=== PATIENT | male | born 1945 | race Caucasian/White ===

== ENCOUNTER 2022-07-04 10:29 | Inpatient (IN) | payer MEDICARE, OTHER ==
[~2022-07-04] VITALS: Ht 182.9 cm; Wt 98.2 kg
[~2022-07-04 10:29] MED LIST: ASPI-378 PO; CARV12.544 PO; CLOP75TA70 PO; HYDROIN8 EX; INSLANTI SC; LISI-716 PO; METF-372 PO; NITR0.4S29 SL; PANT1INJ3 PO; ROSU40TA PO
[2022-07-04] MEDS ORDERED: ASPirin 325 MG TAB PO ONE (11:45)
[2022-07-04] MEDS ORDERED: IPRATROPIUM BROM 0.5 MG/2.5ML INH SOL NEB ONE (11:45)
[2022-07-04] MEDS ORDERED: ALBUTEROL SULF 2.5 MG/0.5ML(0.5%) NEB SOLN NEB ONE (11:45)
[2022-07-04 12:14] LABS: Basophils # (auto) 0 10 ^3/uL (0-0.2); Basophils % (auto) 0.5 % (0.0-2.0); Eosinophils # (auto) 0 10 ^3/uL (0-0.8); Eosinophils % (auto) 0.3 % (0.0-7.0); Hematocrit 37.7 % (41.0-53.0); Hemoglobin 12.4 g/dL (13.5-17.5); Lymphocytes # (auto) 1.6 10 ^3/uL (0.4-5.4); Lymphocytes % (auto) 17.1 % (10.0-50.0); Mean Corpuscular Hgb Conc. 32.8 g/dL (32.0-36.0); Mean Corpuscular Volume 88.6 fL (80.0-100.0); Monocytes # (auto) 1.1 10 ^3/uL (0-1.3); Monocytes % (auto) 11.5 % (0.0-12.0); Neutrophils # (auto) 6.4 10 ^3/uL (1.6-8.6); Neutrophils % (auto) 70.6 % (37.0-80.0); Red Blood Cells 4.26 10^6/uL (4.5-5.90); Red Cell Distribution Width 16.3 % (11.8-14.3); White Blood Cell 9.1 10^3/uL (4.4-10.8)
[2022-07-04 12:29] LABS: Urine Blood 2+ /uL (Negative); Urine Specific Gravity 1.021 (1.001-1.035)
[2022-07-04 12:33] LABS: BUN/Creatinine Ratio 15.3; Calcium 8.7 mg/dL (8.5-10.1); Potassium 4.3 mmol/L (3.5-5.1)
[2022-07-04 12:34] LABS: Albumin 3.3 g/dL (3.4-5.0)
[2022-07-04 12:35] LABS: Bilirubin, Total 0.5 mg/dL (0.2-1.0); Total Protein 6.5 g/dL (6.4-8.2)
[2022-07-04 12:41] LABS: Urine WBC 7 /hpf (0 - 3)
[2022-07-04 12:42] LABS: Urine Bacteria NONE SEEN /hpf (None Seen); Urine Budding Yeast Rare /hpf (None Seen)
[2022-07-04] MEDS ORDERED: DEXTROSE (50%) 50ML SYRG IV PRN (14:15)
[2022-07-04] MEDS ORDERED: NITROGLYCERIN 0.4 MG SL TAB SL PRN (14:15)
[2022-07-04] MEDS ORDERED: MORPHINE SULFATE INJ 2 MG/ml SYRG IV PRN (14:15)
[2022-07-04] MEDS ORDERED: ALBUTEROL SULF 2.5 MG/0.5ML(0.5%) NEB SOLN NEB PRN (14:15)
[2022-07-04] MEDS ORDERED: SODIUM CHLORIDE 0.9% 1,000 ML IV ONE (14:30)
[2022-07-04] MEDS ORDERED: cefTRIAXone 1GM/50ML D5W 50 ML IV ONE (14:30)
[2022-07-04] MEDS ORDERED: METOPROLOL TARTRATE 25 MG TAB PO ONE (14:45)
[2022-07-04 14:57] VITALS: BP 111/72
[2022-07-04 15:22] LABS: Cholesterol 109 mg/dL (< 200)
[2022-07-04 15:23] LABS: % Iron Saturation 9.6 % (20-55)
[2022-07-04 15:25] LABS: HDL Cholesterol 49 mg/dL (40-59); LDL Cholesterol 51 mg/dL (< 100); Triglycerides 165 mg/dL (< 150)
[2022-07-04] MEDS: ACCU-CHEK COMFORT CURVE STRIP VI SCH ×2 (17:00→22:00)
[2022-07-04] MEDS: IPRATROPIUM BROM 0.5 MG/2.5ML INH SOL NEB SCH (18:00)
[2022-07-04] MEDS: ALBUTEROL SULF 2.5 MG/0.5ML(0.5%) NEB SOLN NEB SCH (18:00)
[2022-07-04] MEDS: InsuLIN REG 1unit/0.01ml Soln (100units/ml) SC SCH ×2 (18:44→22:00)
[2022-07-04] MEDS: SODIUM CHLORIDE 0.9% 1,000 ML IV SCH (19:42)
[2022-07-04] MEDS: CARVEDILOL 12.5 MG TAB PO SCH (19:46)
[2022-07-04] MEDS ORDERED: METOPROLOL TARTRATE 25 MG TAB PO SCH (22:00)
[2022-07-04] MEDS ORDERED: CARVEDILOL 12.5 MG TAB PO SCH (22:00)
[2022-07-04] MEDS: LISINOPRIL 10 MG TAB PO SCH (23:00)
[2022-07-04] MEDS: ASCORBIC ACID 500 MG TAB PO SCH (23:22)
[2022-07-04] MEDS: ENOXAPARIN SOD 100 MG/1 ML SYRINGE SC SCH (23:23)
[2022-07-05] MEDS ORDERED: IPRATROPIUM BROM 0.5 MG/2.5ML INH SOL ONE (00:40)
[2022-07-05] MEDS: METOPROLOL TARTRATE 1MG/1ML-5ML VIAL IV SCH ×3 (00:59→13:38)
[2022-07-05] MEDS: IPRATROPIUM BROM 0.5 MG/2.5ML INH SOL NEB SCH ×5 (01:00→23:36)
[2022-07-05] MEDS ORDERED: SODIUM CHLORIDE 0.9% 500 ML IV ONE (03:30)
[2022-07-05] MEDS ORDERED: ALBUTEROL MEDNEB 2.5 mg/3ml NEB ONE (05:48)
[2022-07-05] MEDS: CARVEDILOL 12.5 MG TAB PO SCH ×2 (07:34→20:15)
[2022-07-05] MEDS: ACCU-CHEK COMFORT CURVE STRIP VI SCH ×4 (07:38→23:09)
[2022-07-05] MEDS: InsuLIN REG 1unit/0.01ml Soln (100units/ml) SC SCH ×4 (07:43→22:00)
[2022-07-05 07:53] LABS: Basophils # (auto) 0 10 ^3/uL (0-0.2); Basophils % (auto) 0.5 % (0.0-2.0); Eosinophils # (auto) 0 10 ^3/uL (0-0.8); Eosinophils % (auto) 0.6 % (0.0-7.0); Hemoglobin 12.5 g/dL (13.5-17.5); Lymphocytes # (auto) 1.4 10 ^3/uL (0.4-5.4); Lymphocytes % (auto) 18.3 % (10.0-50.0); Mean Corpuscular Hemoglobin 28.9 pg (28.0-32.0); Mean Corpuscular Hgb Conc. 32.8 g/dL (32.0-36.0); Mean Corpuscular Volume 88.1 fL (80.0-100.0); Monocytes # (auto) 0.7 10 ^3/uL (0-1.3); Neutrophils # (auto) 5.4 10 ^3/uL (1.6-8.6); Neutrophils % (auto) 71.6 % (37.0-80.0); Red Blood Cells 4.31 10^6/uL (4.5-5.90); White Blood Cell 7.6 10^3/uL (4.4-10.8)
[2022-07-05 07:58] LABS: Albumin 3.1 g/dL (3.4-5.0); Calcium 8.4 mg/dL (8.5-10.1)
[2022-07-05 08:01] LABS: BUN/Creatinine Ratio 16.5; Bilirubin, Total 0.4 mg/dL (0.2-1.0); Phosphorus 4.4 mg/dL (2.5-4.90); Total Protein 6.9 g/dL (6.4-8.2); Uric Acid 7.4 mg/dL (3.5-7.2)
[2022-07-05] MEDS: ALBUTEROL SULF 2.5 MG/0.5ML(0.5%) NEB SOLN NEB SCH ×3 (08:29→12:30)
[2022-07-05] MEDS: SODIUM CHLORIDE 0.9% 1,000 ML IV SCH (09:00)
[2022-07-05] MEDS ORDERED: cefTRIAXone 1GM/50ML D5W 50 ML IV SCH (09:00)
[2022-07-05] MEDS ORDERED: ASPirin-EC 81 mg tab PO SCH (10:00)
[2022-07-05] MEDS ORDERED: LORazepam 2MG/ML-1ML VIAL IV PRN (10:00)
[2022-07-05] MEDS ORDERED: ENOXAPARIN SOD 40 MG/0.4 ML SYRINGE SC SCH (10:00)
[2022-07-05] MEDS: ASPirin 81 mg TAB PO SCH (11:11)
[2022-07-05] MEDS: ATORVASTATIN 20 MG TAB PO SCH (11:11)
[2022-07-05] MEDS: ASCORBIC ACID 500 MG TAB PO SCH ×2 (11:12→23:07)
[2022-07-05] MEDS: MULTIPLE VITAMIN TAB PO SCH (11:12)
[2022-07-05] MEDS: ENOXAPARIN SOD 100 MG/1 ML SYRINGE SC SCH ×2 (11:13→23:08)
[2022-07-05] MEDS: ZINC SULFATE 220mg CAP or TAB PO SCH (11:15)
[2022-07-05] MEDS: LISINOPRIL 10 MG TAB PO SCH (11:15)
[2022-07-05] MEDS ORDERED: AMIODARONE HCL 150 MG in D5W 5% 100 ML IV ONE (12:00)
[2022-07-05] MEDS ORDERED: METOPROLOL TARTRATE 1MG/1ML-5ML VIAL IV ONE (12:00)
[2022-07-05] MEDS ORDERED: DIGOXIN (250MCG/ML) 2 ML AMPULE IV ONE (12:00)
[2022-07-05] MEDS ORDERED: AMIODARONE 450mg/250ml AE 250 ML IV SCH (12:15)
[2022-07-05] MEDS ORDERED: SODIUM BICARBONATE 50ML VIAL 50 ML in SOD CHL 0.45% 1,000 ML IV SCH (14:45)
[2022-07-05] MEDS: TAMSULOSIN HYDROCHLORIDE 0.4 MG CAP PO SCH (18:25)
[2022-07-05 20:00] VITALS: BP 125/80
[2022-07-05] MEDS: AMIODARONE 450mg/250ml AE 250 ML IV SCH (20:45)
[2022-07-05 21:28] VITALS: BP 125/80
[2022-07-05 22:08] VITALS: BP 125/80
[2022-07-05] MEDS: SODIUM BICARBONATE 650 MG TAB PO SCH (23:06)
[2022-07-06] VITALS (7 sets, daily range): BP systolic 113–138; BP diastolic 64–89
[2022-07-06] MEDS: IPRATROPIUM BROM 0.5 MG/2.5ML INH SOL NEB SCH ×3 (06:00→11:11)
[2022-07-06] MEDS: InsuLIN REG 1unit/0.01ml Soln (100units/ml) SC SCH ×4 (06:01→21:21)
[2022-07-06] MEDS: ACCU-CHEK COMFORT CURVE STRIP VI SCH ×4 (06:07→21:49)
[2022-07-06] MEDS: CARVEDILOL 12.5 MG TAB PO SCH (06:31)
[2022-07-06] MEDS: PRIMIDONE 50 MG TAB PO SCH ×2 (06:32→21:49)
[2022-07-06] MEDS ORDERED: ADENOSINE 81 MG in GIVE UN-DILUTED 0 ML IV STA (07:35)
[2022-07-06] MEDS: ASPirin 81 mg TAB PO SCH (10:26)
[2022-07-06] MEDS: ENOXAPARIN SOD 100 MG/1 ML SYRINGE SC SCH (10:26)
[2022-07-06] MEDS: DIGOXIN 0.125 MG TAB PO SCH (10:26)
[2022-07-06] MEDS: AMIODARONE 450mg/250ml AE 250 ML IV SCH (10:26)
[2022-07-06] MEDS: ATORVASTATIN 20 MG TAB PO SCH (10:27)
[2022-07-06] MEDS: ZINC SULFATE 220mg CAP or TAB PO SCH (10:27)
[2022-07-06] MEDS: SODIUM BICARBONATE 650 MG TAB PO SCH ×2 (10:27→21:47)
[2022-07-06] MEDS: ASCORBIC ACID 500 MG TAB PO SCH ×2 (10:27→21:48)
[2022-07-06] MEDS: MULTIPLE VITAMIN TAB PO SCH (10:27)
[2022-07-06 11:42] LABS: Basophils # (auto) 0.1 10 ^3/uL (0-0.2); Basophils % (auto) 0.6 % (0.0-2.0); Eosinophils # (auto) 0.1 10 ^3/uL (0-0.8); Eosinophils % (auto) 0.9 % (0.0-7.0); Hematocrit 41.4 % (41.0-53.0); Hemoglobin 13.5 g/dL (13.5-17.5); Lymphocytes # (auto) 1.4 10 ^3/uL (0.4-5.4); Lymphocytes % (auto) 14.1 % (10.0-50.0); Mean Corpuscular Hemoglobin 29.3 pg (28.0-32.0); Mean Corpuscular Hgb Conc. 32.6 g/dL (32.0-36.0); Mean Corpuscular Volume 89.7 fL (80.0-100.0); Monocytes # (auto) 0.8 10 ^3/uL (0-1.3); Monocytes % (auto) 8.1 % (0.0-12.0); Neutrophils # (auto) 7.6 10 ^3/uL (1.6-8.6); Neutrophils % (auto) 76.3 % (37.0-80.0); Red Blood Cells 4.61 10^6/uL (4.5-5.90); Red Cell Distribution Width 16.4 % (11.8-14.3)
[2022-07-06 11:50] LABS: Albumin 2.9 g/dL (3.4-5.0); BUN/Creatinine Ratio 15.7; Calcium 8.5 mg/dL (8.5-10.1); Potassium 4.7 mmol/L (3.5-5.1)
[2022-07-06 11:53] LABS: Bilirubin, Total 0.4 mg/dL (0.2-1.0); Total Protein 6.5 g/dL (6.4-8.2)
[2022-07-06] MEDS ORDERED: AMIODARONE HCL 200 MG TAB PO ONE (15:15)
[2022-07-06] MEDS ORDERED: MAGNESIUM SULFATE 1GM/100ML 100 ML IV ONE (15:15)
[2022-07-06] MEDS: TAMSULOSIN HYDROCHLORIDE 0.4 MG CAP PO SCH (17:36)
[2022-07-06] MEDS: AMIODARONE HCL 200 MG TAB PO SCH (21:47)
[2022-07-07 05:00] VITALS: BP 129/75
[2022-07-07] MEDS: InsuLIN REG 1unit/0.01ml Soln (100units/ml) SC SCH ×4 (06:02→22:07)
[2022-07-07] MEDS: PRIMIDONE 50 MG TAB PO SCH (06:35)
[2022-07-07] MEDS: ACCU-CHEK COMFORT CURVE STRIP VI SCH ×4 (06:36→22:03)
[2022-07-07 07:05] LABS: Basophils # (auto) 0.1 10 ^3/uL (0-0.2); Basophils % (auto) 0.8 % (0.0-2.0); Eosinophils # (auto) 0.2 10 ^3/uL (0-0.8); Eosinophils % (auto) 2.7 % (0.0-7.0); Hematocrit 36.9 % (41.0-53.0); Hemoglobin 12.5 g/dL (13.5-17.5); Lymphocytes # (auto) 1.2 10 ^3/uL (0.4-5.4); Lymphocytes % (auto) 17.6 % (10.0-50.0); Mean Corpuscular Hemoglobin 29.4 pg (28.0-32.0); Mean Corpuscular Hgb Conc. 33.8 g/dL (32.0-36.0); Mean Corpuscular Volume 87.1 fL (80.0-100.0); Monocytes # (auto) 0.7 10 ^3/uL (0-1.3); Monocytes % (auto) 10.5 % (0.0-12.0); Neutrophils # (auto) 4.7 10 ^3/uL (1.6-8.6); Neutrophils % (auto) 68.4 % (37.0-80.0); Red Blood Cells 4.24 10^6/uL (4.5-5.90); Red Cell Distribution Width 16.1 % (11.8-14.3); White Blood Cell 6.9 10^3/uL (4.4-10.8)
[2022-07-07 07:44] LABS: BUN/Creatinine Ratio 14.1; Calcium 8.6 mg/dL (8.5-10.1); Potassium 3.9 mmol/L (3.5-5.1)
[2022-07-07 08:00] VITALS: BP 140/86
[2022-07-07 08:10] VITALS: BP 140/86
[2022-07-07] MEDS: ZINC SULFATE 220mg CAP or TAB PO SCH (09:37)
[2022-07-07] MEDS: ASPirin 81 mg TAB PO SCH (09:37)
[2022-07-07] MEDS: AMIODARONE HCL 200 MG TAB PO SCH ×2 (09:38→22:02)
[2022-07-07] MEDS: DIGOXIN 0.125 MG TAB PO SCH (09:38)
[2022-07-07] MEDS: METOPROLOL SUCCINATE XL 50 MG TAB PO SCH (09:39)
[2022-07-07] MEDS: MULTIPLE VITAMIN TAB PO SCH (09:39)
[2022-07-07] MEDS: ENOXAPARIN SOD 40 MG/0.4 ML SYRINGE SC SCH (09:40)
[2022-07-07] MEDS: ASCORBIC ACID 500 MG TAB PO SCH ×2 (09:40→22:02)
[2022-07-07] MEDS ORDERED: dilTIAZem 25 MG/5 ML VIAL IV ONE (10:00)
[2022-07-07] MEDS: ATORVASTATIN 20 MG TAB PO SCH (10:17)
[2022-07-07 12:05] VITALS: BP 98/68
[2022-07-07] MEDS ORDERED: MAGNESIUM OXIDE 400 MG TAB PO ONE (13:00)
[2022-07-07] MEDS ORDERED: POTASSIUM EFFERVESENT TAB 25 MEQ GT ONE (13:00)
[2022-07-07 16:10] VITALS: BP 100/69
[2022-07-07] MEDS: TAMSULOSIN HYDROCHLORIDE 0.4 MG CAP PO SCH (18:22)
[2022-07-07 22:37] VITALS: BP 114/74
[2022-07-08 05:04] VITALS: BP 126/83
[2022-07-08] MEDS: ACCU-CHEK COMFORT CURVE STRIP VI SCH ×4 (06:37→21:47)
[2022-07-08] MEDS: PRIMIDONE 50 MG TAB PO SCH (06:37)
[2022-07-08] MEDS: InsuLIN REG 1unit/0.01ml Soln (100units/ml) SC SCH ×4 (06:37→21:48)
[2022-07-08 06:46] LABS: Basophils # (auto) 0.1 10 ^3/uL (0-0.2); Basophils % (auto) 0.9 % (0.0-2.0); Eosinophils # (auto) 0.2 10 ^3/uL (0-0.8); Eosinophils % (auto) 3.6 % (0.0-7.0); Hemoglobin 11.8 g/dL (13.5-17.5); Lymphocytes # (auto) 1.5 10 ^3/uL (0.4-5.4); Lymphocytes % (auto) 22.3 % (10.0-50.0); Mean Corpuscular Hemoglobin 28.6 pg (28.0-32.0); Mean Corpuscular Hgb Conc. 32.7 g/dL (32.0-36.0); Mean Corpuscular Volume 87.5 fL (80.0-100.0); Monocytes # (auto) 0.6 10 ^3/uL (0-1.3); Monocytes % (auto) 9.5 % (0.0-12.0); Neutrophils # (auto) 4.2 10 ^3/uL (1.6-8.6); Neutrophils % (auto) 63.7 % (37.0-80.0); Red Blood Cells 4.12 10^6/uL (4.5-5.90); Red Cell Distribution Width 15.9 % (11.8-14.3); White Blood Cell 6.6 10^3/uL (4.4-10.8)
[2022-07-08 06:49] LABS: BUN/Creatinine Ratio 13.5; Calcium 8.2 mg/dL (8.5-10.1); Potassium 3.8 mmol/L (3.5-5.1)
[2022-07-08 08:30] VITALS: BP 126/83
[2022-07-08 09:00] VITALS: BP 131/90
[2022-07-08] MEDS: ZINC SULFATE 220mg CAP or TAB PO SCH (09:44)
[2022-07-08] MEDS: ASPirin 81 mg TAB PO SCH (09:44)
[2022-07-08] MEDS: DIGOXIN 0.125 MG TAB PO SCH (09:45)
[2022-07-08] MEDS: AMIODARONE HCL 200 MG TAB PO SCH ×2 (09:45→21:45)
[2022-07-08] MEDS: MULTIPLE VITAMIN TAB PO SCH (09:46)
[2022-07-08] MEDS: ATORVASTATIN 20 MG TAB PO SCH (09:46)
[2022-07-08] MEDS: ASCORBIC ACID 500 MG TAB PO SCH ×2 (09:47→21:42)
[2022-07-08] MEDS: METOPROLOL SUCCINATE XL 50 MG TAB PO SCH (09:47)
[2022-07-08] MEDS: ENOXAPARIN SOD 40 MG/0.4 ML SYRINGE SC SCH (09:48)
[2022-07-08 13:11] VITALS: BP 138/81
[2022-07-08] MEDS ORDERED: MAGNESIUM SULFATE 1GM/100ML 100 ML IV ONE (14:45)
[2022-07-08 16:57] VITALS: BP 119/76
[2022-07-08] MEDS: TAMSULOSIN HYDROCHLORIDE 0.4 MG CAP PO SCH (17:52)
[2022-07-08] MEDS: APIXABAN 2.5 MG TAB PO SCH (21:43)
[2022-07-08 21:47] VITALS: BP 105/64
[2022-07-08] MEDS ORDERED: ENOXAPARIN SOD 100 MG/1 ML SYRINGE SC SCH (22:00)
[2022-07-09] VITALS: BP 114/70
[2022-07-09 04:51] VITALS: BP 119/79
[2022-07-09 06:04] LABS: Basophils # (auto) 0 10 ^3/uL (0-0.2); Basophils % (auto) 0.7 % (0.0-2.0); Eosinophils # (auto) 0.3 10 ^3/uL (0-0.8); Eosinophils % (auto) 4.3 % (0.0-7.0); Hematocrit 35.3 % (41.0-53.0); Hemoglobin 11.5 g/dL (13.5-17.5); Lymphocytes # (auto) 1.4 10 ^3/uL (0.4-5.4); Lymphocytes % (auto) 18.9 % (10.0-50.0); Mean Corpuscular Hemoglobin 28.5 pg (28.0-32.0); Mean Corpuscular Hgb Conc. 32.7 g/dL (32.0-36.0); Mean Corpuscular Volume 87.3 fL (80.0-100.0); Monocytes # (auto) 0.7 10 ^3/uL (0-1.3); Monocytes % (auto) 9.6 % (0.0-12.0); Neutrophils # (auto) 4.8 10 ^3/uL (1.6-8.6); Neutrophils % (auto) 66.5 % (37.0-80.0); Red Blood Cells 4.04 10^6/uL (4.5-5.90); Red Cell Distribution Width 15.6 % (11.8-14.3); White Blood Cell 7.2 10^3/uL (4.4-10.8)
[2022-07-09] MEDS: InsuLIN REG 1unit/0.01ml Soln (100units/ml) SC SCH ×4 (06:15→21:22)
[2022-07-09] MEDS: ACCU-CHEK COMFORT CURVE STRIP VI SCH ×4 (06:15→21:22)
[2022-07-09] MEDS: PRIMIDONE 50 MG TAB PO SCH (06:20)
[2022-07-09 06:25] LABS: Calcium 8.4 mg/dL (8.5-10.1); Magnesium 1.8 mg/dL (1.6-2.6)
[2022-07-09 06:27] LABS: BUN/Creatinine Ratio 13.5
[2022-07-09] MEDS ORDERED: dilTIAZem 25 MG/5 ML VIAL IV ONE (07:15)
[2022-07-09 08:00] VITALS: BP 131/90
[2022-07-09 08:22] VITALS: BP 122/60
[2022-07-09] MEDS: AMIODARONE HCL 200 MG TAB PO SCH ×2 (08:56→21:22)
[2022-07-09] MEDS: ZINC SULFATE 220mg CAP or TAB PO SCH (08:56)
[2022-07-09] MEDS: MULTIPLE VITAMIN TAB PO SCH (08:58)
[2022-07-09] MEDS: ATORVASTATIN 20 MG TAB PO SCH (08:58)
[2022-07-09] MEDS: METOPROLOL SUCCINATE XL 50 MG TAB PO SCH (08:58)
[2022-07-09] MEDS: APIXABAN 2.5 MG TAB PO SCH ×2 (08:58→21:22)
[2022-07-09] MEDS: DIGOXIN 0.125 MG TAB PO SCH (08:58)
[2022-07-09] MEDS: ASCORBIC ACID 500 MG TAB PO SCH ×2 (08:59→21:22)
[2022-07-09] MEDS ORDERED: MAGNESIUM SULFATE 1GM/100ML 100 ML IV ONE (09:30)
[2022-07-09 12:55] VITALS: BP 132/88
[2022-07-09] MEDS ORDERED: fentaNYL CITRATE 100 MCG/2 ML VL IV ONE (16:30)
[2022-07-09] MEDS ORDERED: MIDAZOLAM HCL 2MG/2ML 2ml VIAL (1mg/ml) IV ONE (16:30)
[2022-07-09] MEDS ORDERED: LIDOCAINE VISCOUS 2% 15ML UD MT ONE (16:30)
[2022-07-09 16:33] VITALS: BP 126/73
[2022-07-09] MEDS ORDERED: fentaNYL CITRATE 100 MCG/2 ML VL ONE (16:34)
[2022-07-09] MEDS ORDERED: MIDAZOLAM HCL 2MG/2ML 2ml VIAL (1mg/ml) ONE (16:35)
[2022-07-09] MEDS ORDERED: LIDOCAINE VISCOUS 2% 15ML UD ONE (16:35)
[2022-07-09] MEDS: TAMSULOSIN HYDROCHLORIDE 0.4 MG CAP PO SCH (18:06)
[2022-07-10 05:00] VITALS: BP 122/64
[2022-07-10 05:29] LABS: Basophils # (auto) 0.1 10 ^3/uL (0-0.2); Basophils % (auto) 1.1 % (0.0-2.0); Eosinophils # (auto) 0.3 10 ^3/uL (0-0.8); Eosinophils % (auto) 3.6 % (0.0-7.0); Hematocrit 36.1 % (41.0-53.0); Lymphocytes # (auto) 1.5 10 ^3/uL (0.4-5.4); Lymphocytes % (auto) 19.6 % (10.0-50.0); Mean Corpuscular Hgb Conc. 33.4 g/dL (32.0-36.0); Monocytes # (auto) 0.7 10 ^3/uL (0-1.3); Monocytes % (auto) 8.9 % (0.0-12.0); Neutrophils % (auto) 66.8 % (37.0-80.0); Red Blood Cells 4.15 10^6/uL (4.5-5.90); Red Cell Distribution Width 15.6 % (11.8-14.3); White Blood Cell 7.4 10^3/uL (4.4-10.8)
[2022-07-10] MEDS: ACCU-CHEK COMFORT CURVE STRIP VI SCH ×4 (05:58→21:39)
[2022-07-10] MEDS: PRIMIDONE 50 MG TAB PO SCH (05:58)
[2022-07-10] MEDS: InsuLIN REG 1unit/0.01ml Soln (100units/ml) SC SCH ×4 (05:58→21:41)
[2022-07-10 05:59] LABS: BUN/Creatinine Ratio 12.5; Calcium 8.4 mg/dL (8.5-10.1); Potassium 4.1 mmol/L (3.5-5.1)
[2022-07-10 08:30] VITALS: BP 126/84
[2022-07-10] MEDS: MULTIPLE VITAMIN TAB PO SCH (10:00)
[2022-07-10] MEDS ORDERED: DIGO1TAB48 PO (11:06)
[2022-07-10] MEDS ORDERED: APIX2.5T PO (11:06)
[2022-07-10] MEDS ORDERED: TAM04C PO (11:06)
[2022-07-10] MEDS ORDERED: DILT120C12 PO (11:06)
[2022-07-10] MEDS: ZINC SULFATE 220mg CAP or TAB PO SCH (11:16)
[2022-07-10] MEDS: dilTIAZem 120MG ER CAP PO SCH (11:16)
[2022-07-10] MEDS: ATORVASTATIN 20 MG TAB PO SCH (11:16)
[2022-07-10] MEDS: ASCORBIC ACID 500 MG TAB PO SCH ×2 (11:17→21:42)
[2022-07-10] MEDS: AMIODARONE HCL 200 MG TAB PO SCH ×2 (11:17→21:43)
[2022-07-10] MEDS: DIGOXIN 0.125 MG TAB PO SCH (11:18)
[2022-07-10] MEDS: APIXABAN 2.5 MG TAB PO SCH (11:18)
[2022-07-10] MEDS ORDERED: TAMS0.4C36 PO (12:21)
[2022-07-10] MEDS ORDERED: DIGO0.12 PO (12:23)
[2022-07-10] MEDS ORDERED: DILT-29 PO (12:23)
[2022-07-10] MEDS ORDERED: APIX5TAB PO ×2 (12:23)
[2022-07-10 17:00] VITALS: BP 112/77
[2022-07-10] MEDS: TAMSULOSIN HYDROCHLORIDE 0.4 MG CAP PO SCH (18:38)
[2022-07-10 19:30] VITALS: BP 120/68
[2022-07-10] MEDS: APIXABAN 5 MG TAB PO SCH (21:41)
[2022-07-10 22:00] VITALS: BP 120/68
[2022-07-11 05:00] VITALS: BP 99/66
[2022-07-11 06:06] LABS: Basophils # (auto) 0 10 ^3/uL (0-0.2); Basophils % (auto) 0.6 % (0.0-2.0); Eosinophils # (auto) 0.3 10 ^3/uL (0-0.8); Eosinophils % (auto) 3.7 % (0.0-7.0); Hematocrit 38.4 % (41.0-53.0); Hemoglobin 12.1 g/dL (13.5-17.5); Lymphocytes # (auto) 1.6 10 ^3/uL (0.4-5.4); Lymphocytes % (auto) 21.3 % (10.0-50.0); Mean Corpuscular Hemoglobin 27.9 pg (28.0-32.0); Mean Corpuscular Hgb Conc. 31.6 g/dL (32.0-36.0); Mean Corpuscular Volume 88.4 fL (80.0-100.0); Monocytes # (auto) 0.7 10 ^3/uL (0-1.3); Monocytes % (auto) 9.1 % (0.0-12.0); Neutrophils # (auto) 4.8 10 ^3/uL (1.6-8.6); Neutrophils % (auto) 65.3 % (37.0-80.0); Nucleated Red Blood Cells % 0.1 %; Red Blood Cells 4.34 10^6/uL (4.5-5.90); Red Cell Distribution Width 16.3 % (11.8-14.3); White Blood Cell 7.4 10^3/uL (4.4-10.8)
[2022-07-11 06:31] LABS: Calcium 8.7 mg/dL (8.5-10.1); Potassium 4.6 mmol/L (3.5-5.1)
[2022-07-11] MEDS: ACCU-CHEK COMFORT CURVE STRIP VI SCH ×4 (06:33→22:07)
[2022-07-11 06:34] LABS: BUN/Creatinine Ratio 13.3
[2022-07-11] MEDS: PRIMIDONE 50 MG TAB PO SCH (06:34)
[2022-07-11] MEDS: InsuLIN REG 1unit/0.01ml Soln (100units/ml) SC SCH ×4 (06:38→22:09)
[2022-07-11 09:00] VITALS: BP 117/58
[2022-07-11] MEDS: AMIODARONE HCL 200 MG TAB PO SCH ×2 (10:15→22:06)
[2022-07-11] MEDS: APIXABAN 5 MG TAB PO SCH ×2 (10:15→22:06)
[2022-07-11] MEDS: ZINC SULFATE 220mg CAP or TAB PO SCH (10:15)
[2022-07-11] MEDS: DIGOXIN 0.125 MG TAB PO SCH (10:16)
[2022-07-11] MEDS: ATORVASTATIN 20 MG TAB PO SCH (10:16)
[2022-07-11] MEDS: MULTIPLE VITAMIN TAB PO SCH (10:17)
[2022-07-11] MEDS: ASCORBIC ACID 500 MG TAB PO SCH ×2 (10:17→22:06)
[2022-07-11] MEDS: dilTIAZem 120MG ER CAP PO SCH (10:20)
[2022-07-11 13:00] VITALS: BP 102/65
[2022-07-11] MEDS ORDERED: diphenhdrAMINE HCL 25 MG CAP PO PRN (16:15)
[2022-07-11 17:00] VITALS: BP 112/67
[2022-07-11] MEDS: TAMSULOSIN HYDROCHLORIDE 0.4 MG CAP PO SCH (18:30)
[2022-07-11 19:30] VITALS: BP 128/70
[2022-07-11 22:00] VITALS: BP 128/70
[2022-07-12 05:48] VITALS: BP 146/81
[2022-07-12] MEDS: PRIMIDONE 50 MG TAB PO SCH (06:42)
[2022-07-12] MEDS: ACCU-CHEK COMFORT CURVE STRIP VI SCH ×2 (06:42→12:20)
[2022-07-12] MEDS: InsuLIN REG 1unit/0.01ml Soln (100units/ml) SC SCH ×2 (06:43→12:24)
[2022-07-12 08:00] VITALS: BP 127/81
[2022-07-12 08:42] VITALS: BP 127/81
[2022-07-12] MEDS: AMIODARONE HCL 200 MG TAB PO SCH (10:07)
[2022-07-12] MEDS: ATORVASTATIN 20 MG TAB PO SCH (10:07)
[2022-07-12] MEDS: ZINC SULFATE 220mg CAP or TAB PO SCH (10:08)
[2022-07-12] MEDS: DIGOXIN 0.125 MG TAB PO SCH (10:08)
[2022-07-12] MEDS: dilTIAZem 120MG ER CAP PO SCH (10:09)
[2022-07-12] MEDS: ASCORBIC ACID 500 MG TAB PO SCH (10:09)
[2022-07-12] MEDS: APIXABAN 5 MG TAB PO SCH (10:09)
[2022-07-12] MEDS: MULTIPLE VITAMIN TAB PO SCH (10:09)
[2022-07-12 12:13] VITALS: BP 122/76
== END 2022-07-12 13:06 | disposition home or self-care (01) | DRG 280 ==
LOC: EDBD 10:29 → ER 10:29 → TELE 14:14 → TELE-WESTW 07-05 21:25
PROVIDERS: ADMIT Nurse Practitioner Family; ATTEND Student in an Organized Health Care Education/Training Program
PROC: B24BZZ4 Ultrasonography of Heart with Aorta, Transesophageal (ICD-10-PCS; principal; 2022-07-09)
DX: I48.91 Unspecified atrial fibrillation (principal); I21.A1 Myocardial infarction type 2; N17.0 Acute kidney failure with tubular necrosis; E87.20 Acidosis, unspecified; I13.0 Hypertensive heart and chronic kidney disease with heart failure and stage 1 through stage 4 chronic kidney disease, or unspecified chronic kidney disease; E78.5 Hyperlipidemia, unspecified; D63.1 Anemia in chronic kidney disease; E11.22 Type 2 diabetes mellitus with diabetic chronic kidney disease; E11.42 Type 2 diabetes mellitus with diabetic polyneuropathy; E66.9 Obesity, unspecified; G25.0 Essential tremor; H91.90 Unspecified hearing loss, unspecified ear; I25.10 Atherosclerotic heart disease of native coronary artery without angina pectoris; I50.9 Heart failure, unspecified; I95.9 Hypotension, unspecified; Z68.30 Body mass index [BMI] 30.0-30.9, adult; K40.90 Unilateral inguinal hernia, without obstruction or gangrene, not specified as recurrent; N20.0 Calculus of kidney; I51.3 Intracardiac thrombosis, not elsewhere classified; N39.490 Overflow incontinence; I48.92 Unspecified atrial flutter; F17.200 Nicotine dependence, unspecified, uncomplicated; R55 Syncope and collapse; E11.40 Type 2 diabetes mellitus with diabetic neuropathy, unspecified; N18.2 Chronic kidney disease, stage 2 (mild); N30.91 Cystitis, unspecified with hematuria; N40.1 Benign prostatic hyperplasia with lower urinary tract symptoms; R33.8 Other retention of urine; Z79.01 Long term (current) use of anticoagulants; Z79.02 Long term (current) use of antithrombotics/antiplatelets; Z79.4 Long term (current) use of insulin; Z79.82 Long term (current) use of aspirin; Z79.899 Other long term (current) drug therapy; Z82.49 Family history of ischemic heart disease and other diseases of the circulatory system; Z83.3 Family history of diabetes mellitus; Z95.1 Presence of aortocoronary bypass graft; I25.2 Old myocardial infarction; Z88.8 Allergy status to other drugs, medicaments and biological substances
CPT/HCPCS: 36415; 70551; 71045; 74176; 76775; 78452; 80048; 80053; 80061; 80162; 81001; 82306; 82962; 83036; 83540; 83550; 83735; 83880; 83935; 83970; 84100; 84154; 84443; 84484; 84550; 85025; 85379; 87086; 87426; 93005; 93017; 93306; 93312; 94640; 95819; 96361; 96365; 99152; G0378; J0153; J0696; J1815; J2250; J7060

== ENCOUNTER 2023-12-06 06:39 | Inpatient (IN) | payer OTHER ==
[~2023-12-06] VITALS: Ht 170.2 cm; Wt 86.7 kg
[~2023-12-06 06:39] MED LIST changes: +APIX2.5T PO; +APIX5TAB PO; -ASPI-378 PO; -CARV12.544 PO; -CLOP75TA70 PO; +DIGO0.12 PO; +DIGO1TAB48 PO; +DILT-29 PO; +DILT120C12 PO; -LISI-716 PO; -NITR0.4S29 SL; -ROSU40TA PO; +ROSU40TA81 PO; +TAMS-35 PO; +TAMS0.4C36 PO
[2023-12-06] MEDS: SODIUM CHLORIDE 0.9% 500 ML IVB ONE (07:00)
[2023-12-06 07:13] LABS: Basophils # (auto) 0 10 ^3/uL (0-0.2); Basophils % (auto) 0.4 % (0.0-2.0); Eosinophils # (auto) 0.1 10 ^3/uL (0-0.8); Eosinophils % (auto) 1.1 % (0.0-7.0); Hematocrit 27.9 % (41.0-53.0); Lymphocytes # (auto) 0.5 10 ^3/uL (0.4-5.4); Lymphocytes % (auto) 4.5 % (10.0-50.0); Mean Corpuscular Volume 87.5 fL (80.0-100.0); Monocytes # (auto) 0.5 10 ^3/uL (0-1.3); Monocytes % (auto) 4.6 % (0.0-12.0); Neutrophils # (auto) 10.4 10 ^3/uL (1.6-8.6); Neutrophils % (auto) 89.4 % (37.0-80.0); Red Blood Cells 3.19 10^6/uL (4.5-5.90); Red Cell Distribution Width 16.6 % (11.8-14.3); White Blood Cell 11.6 10^3/uL (4.4-10.8)
[2023-12-06] MEDS: DIGOXIN (250MCG/ML) 2 ML AMPULE IV ONE (07:39)
[2023-12-06] MEDS: LABETALOL HCL 5 MG/ML 4ML SYRINGE IV ONE (07:45)
[2023-12-06 08:15] VITALS: PULSE 106; RESP 14; O2SAT 100
[2023-12-06 09:25] LABS: Alanine Aminotransferase 29 U/L (7-40); Alkaline Phosphatase 112 U/L (46-116); Anion Gap 9 (5-15); Aspartate Aminotransferase 18 U/L (13-40); BUN/Creatinine Ratio 7.2 (10.0-20.0); Blood Urea Nitrogen 9 mg/dL (9-23); Carbon Dioxide 24 mmol/L (20-30); Chloride 100 mmol/L (98-107); Magnesium 1.4 mg/dL (1.6-2.6); Potassium 3.7 mmol/L (3.5-5.1); Sodium 133 mmol/L (136-145)
[2023-12-06 09:26] LABS: Albumin 3.9 g/dL (3.2-4.8); Bilirubin, Total 0.2 mg/dL (0.2-1.0); Phosphorus 2.5 mg/dL (2.4-5.1); Total Protein 6.9 g/dL (5.7-8.2)
[2023-12-06 09:28] LABS: INR 1.11 (0.9-1.15); Prothrombin Time 11.7 sec (9.3-11.8)
[2023-12-06 09:29] LABS: Glucose 457 mg/dL (74-106)
[2023-12-06] MEDS: PANTOPRAZOLE 40 MG/10 ML VIAL INJ IV ONE (09:46)
[2023-12-06] MEDS: DIGOXIN 0.125 MG TAB PO SCH (10:00)
[2023-12-06] MEDS: Rosuvastatin Calcium (Crestor) 40MG TABLET PO SCH (10:00)
[2023-12-06] MEDS: dilTIAZem 120MG ER CAP PO SCH (10:00)
[2023-12-06] MEDS: APIXABAN 5 MG TAB PO SCH (10:31)
[2023-12-06] MEDS: InsuLIN REG 1unit/0.01ml Soln (100units/ml) IV ONE (10:32)
[2023-12-06] MEDS ORDERED: DEXTROSE (50%) 50ML SYRG IV PRN (11:30)
[2023-12-06] MEDS: ACCU-CHEK COMFORT CURVE STRIP VI SCH (12:00)
[2023-12-06] MEDS: InsuLIN REG 1unit/0.01ml Soln (100units/ml) SC SCH ×2 (12:00→23:54)
[2023-12-06] MEDS: MORPHINE SULFATE INJ 2 MG/ml SYRG IV PRN (16:29)
[2023-12-06 16:48] LABS: Urine Bacteria FEW /hpf (None Seen); Urine Blood 1+ /uL (Negative); Urine Budding Yeast LOADED /hpf (None Seen); Urine Clarity Turbid (Clear); Urine Color Yellow (Yellow); Urine Protein, UAD 1+ (Negative); Urine Specific Gravity 1.016 (1.001-1.035); Urine Urobilinogen Normal (Negative); Urine WBC 358 /hpf (0 - 3); Urine WBC Clumps PRESENT /hpf (None Seen); Urine pH 5.5 (5.0-9.0)
[2023-12-06 17:02] LABS: Amphetamine Screen, Urine Neg (NEGATIVE); Barbiturate Scree,Urine Pos (NEGATIVE); Benzodiazephine Screen, Urine Neg (NEGATIVE); Cannabinoid Screen, Urine Neg (NEGATIVE); Cocaine Screen, Urine Neg (NEGATIVE); Opiate Scree,Urine Neg (NEGATIVE); Phencyclidine Screen, Urine Neg (NEGATIVE)
[2023-12-06 19:30] VITALS: PULSE 112; RESP 22; O2SAT 98
[2023-12-06] MEDS: ONDANSETRON HCL 4 MG/2 ML VIAL IV PRN (19:45)
[2023-12-06] MEDS: SODIUM CHLORIDE 0.9% 500 ML IV ONE (21:45)
[2023-12-06 23:30] VITALS: BP 102/58; PULSE 88; RESP 16; TEMP 98.2; O2SAT 100
[2023-12-06 23:45] VITALS: BP 102/58; PULSE 88; RESP 16; TEMP 98.2; O2SAT 100
[2023-12-06] MEDS: TAMSULOSIN HYDROCHLORIDE 0.4 MG CAP PO SCH (23:49)
[2023-12-07] VITALS (8 sets, daily range): BP systolic 91–157; BP diastolic 46–70; PULSE 68–113; RESP 14–18; TEMP 97.7–98.4; O2SAT 97–100
[2023-12-07] MEDS ORDERED: cloNIDine HCL 0.1 MG TAB PO PRN (02:00)
[2023-12-07] MEDS: TEMAZEPAM 15 MG CAP PO ONE (02:35)
[2023-12-07] MEDS: HYDROcodone-ACET 5/325MG TAB PO PRN (06:19)
[2023-12-07 06:29] LABS: Basophils # (auto) 0.1 10 ^3/uL (0-0.2); Basophils % (auto) 0.5 % (0.0-2.0); Eosinophils # (auto) 0.1 10 ^3/uL (0-0.8); Hematocrit 24.6 % (41.0-53.0); Hemoglobin 8.1 g/dL (13.5-17.5); Lymphocytes # (auto) 0.4 10 ^3/uL (0.4-5.4); Mean Corpuscular Hemoglobin 28.8 pg (28.0-32.0); Mean Corpuscular Hgb Conc. 32.8 g/dL (32.0-36.0); Mean Corpuscular Volume 87.9 fL (80.0-100.0); Monocytes # (auto) 0.6 10 ^3/uL (0-1.3); Monocytes % (auto) 4.8 % (0.0-12.0); Neutrophils # (auto) 10.9 10 ^3/uL (1.6-8.6); Neutrophils % (auto) 90.7 % (37.0-80.0); Red Cell Distribution Width 16.1 % (11.8-14.3)
[2023-12-07 06:47] LABS: Alanine Aminotransferase 27 U/L (7-40); Albumin 3.8 g/dL (3.2-4.8); Alkaline Phosphatase 107 U/L (46-116); Anion Gap 9 (5-15); Aspartate Aminotransferase 22 U/L (13-40); BUN/Creatinine Ratio 8.8 (10.0-20.0); Bilirubin, Total 0.2 mg/dL (0.2-1.0); Blood Urea Nitrogen 10 mg/dL (9-23); Calcium 8.7 mg/dL (8.5-10.1); Carbon Dioxide 24 mmol/L (20-30); Chloride 103 mmol/L (98-107); Potassium 3.3 mmol/L (3.5-5.1); Sodium 136 mmol/L (136-145); Total Protein 6.5 g/dL (5.7-8.2)
[2023-12-07 06:50] LABS: Glucose 264 mg/dL (74-106)
[2023-12-07] MEDS: DIGOXIN 0.125 MG TAB PO SCH (10:22)
[2023-12-07] MEDS: PANTOPRAZOLE 40 MG/10 ML VIAL INJ IV SCH (10:24)
[2023-12-07] MEDS: POTASSIUM CHL 20 Meq TABLET PO ONE (11:48)
[2023-12-07] MEDS: SODIUM CHLORIDE 0.9% 1,000 ML IV SCH (11:49)
[2023-12-07] MEDS: ACETAMINOPHEN 325 MG TAB PO PRN (20:11)
[2023-12-07] MEDS: ROSUVASTATIN CALCIUM 20 MG PO SCH (21:50)
[2023-12-08] VITALS (7 sets, daily range): BP systolic 91–145; BP diastolic 61–80; PULSE 68–101; RESP 16–20; TEMP 97.6–98.6; O2SAT 20–100
[2023-12-08 07:14] LABS: Basophils # (auto) 0 10 ^3/uL (0-0.2); Basophils % (auto) 0.4 % (0.0-2.0); Eosinophils # (auto) 0.2 10 ^3/uL (0-0.8); Hemoglobin 8.2 g/dL (13.5-17.5); Lymphocytes # (auto) 0.4 10 ^3/uL (0.4-5.4)
[2023-12-08 07:17] LABS: Eosinophils % (auto) 2.2 % (0.0-7.0); Hematocrit 24.7 % (41.0-53.0); Lymphocytes % (auto) 4.9 % (10.0-50.0); Mean Corpuscular Hemoglobin 29.1 pg (28.0-32.0); Monocytes # (auto) 0.6 10 ^3/uL (0-1.3); Monocytes % (auto) 7.3 % (0.0-12.0); Neutrophils # (auto) 7.2 10 ^3/uL (1.6-8.6); Neutrophils % (auto) 85.2 % (37.0-80.0); Red Blood Cells 2.81 10^6/uL (4.5-5.90); Red Cell Distribution Width 16.3 % (11.8-14.3); White Blood Cell 8.4 10^3/uL (4.4-10.8)
[2023-12-08 07:25] LABS: Alanine Aminotransferase 34 U/L (7-40); Albumin 3.6 g/dL (3.2-4.8); Alkaline Phosphatase 104 U/L (46-116); Anion Gap 8 (5-15); Aspartate Aminotransferase 31 U/L (13-40); BUN/Creatinine Ratio 9.6 (10.0-20.0); Blood Urea Nitrogen 8 mg/dL (9-23); Calcium 8.4 mg/dL (8.7-10.4); Carbon Dioxide 26 mmol/L (20-30); Chloride 105 mmol/L (98-107); Glucose 223 mg/dL (74-106); Magnesium 1.4 mg/dL (1.6-2.6); Potassium 3.4 mmol/L (3.5-5.1); Sodium 139 mmol/L (136-145)
[2023-12-08 07:26] LABS: Bilirubin, Total 0.2 mg/dL (0.2-1.0); Total Protein 6.7 g/dL (5.7-8.2)
[2023-12-08] MEDS: DOCUSATE SOD 100 MG CAP PO PRN (09:16)
[2023-12-08] MEDS: HYDROcodone-ACET 5/325MG TAB PO PRN (09:17)
[2023-12-08] MEDS: POTASSIUM CHL 20 Meq TABLET PO ONE (14:18)
[2023-12-08] MEDS: MAGNESIUM OXIDE 400 MG TAB PO ONE (14:18)
[2023-12-08] MEDS: AMIODARONE HCL 200 MG TAB PO ONE (14:21)
[2023-12-08] MEDS: MAGNESIUM OXIDE 400 MG TAB PO SCH (21:23)
[2023-12-08] MEDS: AMIODARONE HCL 200 MG TAB PO SCH (21:23)
[2023-12-09] VITALS (8 sets, daily range): BP systolic 113–151; BP diastolic 67–86; PULSE 78–100; RESP 16–20; TEMP 97.3–98.1; O2SAT 97–100
[2023-12-09 06:50] LABS: Chloride 107 mmol/L (98-107); Potassium 3.9 mmol/L (3.5-5.1); Sodium 141 mmol/L (136-145)
[2023-12-09 06:51] LABS: Anion Gap 6 (5-15); Calcium 8.7 mg/dL (8.5-10.1); Carbon Dioxide 28 mmol/L (20-30)
[2023-12-09 06:56] LABS: BUN/Creatinine Ratio 6.5 (10.0-20.0); Blood Urea Nitrogen 6 mg/dL (9-23); Glucose 169 mg/dL (74-106)
[2023-12-09 07:14] LABS: Magnesium 1.4 mg/dL (1.6-2.6)
[2023-12-09] MEDS: MAGNESIUM SULFATE 1GM/100ML 100 ML IV SCH (11:24)
[2023-12-10] VITALS (7 sets, daily range): BP systolic 94–135; BP diastolic 61–75; PULSE 70–152; RESP 16–20; TEMP 97.5–98.1; O2SAT 97–98
[2023-12-10 06:40] LABS: Basophils # (auto) 0 10 ^3/uL (0-0.2); Eosinophils # (auto) 0.2 10 ^3/uL (0-0.8); Lymphocytes # (auto) 0.4 10 ^3/uL (0.4-5.4); Monocytes # (auto) 0.5 10 ^3/uL (0-1.3); Neutrophils # (auto) 5.4 10 ^3/uL (1.6-8.6); Nucleated Red Blood Cells % 0.1 %; Red Blood Cells 2.75 10^6/uL (4.5-5.90); White Blood Cell 6.6 10^3/uL (4.4-10.8)
[2023-12-10 06:42] LABS: Basophils % (auto) 0.5 % (0.0-2.0); Eosinophils % (auto) 3.3 % (0.0-7.0); Hematocrit 24.1 % (41.0-53.0); Hemoglobin 7.9 g/dL (13.5-17.5); Mean Corpuscular Hemoglobin 28.9 pg (28.0-32.0); Mean Corpuscular Hgb Conc. 32.9 g/dL (32.0-36.0); Mean Corpuscular Volume 87.9 fL (80.0-100.0); Monocytes % (auto) 7.7 % (0.0-12.0); Neutrophils % (auto) 82.5 % (37.0-80.0); Red Cell Distribution Width 16.8 % (11.8-14.3)
[2023-12-10 06:57] LABS: Alanine Aminotransferase 34 U/L (7-40); Alkaline Phosphatase 108 U/L (46-116); Anion Gap 5 (5-15); BUN/Creatinine Ratio 6.6 (10.0-20.0); Blood Urea Nitrogen 6 mg/dL (9-23); Calcium 8.7 mg/dL (8.5-10.1); Carbon Dioxide 29 mmol/L (20-30); Chloride 107 mmol/L (98-107); Glucose 171 mg/dL (74-106); Magnesium 1.8 mg/dL (1.6-2.6); Potassium 3.6 mmol/L (3.5-5.1); Sodium 141 mmol/L (136-145)
[2023-12-10 06:58] LABS: Albumin 3.7 g/dL (3.2-4.8); Bilirubin, Total < 0.2 mg/dL (0.2-1.0); Total Protein 6.5 g/dL (5.7-8.2)
[2023-12-10 07:39] LABS: Aspartate Aminotransferase 23 U/L (13-40)
[2023-12-10] MEDS ORDERED: AMIO200T33 PO (10:33)
== END 2023-12-10 14:00 | disposition home or self-care (01) | DRG 308 ==
LOC: EDBD 06:39 → ER 06:39 → OVERFLOW 10:33 → TELE-CENTR 23:06
PROVIDERS: ADMIT Nurse Practitioner Family; ATTEND Internal Medicine Geriatric Medicine
DX: I48.20 Chronic atrial fibrillation, unspecified (principal); I50.23 Acute on chronic systolic (congestive) heart failure; N17.9 Acute kidney failure, unspecified; I11.0 Hypertensive heart disease with heart failure; E78.5 Hyperlipidemia, unspecified; D64.9 Anemia, unspecified; D72.829 Elevated white blood cell count, unspecified; G90.8 Other disorders of autonomic nervous system; E78.2 Mixed hyperlipidemia; E86.0 Dehydration; E87.6 Hypokalemia; I25.10 Atherosclerotic heart disease of native coronary artery without angina pectoris; Z79.01 Long term (current) use of anticoagulants; Z79.899 Other long term (current) drug therapy; Z85.46 Personal history of malignant neoplasm of prostate; Z95.1 Presence of aortocoronary bypass graft; Z88.8 Allergy status to other drugs, medicaments and biological substances; I25.2 Old myocardial infarction
CPT/HCPCS: 36415; 70450; 71045; 78582; 80048; 80053; 80162; 80307; 81001; 82962; 83036; 83735; 84100; 84443; 84484; 85025; 85379; 85610; 93005; 93306; 96361; 96374; 96375; 97163; 99291; C9113; G0378; J1815; J2405

== ENCOUNTER 2024-11-28 07:12 | Inpatient (IN) | payer OTHER, MEDICARE ==
[~2024-11-28] VITALS: Ht 167.6 cm; Wt 90.0 kg
[~2024-11-28 07:12] MED LIST changes: +AMIO200T33 PO; -APIX2.5T PO; -DIGO1TAB48 PO; -DILT-29 PO; -DILT120C12 PO; -HYDROIN8 EX; -INSLANTI SC; -METF-372 PO; -PANT1INJ3 PO; -TAMS-35 PO; -TAMS0.4C36 PO; +TAMS0.4C39 PO
--- NOTE | 2024-11-28 08:12 | ED.PDOC ---
SOB-HPI HPI Comments 79 year old male JOSH presents to the ED with chief complaint of SOB. Patient reports that he has been experiencing some SOB with associated leg swelling since this morning along with a problem happening to his Baker Catheter. Patient relays that he felt a pop in it and soon after started to experience abdominal pain with associated scrotal pain and nausea. Patient was noted to have a BG of 405 upon arrival in the ED. Patient denies any chest pain, dizziness, dysuria, vomiting, diarrhea, or cough. Chief Complaint: Shortness of Breath Time Seen by MD: 08:08 Primary Care Provider: DR MORENO Rizvi Reviewed notes: Nurses Notes, Peoplesoft Consultant Notes, Medications, Allergies Information Source: Patient, Emergency Med Personnel Mode of Arrival: EMS Severity: Moderate Timing: Hours Duration: Since onset Context: At Rest PE Risk Factors: None History of: None Prehospital treatment: Oxygen Modifying Factors: Nothing Past Medical History PAST MEDICAL HISTORY: AFIB, CHF, DM, High Lipids, HTN, [place] Surgical History: CABG Family History Family History: Unobtainable Social History Smoker: Chew Alcohol: Denies ETOH Use Drugs: Denies Drug Use Lives In: Home Constitutional: denies: chills, diaphoresis, fatigue, fever, malaise, sweats, weakness, others EENTM: denies: blurred vision, double vision, ear bleeding, ear discharge, ear drainage, ear pain, ear ringing, eye pain, eye redness, hearing loss, mouth pain, mouth swelling, nasal discharge, nose bleeding, nose congestion, nose pain, photophobia, tearing, throat pain, throat swelling, voice changes, others Respiratory: reports: shortness of breath; denies: cough, hemoptysis, orthopnea, SOB at rest, SOB with excertion, stridor, wheezing, others Cardiovascular: reports: edema; denies: chest pain, dizzy spells, diaphoresis, Dyspnea on exertion, irregular heart beat, left arm pain, lightheadedness, palpitations, PND, syncope, others Gastrointestinal: reports: abdominal pain, nausea; denies: abdomen distended, blood streaked bowels, constipated, diarrhea, dysphagia, difficulty swallowing, hematemesis, melena, poor appetite, poor fluid intake, rectal bleeding, rectal pain, vomiting, others Genitourinary: reports: testicle pain; denies: burning, dysuria, flank pain, frequency, hematuria, incontinence, penile discharge, penile sore, pain, testicle swelling, urgency, others Neurological: denies: dizziness, fainting, headache, left sided numbness, left sided weakness, numbness, paresthesia, pre-existing deficit, right sided numbness, right sided weakness, seizure, speech problems, tingling, tremors, weakness, others Musculoskeletal: denies: back pain, gout, joint pain, joint swelling, muscle pain, muscle stiffness, neck pain, others Integumetry: denies: bruises, change in color, change in hair/nails, dryness, laceration, lesions, lumps, rash, wounds, others Allergic/Immunocompromised: denies: Difficulty Healing, Frequent Infections, Hives, Itching, others Hematologic/Lymphatic: denies: anemia, blood clots, easy bleeding, easy bruising, swollen glands, others Endocrine: denies: excessive hunger, excessive sweating, excessive thirst, excessive urination, flushing, intolerance to cold, intolerance to heat, unexplained weight gain, unexplained weight loss, others Psychiatric: denies: anxiety, bipolar disorder, depression, hopeless, panic disorder, schizophrenia, sleepless, suicidal, others All Other Systems: Reviewed and Negative Physical Exam General Appearance: No Apparent Distress, Normal HEENT: Normal ENT Inspection, Pharynx Normal, TMs Normal Neck: Full Range of Motion, Non-Tender, Normal, Normal Inspection Respiratory: Chest Non-Tender, Lungs Clear, No Accessory Muscle Use, No Respi ratory Distress, Normal Breath Sounds, Other (Tachypneic) Cardiovascular: No Edema, No JVD, No Murmur, No Gallop, Normal Peripheral Pulses, Tachycardia Breast Exam: Deferred Gastrointestinal: No Organomegaly, Non Tender, No Pulsatile Mass, Normal Bowel Sounds, Soft Genitalia: Deferred Pelvic: Deferred Rectal: Deferred Extremities: No calf tenderness, Normal capillary refill, Normal inspection, Normal range of motion, Non-tender, No pedal edema Musculoskeletal : Apperance: Normal Neurologic: Alert, cigarette machine filler II-XII nml as Tested, No Motor Deficits, Normal Affect, Normal Mood, No Sensory Deficits Cerebellar Function: Normal Reflexes: Normal Skin: Dry, Pallor, Warm Lymphatic: No Adenopathy Was a procedure done? Was a procedure done?: No Differential Dx Differential Diagnosis: Asthma, CHF, Pneumonia, Sinusitis, URI X-Ray, Labs, Meds, VS Vital Signs Date Time Temp Pulse Resp B/P (MAP) Pulse Ox O2 Delivery O2 Flow Rate FiO2 11/28/24 10:38 98.0 109 34 144/65 (91) 98 98.0 11/28/24 08:38 95 Room Air* 0 21 11/28/24 08:38 107 35 183/89 (120) 97 11/28/24 08:04 103 11/28/24 07:20 102 11/28/24 07:19 98.9 98 24 146/100 (115) 99 98.9 11/28/24 07:19 98 24 99 Nasal Cannula 2.0 Lab Test 11/28/24 10:00 11/28/24 09:20 11/28/24 09:07 11/28/24 08:07 Range/Units Lactic Acid Level 3.5 *H 5.4 *H 0.4-2.0 mmol/L Troponin I High Sensitivity 33 32 </=54 ng/L Urine Color Colorless Yellow Urine Clarity Turbid H Clear Urine pH 5.0 5.0-9.0 Urine Specific [place] 1.011 1.001-1.035 Urine Protein 1+ H Negative Urine Ketones Negative Negative Urine Blood 3+ H Negative /uL Urine Nitrite Negative Negative Urine Bilirubin Negative Negative Urine Urobilinogen Normal Negative mg/dL Urine Leukocyte Esterase 3+ Negative /uL Urine RBC 243 0 - 3 /hpf Urine Microscopic WBC 127 H 0-3 /HPF Urine Squamous Epithelial Cells None seen <5 /hpf Urine Bacteria Few H None Seen /hpf Urine Glucose 4+ H Normal mg/dL White Blood Count 20.7 H 4.4-10.8 10^3/uL Red Blood Count 3.68 L 4.5-5.90 10^6/uL Hemoglobin 10.1 L 13.5-17.5 g/dL Hematocrit 30.9 L 41.0-53.0 % Mean Corpuscular Volume 83.8 80.0-100.0 fL Mean Corpuscular Hemoglobin 27.5 L 28.0-32.0 pg Mean Corpuscular Hemoglobin Concent 32.8 32.0-36.0 g/dL Red Cell Distribution Width 17.3 H 11.8-14.3 % Platelet Count 270 140-450 10^3/uL Mean Platelet Volume 6.7 L 6.9-10.8 fL Neutrophils (%) (Auto) 94.4 H 37.0-80.0 % Lymphocytes (%) (Auto) 1.1 L 10.0-50.0 % Monocytes (%) (Auto) 4.2 0.0-12.0 % Eosinophils (%) (Auto) 0.0 0.0-7.0 % Basophils (%) (Auto) 0.3 0.0-2.0 % Neutrophils # (Auto) 19.6 H 1.6-8.6 10 ^3/uL Lymphocytes # (Auto) 0.2 L 0.4-5.4 10 ^3/uL Monocytes # (Auto) 0.9 0-1.3 10 ^3/uL Eosinophils # (Auto) 0 0-0.8 10 ^3/uL Basophils # (Auto) 0.1 0-0.2 10 ^3/uL Nucleated Red Blood Cells 0.0 % Sodium Level 129 L 136-145 mmol/L Potassium Level 4.0 3.5-5.1 mmol/L Chloride Level 93 L 98-107 mmol/L Carbon Dioxide Level 19 L 20-31 mmol/L Anion Gap 17 H 5-15 Blood Urea Nitrogen 16 9-23 mg/dL Creatinine 1.83 H 0.700-1.30 mg/dL Glomerular Filtration Rate Calc 37 >90 mL/min BUN/Creatinine Ratio 8.7 L 10.0-20.0 Serum Glucose 452 *H 74-106 mg/dL Calcium Level 10.4 8.7-10.4 mg/dL B-Type Natriuretic Peptide 256.09 0-100 pg/mL Test 11/28/24 07:47 11/28/24 07:46 Range/Units POC Glucose 405 *H 408 *H 70-106 mg/dl Current Medications Medications (Trade) Dose Ordered Sig/Mustapha Route Start Time Stop Time Status Last Admin Sodium Chloride 3,000 ml @ 1,000 mls/hr Q3H ONCE IV 11/28/24 09:00 11/28/24 11:59 11/28/24 09:17 Cefepime HCl 50 ml @ 50 mls/hr ONCE ONCE IV 11/28/24 09:00 11/28/24 09:59 DC 11/28/24 09:18 Vancomycin HCl 200 ml @ 200 mls/hr ONCE ONCE IV 11/28/24 09:00 11/28/24 09:59 DC 11/28/24 09:42 Time of 1ST Reevaluation: 09:08 Reevaluation 1ST: Unchanged Patient Education/Counseling: Diagnosis, Treatment Family Education/Counseling: No Family Present Additional Information The following tests were ordered, and results were reviewed by me: Chest XR, EKG, Troponin, Blood Culture, Lactic, UA, CBC, BMP, BNP Additional Information was gathered from interviewing the following independent historians: None I reviewed and agreed with the following test results read by other providers: Chest XR I discussed treatment and results with medical personnel and: patient Comprehensive systems review obtained and negative except for what is stated in the HPI. Departure 1 Departure Time of Disposition: 10:49 (Patient with concern for sepsis. Patient empirically covered with antibiotics fluids and we will admit patient for further workup) Impression: Primary Impression: Sepsis Qualified Codes: A41.9 - Sepsis, unspecified organism; R65.21 - Severe sepsis with septic shock; J96.01 - Acute respiratory failure with hypoxia Additional Impressions: Shortness of breath Complicated UTI (urinary tract infection) Disposition: ADMITTED INPATIENT Admit to: Tele Condition: Guarded Critical Care Note Critical Care Time?: No Critical care comment: Sepsis Authorized and Performed by: Cain Rg MD Total critical care time: Approximately 39 minutes Due to a high probability of clinically significant, life threatening deterioration, the patient required my highest level of preparedness to intervene emergently and I personally spent this critical care time directly and personally managing the patient. This critical care time included obtaining a history; examining the patient; pulse oximetry; ordering and review of studies; arranging urgent treatment with development of a management plan; evaluation of patient's response to treatment; frequent reassessment; and, discussions with other providers. This critical care time was performed to assess and manage the high probability of imminent, life-threatening deterioration that could result in multi-organ failure. It was exclusive of separately billable procedures and treating other patients and teaching time. Please see my other sections and the rest of the note for further information on patient assessment and treatment. Stability Stability form required: No Heart Score Heart Score: Heart Score Response (Comments) Value History N/A 0 EKG N/A 0 Age N/A 0 Risk Factors N/A 0 Troponin N/A 0 Total 0 I personally scribed for CAIN RG MD ([email or web address]) on 11/28/24 at 08:12. Electronically submitted by Herberth Fortune ([email or web address]). CAIN RG MD November 28, 2024 08:12
[2024-11-28 08:22] LABS: Basophils # (auto) 0.1 10 ^3/uL (0-0.2); Basophils % (auto) 0.3 % (0.0-2.0); Eosinophils # (auto) 0 10 ^3/uL (0-0.8); Hematocrit 30.9 % (41.0-53.0); Hemoglobin 10.1 g/dL (13.5-17.5); Lymphocytes # (auto) 0.2 10 ^3/uL (0.4-5.4); Lymphocytes % (auto) 1.1 % (10.0-50.0); Mean Corpuscular Hemoglobin 27.5 pg (28.0-32.0); Mean Corpuscular Hgb Conc. 32.8 g/dL (32.0-36.0); Mean Corpuscular Volume 83.8 fL (80.0-100.0); Monocytes # (auto) 0.9 10 ^3/uL (0-1.3); Monocytes % (auto) 4.2 % (0.0-12.0); Neutrophils # (auto) 19.6 10 ^3/uL (1.6-8.6); Neutrophils % (auto) 94.4 % (37.0-80.0); Platelet Count (auto) 270 10^3/uL (140-450); Red Blood Cells 3.68 10^6/uL (4.5-5.90); Red Cell Distribution Width 17.3 % (11.8-14.3); White Blood Cell 20.7 10^3/uL (4.4-10.8)
--- NOTE | 2024-11-28 08:33 | DVH ---
CHEST RADIOGRAPH Indication: sob Technique: Single frontal view of the chest was obtained COMPARISON: XY CHEST PORTABLE on DOS: 12/06/23, CHEST PORTABLE on DOS: 07/04/22, CXRP on DOS: 07/04/22 FINDINGS: Lines and Tubes: Median sternotomy Lungs: Clear Pleura: No effusion. No pneumothorax. Cardiomediastinal contours: Unremarkable Bones: Unremarkable IMPRESSION: No acute disease.
[2024-11-28 08:35] LABS: Anion Gap 17 (5-15)
[2024-11-28 08:38] VITALS: O2SAT 95
[2024-11-28 08:40] LABS: BUN/Creatinine Ratio 8.7 (10.0-20.0); Blood Urea Nitrogen 16 mg/dL (9-23)
[2024-11-28 08:44] LABS: Calcium 10.4 mg/dL (8.7-10.4); Carbon Dioxide 19 mmol/L (20-31); Chloride 93 mmol/L (98-107); Sodium 129 mmol/L (136-145)
[2024-11-28 08:46] LABS: Glucose 452 mg/dL (74-106); Lactic Acid w/Reflex 5.4 mmol/L (0.4-2.0)
[2024-11-28] MEDS: SODIUM CHLORIDE 0.9% 3,000 ML IV ONE (09:17)
[2024-11-28] MEDS: CEFEPIME 2GM/50ML NS 50 ML IV ONE (09:18)
[2024-11-28 09:25] LABS: Urine Bacteria FEW /hpf (None Seen); Urine Blood 3+ /uL (Negative); Urine Clarity Turbid (Clear); Urine Color Colorless (Yellow); Urine Protein, UAD 1+ (Negative); Urine Specific Gravity 1.011 (1.001-1.035); Urine Squamous Epithelial Cell None Seen /hpf (<5); Urine Urobilinogen Normal (Negative); Urine WBC 127 /HPF (0-3)
[2024-11-28] MEDS: VANCOMYCIN 1GM/200ML PM 200 ML IV ONE (09:42)
[2024-11-28] MEDS ORDERED: ACETAMINOPHEN 325 MG TAB PO PRN (12:15)
[2024-11-28] MEDS ORDERED: MORPHINE SULFATE INJ 2 MG/ml SYRG IV PRN (12:15)
[2024-11-28] MEDS ORDERED: DOCUSATE SOD 100 MG CAP PO PRN (12:15)
[2024-11-28] MEDS ORDERED: ONDANSETRON HCL 4 MG/2 ML VIAL IV PRN (12:15)
[2024-11-28] MEDS ORDERED: DEXTROSE (50%) 50ML SYRG IV PRN (12:15)
[2024-11-28] MEDS ORDERED: VANCOMYCIN PER PHARMACY 0 MG IV SCH (12:30)
--- NOTE | 2024-11-28 12:41 | DVHHP2 ---
History of Present Illness Reason for Visit: Bdominal pain History of Present Illness Victoriano Kendrick is a 79-year-old male with past medical history of prostate cancer, atrial fibrillation, CHF, hypertension, hyperlipidemia, diabetes, and Mi, who came in due to penial pain. Patient states he had just gotten out of the shower, was putting on his underwear when he felt a pull and then a pop with his Baker catheter. He states he then had a burning in his penis and there was no urine draining from the catheter, so he came to the hospital. The ER changed out the catheter and drained 700ml yellow urine. The ER nurses states he did have about 50 ml of hematuria at first, but it cleared up to yellow quickly. Patient states he has chronic shortness of breath and bilateral lower extremity edema. He states some days are better than others. Also that he tried to get home oxygen, but he did not qualify. Cardiovascular: AFIB, CHF, HTN, ND, hyperipidemia Endocrine: Diabetes Past Surgical History: CABG (2006) Smoke: No ALCOHOL: none Drugs: None Lives: with Family Domestic Violence: Neg Review of Systems Constitutional: No: Fever, Chills, Sweats, Weakness, Malaise, Other Eyes: No: Pain, Vision change, Conjunctivae inflammation, Eyelid inflammation, Other, Redness ENT: No: Ear pain, Ear discharge, Nose pain, Nose discharge, Nose congestion, Mouth pain, Mouth swelling, Throat pain, Throat swelling, Other Respiratory: No: Cough, Dry, Shortness of breath, SOB with excertion, Wheezing, Hemoptysis, Pleuritic Pain, Sputum, Wheezing, Other Cardiovascular: No: Chest Pain, Palpitations, Orthopnea, Paroxysmal Noc. Dyspnea, Edema, Lt Headedness, Other Gastrointestinal: No: Nausea, Vomiting, Abdominal Pain, Diarrhea, Constipation, Melena, Hematochezia, Other Genitourinary: No Dysuria, No Frequency, No Incontinence, No Hematuria; Retention, Other (penial pain) Musculoskeletal: No: other, neck pain, shoulder pain, arm pain, back pain, hand pain, leg pain, foot pain Skin: No: Rash, Lesions, Jaundice, Bruising, Other Neurological: No: Weakness, Numbness, Incoordination, Change in speech, Confusion, Seizures, Other Allergies: Coded Allergies: Atorvastatin (Unverified Allergy, Unknown, 03/11/15) Clindamycin (Verified Allergy, Unknown, 07/05/22) Niacin (Unverified Allergy, Unknown, 03/11/15) Medications Current Medications Medications Dose Ordered Sig/Mustapha Route Start Time Stop Time Status Last Admin Dose Admin Acetaminophen/ Hydrocodone Bitart 1 tab Q4HP PRN PO 11/28/24 12:15 UNV Ondansetron HCl 4 mg Q4HP PRN IV 11/28/24 12:15 UNV Docusate Sodium 100 mg BIDPRN PRN PO 11/28/24 12:15 UNV Enoxaparin Sodium 40 mg DAILY SC 11/29/24 10:00 UNV Acetaminophen 650 mg Q6HP PRN PO 11/28/24 12:15 UNV Morphine Sulfate 2 mg Q4HPRN PRN IV 11/28/24 12:15 UNV Nitroglycerin 0.4 mg Q5MINP PRN SL 11/28/24 12:15 UNV Morphine Sulfate 2 mg Q30M PRN IV 11/28/24 12:15 UNV Diagnostic Test (Pha) 1 strip ACHS 11/28/24 17:00 UNV Insulin Human Regular HS SC 11/28/24 22:00 UNV Insulin Human Regular AC SC 11/28/24 17:00 UNV Dextrose 50 ml UD PRN IV 11/28/24 12:15 UNV Amiodarone HCl 200 mg DAILY PO 11/29/24 10:00 UNV Apixaban 5 mg BID PO 11/28/24 22:00 UNV Tamsulosin HCl 0.4 mg HS PO 11/28/24 22:00 UNV Patient Own Medication 1 tab DAILY PO 11/29/24 10:00 UNV Exam Vital Signs Vital Signs Date Time Temp Pulse Resp B/P (MAP) Pulse Ox O2 Delivery O2 Flow Rate FiO2 11/28/24 10:38 98.0 109 34 144/65 (91) 98 98.0 11/28/24 08:38 Room Air* 0 21 General Appearance: Alert, Oriented X3, Cooperative, moderate distress HEENT: Atraumatic, PERRLA, Other (Mucous Mem dry) Respiratory: Clear to auscultation, Normal air movement Cardiovascular: Other (atrail fibrillation) Abdominal: Normal bowel sounds, Soft, No tenderness Extremities: No clubbing, No cyanosis, Other (bilateral lower extremity edema) Skin: No rashes, No breakdown, No significant lesion Neuro: Normal speech, Other (weakness) Psych/Mental Status: Mental status NL, Mood NL Labs/Xrays Labs Test 11/28/24 10:53 11/28/24 10:00 11/28/24 09:07 11/28/24 08:07 Range/Units Troponin I High Sensitivity 42 </=54 ng/L Lactic Acid Level 3.5 *H 0.4-2.0 mmol/L Urine Color Colorless Yellow Urine Clarity Turbid H Clear Urine pH 5.0 5.0-9.0 Urine Specific [place] 1.011 1.001-1.035 Urine Protein 1+ H Negative Urine Ketones Negative Negative Urine Blood 3+ H Negative /uL Urine Nitrite Negative Negative Urine Bilirubin Negative Negative Urine Urobilinogen Normal Negative mg/dL Urine Leukocyte Esterase 3+ Negative /uL Urine RBC 243 0 - 3 /hpf Urine Microscopic WBC 127 H 0-3 /HPF Urine Squamous Epithelial Cells None seen <5 /hpf Urine Bacteria Few H None Seen /hpf Urine Glucose 4+ H Normal mg/dL White Blood Count 20.7 H 4.4-10.8 10^3/uL Red Blood Count 3.68 L 4.5-5.90 10^6/uL Hemoglobin 10.1 L 13.5-17.5 g/dL Hematocrit 30.9 L 41.0-53.0 % Mean Corpuscular Volume 83.8 80.0-100.0 fL Mean Corpuscular Hemoglobin 27.5 L 28.0-32.0 pg Mean Corpuscular Hemoglobin Concent 32.8 32.0-36.0 g/dL Red Cell Distribution Width 17.3 H 11.8-14.3 % Platelet Count 270 140-450 10^3/uL Mean Platelet Volume 6.7 L 6.9-10.8 fL Neutrophils (%) (Auto) 94.4 H 37.0-80.0 % Lymphocytes (%) (Auto) 1.1 L 10.0-50.0 % Monocytes (%) (Auto) 4.2 0.0-12.0 % Eosinophils (%) (Auto) 0.0 0.0-7.0 % Basophils (%) (Auto) 0.3 0.0-2.0 % Neutrophils # (Auto) 19.6 H 1.6-8.6 10 ^3/uL Lymphocytes # (Auto) 0.2 L 0.4-5.4 10 ^3/uL Monocytes # (Auto) 0.9 0-1.3 10 ^3/uL Eosinophils # (Auto) 0 0-0.8 10 ^3/uL Basophils # (Auto) 0.1 0-0.2 10 ^3/uL Nucleated Red Blood Cells 0.0 % Sodium Level 129 L 136-145 mmol/L Potassium Level 4.0 3.5-5.1 mmol/L Chloride Level 93 L 98-107 mmol/L Carbon Dioxide Level 19 L 20-31 mmol/L Anion Gap 17 H 5-15 Blood Urea Nitrogen 16 9-23 mg/dL Creatinine 1.83 H 0.700-1.30 mg/dL Glomerular Filtration Rate Calc 37 >90 mL/min BUN/Creatinine Ratio 8.7 L 10.0-20.0 Serum Glucose 452 *H 74-106 mg/dL Calcium Level 10.4 8.7-10.4 mg/dL B-Type Natriuretic Peptide 256.09 0-100 pg/mL Test 11/28/24 07:47 Range/Units POC Glucose 405 *H 70-106 mg/dl CHEST RADIOGRAPH FINDINGS: Lines and Tubes: Median sternotomy Lungs: Clear Pleura: No effusion. No pneumothorax. Cardiomediastinal contours: Unremarkable Bones: Unremarkable IMPRESSION: No acute disease. Assessment/Plan Assessment/Plan Assessment: Sepsis, Complicated UTI (urinary tract infection), Lactic Acidosis, Leukocytosis, Hyperglycemia, Acute kidney injury, Atrial fibrillation, Diabetes, CHF, Plan: Admit to Tele, IV hydration, IV antibiotics, Accu checks Q AC&HS with sliding scale, Blood cultures, Urine cultures, COVID swab, Influenza A&B swab, Asked to bring in list of home medications so they can be reconciled, Plan discussed with: Patient My Orders Orders - MARIE POLLACK Procedure Category Date Status Time Urine Bacterial AJ 11/28/24 In Process Culture 11:01 Admit ADMIT 11/28/24 Transmitted 12:13 Code Status CODE 11/28/24 Transmitted 12:13 2 Gm Sodium Diet DIET 11/28/24 Transmitted Lunch Hydrocodone-Acet PHA 11/28/24 Logged 5/325mg Tab ([place] 12:15 Ondansetron Hcl PHA 11/28/24 Logged (Zofran) 12:15 Docusate Sodium PHA 11/28/24 Logged Capsule (Colace 12:15 Enoxaparin Sodium PHA 11/29/24 Logged (Lovenox) 10:00 Complete Blood Count LAB 11/29/24 Verified 04:00 Comprehensive LAB 11/29/24 Verified Metabolic Panel 04:00 Echo 2d Mode Cardiac US 11/28/24 Logged DOP 12:13 Condition: Critical ABDIAS 11/28/24 In Process 12:13 Acetaminophen Tablet PHA 11/28/24 Logged (Tylenol Tablet) 12:15 Morphine Sulfate PHA 11/28/24 Logged Injection 12:15 Nitroglycerin PHA 11/28/24 Logged Sublingual (Ntrostat 12:15 Morphine Sulfate PHA 11/28/24 Logged Injection 12:15 Stat Ekg For Chest [facility] 11/28/24 In Process Pain 12:13 Notify Of Changes [facility] 11/28/24 In Process From Base 12:13 Radiation Control Worker For [facility] 11/28/24 In Process 24 Hours 12:13 Emergency Dysrhythmia [facility] 11/28/24 In Process Protocol 12:13 Rhythm Strips Once [facility] 11/28/24 In Process Every Shift 12:13 Oxygen By Nasal RT 11/28/24 Transmitted Cannula 12:13 Glucose Blood PHA 11/28/24 Logged (Accu-Chek Comfort 17:00 Insulin R (Human) PHA 11/28/24 Logged (Insulin R) 22:00 Insulin R (Human) PHA 11/28/24 Logged (Insulin R) 17:00 Dextrose 50% Syringe PHA 11/28/24 Logged 12:15 Insulin R (Human) PHA 11/28/24 Logged (Insulin R) 12:15 Amiodarone Tablet PHA 11/29/24 Logged (Cordarone Tablet) 10:00 Apixaban (Eliquis) PHA 11/28/24 Logged 22:00 Tamsulosin PHA 11/28/24 Logged Hydrochloride (Flomax) 22:00 (Nf) Rosuvastatin PHA 11/29/24 Logged Calcium (Crestor) 10:00 Date of Service: November 28, 2024 Billing Provider: MARIE POLLACK Common Visit Codes: [id number] INP/OBS CARE (HIGH) MARIE POLLACK November 28, 2024 12:41
[2024-11-28] MEDS: InsuLIN REG 1unit/0.01ml Soln (100units/ml) IV ONE (12:53)
[2024-11-28] MEDS: LACTATED RINGER'S 1,000 ML IV ONE (15:36)
[2024-11-28 15:38] LABS: COVID19 ANTIGEN SOFIA FIA NEGATIVE (NEGATIVE); Rapid Influenza A Negative (Negative); Rapid Influenza B Negative (Negative)
[2024-11-28 17:05] LABS: Lactic Acid w/Reflex 2.4 mmol/L (0.4-2.0)
[2024-11-28] MEDS: ACCU-CHEK COMFORT CURVE STRIP VI SCH (17:09)
[2024-11-28] MEDS: InsuLIN REG 1unit/0.01ml Soln (100units/ml) SC SCH ×2 (17:13→22:23)
[2024-11-28 17:57] VITALS: PULSE 80; RESP 18; O2SAT 97
--- NOTE | 2024-11-28 19:02 | ECG ---
[facility] Test Date: 2024-11-28 Test Time: 07:18:29 Pat Name: YESENIA BARRAZA Department: ED Room: 0261 Gender: M Flour Mixer: ANDREA : 1945 Requested By: CAIN RUSSELL Order Number: [id number] Reading MD: Ryan Keating Measurements Intervals [place] Rate: 102 P: 0 ME: 0 QRS: -81 QRSD: 151 T: 54 QT: 398 QTc: 519 Interpretive Statements Atrial flutter RBBB and LAFB Electronically Signed On 11-29-2024 21:13:03 PDT by Ryan Keating Please click the below link to view image of tracing.
[2024-11-28 20:00] VITALS: PULSE 99; RESP 18; O2SAT 97
--- NOTE | 2024-11-28 21:57 | DVHSR ---
APPROVED REPORT EXAM: LIMITED Two-dimensional and M-mode echocardiogram with Doppler and color Doppler. Blood Pressure: 144/65 mmHg INDICATION Sepsis Atrial Flutter LV Function Surgery/Intervention CABG: RISK FACTORS Height: 5' 6", Weight: 180 DIMENSIONS LVDd5.1 (3.8-5.7cm)LA (2D)4.9 (1.9-4.0cm)Aortic Root3.5 (2.0-3.7cm) LVDs4.1 (2.5-4.0cm)LA (MM) (1.9-4.0cm)Aortic Cusp Exc1.6 (1.5-2.0cm) EF (%) 40.0 (55-70%)Rt. Atrium5.5 (1.9-4.0cm)Asc. Aorta cm IVSd0.6 (0.7-1.1cm)RV (D) (1.8-2.4cm) PWd1.0 (0.7-1.1cm) Mitral Valve MitralMitral Stenosis E wave1.10m/sMV Mean GR.mmHg A wave0.60m/sMV Peak GR.mmHg E/A ratio1.82D MVAcm2 Aortic Valve Aortic ValveAortic Stenosis V11.00m/[place] Mean GR.6mmHg V21.50m/[place] Peak GR.9mmHg LVOT Diameter2.3 (1.8-2.4cm)Doppler AVA2.77cm2 Tricuspid Valve TR Velocity3.00m/s [id number] Other Information Quality : Technically LimitedRhythm : Technically limited study due to CABG. Conclusion Normal LV size and systolic function. LVEF estimated at 55-60%. Septal bounce seen. Grade 2 diastolic dysfunction. Dilated RV with impaired systolic function. Moderate biatrial enlargement. Mild MAC. Trace MR. Trace TR. RVSP estimated 37 mmHg + CVP. No pericardial effusion.
[2024-11-28] MEDS: CEFEPIME 2GM/50ML NS 50 ML IV SCH (22:09)
[2024-11-28] MEDS: APIXABAN 5 MG TAB PO SCH (22:10)
[2024-11-28] MEDS: TAMSULOSIN HYDROCHLORIDE 0.4 MG CAP PO SCH (22:10)
[2024-11-29] VITALS (43 sets, daily range): BP systolic 80–129; BP diastolic 52–75; PULSE 79–125; RESP 16–30; TEMP 99.4–99.7; O2SAT 86–100
[2024-11-29 06:17] LABS: Basophils # (auto) 0 10 ^3/uL (0-0.2); Eosinophils # (auto) 0.1 10 ^3/uL (0-0.8); Eosinophils % (auto) 0.5 % (0.0-7.0); Hemoglobin 8.2 g/dL (13.5-17.5)
[2024-11-29 06:21] LABS: Basophils % (auto) 0.2 % (0.0-2.0); Hematocrit 25.1 % (41.0-53.0); Lymphocytes # (auto) 0.4 10 ^3/uL (0.4-5.4); Lymphocytes % (auto) 2.3 % (10.0-50.0); Mean Corpuscular Hemoglobin 27.3 pg (28.0-32.0); Mean Corpuscular Hgb Conc. 32.6 g/dL (32.0-36.0); Mean Corpuscular Volume 83.7 fL (80.0-100.0); Monocytes # (auto) 0.9 10 ^3/uL (0-1.3); Monocytes % (auto) 5.3 % (0.0-12.0); Neutrophils # (auto) 14.6 10 ^3/uL (1.6-8.6); Neutrophils % (auto) 91.7 % (37.0-80.0); Platelet Count (auto) 177 10^3/uL (140-450); Red Cell Distribution Width 17.6 % (11.8-14.3)
[2024-11-29 06:34] LABS: Albumin 3.5 g/dL (3.2-4.8); Alkaline Phosphatase 72 U/L (46-116); Anion Gap 11 (5-15); BUN/Creatinine Ratio 13.1 (10.0-20.0); Bilirubin, Total 0.3 mg/dL (0.2-1.0); Blood Urea Nitrogen 22 mg/dL (9-23); Calcium 9.6 mg/dL (8.7-10.4); Carbon Dioxide 21 mmol/L (20-31); Chloride 103 mmol/L (98-107); Potassium 4.2 mmol/L (3.5-5.1); Total Protein 6.2 g/dL (5.7-8.2)
[2024-11-29 06:38] LABS: Glucose 223 mg/dL (74-106); Sodium 135 mmol/L (136-145)
[2024-11-29 06:39] LABS: Alanine Aminotransferase < 9 U/L (7-40); Aspartate Aminotransferase 10 U/L (13-40)
[2024-11-29] MEDS ORDERED: PNEUMOCOCCAL VACC POLYS 25 MCG/0.5 ML VIAL IM ONE (10:00)
[2024-11-29] MEDS ORDERED: ENOXAPARIN SOD 40 MG/0.4 ML SYRINGE SC SCH (10:00)
[2024-11-29] MEDS: Rosuvastatin Calcium (Crestor) 40 MG TABLET PO SCH (10:00)
[2024-11-29] MEDS: AMIODARONE HCL 200 MG TAB PO SCH (10:02)
[2024-11-29] MEDS ORDERED: VANCOMYCIN 1GM/200ML PM 200 ML IV ONE ×2 (10:15→14:00)
[2024-11-29] MEDS: HYDROcodone-ACET 5/325MG TAB PO PRN (10:39)
--- NOTE | 2024-11-29 11:53 | DVHPN2 ---
Subjective Patient reports having generalized weakness, fevers, shortness of breath. Reviewed: Care Plan, H&P, Labs, Medications Changes from previous H/P or p: No Changes General: Per HPI Eyes: No Pain, No Vision change, No Conjunctivae inflammation, No Eyelid inflammation, No Other, No Redness ENT: No Ear pain, No Ear discharge, No Nose pain, No Nose discharge, No Nose congestion, No Mouth pain, No Mouth swelling, No Throat pain, No Throat swelling, No Other Cardiovascular: No Chest Pain, No Palpitations, No Orthopnea, No Paroxysmal Noc. Dyspnea, No Edema, No Lt Headedness, No Other Respiratory: No Cough, No Dry, No Shortness of breath, No SOB with excertion, No Wheezing, No Hemoptysis, No Pleuritic Pain, No Sputum, No Other Gastrointestinal: No Nausea, No Vomiting, No Abdominal Pain, No Diarrhea, No Constipation, No Melena, No Hematochezia, No Other Genitourinary: No Dysuria, No Frequency, No Incontinence, No Hematuria; R etention, Other (penial pain) Musculoskeletal: No other, No neck pain, No shoulder pain, No arm pain, No back pain, No hand pain, No leg pain, No foot pain Skin: No Rash, No Lesions, No Jaundice, No Bruising, No Other Objective Vitals Vital Signs Date Time Temp Pulse Resp B/P (MAP) Pulse Ox O2 Delivery O2 Flow Rate FiO2 11/29/24 09:00 99.5 79 16 102/66 (78) 97 99.5 11/28/24 20:00 Room Air* 0 21 Intake/Output Intake and Output 11/29/24 07:00 Intake Total 3490 ml Output Total 1500 ml Balance 1990 ml Intake Oral 240 ml IV Total 3250 ml Output Urine Total 1500 ml General Appearance: Alert, Oriented X3, Cooperative HEENT: Atraumatic, PERRLA Lungs: Clear to auscultation, Normal air movement Cardiovascular: Normal S1, Normal S2 Musculoskeletal: Normal sensory function, Normal motor function Skin: Dry, Intact Psych/Mental Status: Mental status NL, Mood NL Medications Current Medications Medications Dose Ordered Sig/Mustapha Route Start Time Stop Time Status Last Admin Dose Admin Acetaminophen/ Hydrocodone Bitart 1 tab Q4HP PRN PO 11/28/24 12:15 11/29/24 10:39 1 TAB Ondansetron HCl 4 mg Q4HP PRN IV 11/28/24 12:15 Docusate Sodium 100 mg BIDPRN PRN PO 11/28/24 12:15 Acetaminophen 650 mg Q6HP PRN PO 11/28/24 12:15 Morphine Sulfate 2 mg Q4HPRN PRN IV 11/28/24 12:15 Nitroglycerin 0.4 mg Q5MINP PRN SL 11/28/24 12:15 Morphine Sulfate 2 mg Q30M PRN IV 11/28/24 12:15 Diagnostic Test (Pha) 1 strip ACHS 11/28/24 17:00 11/29/24 11:34 1 STRIP Insulin Human Regular HS SC 11/28/24 22:00 11/28/24 22:23 4 UNITS Insulin Human Regular AC SC 11/28/24 17:00 11/28/24 22:14 6 UNITS Dextrose 50 ml UD PRN IV 11/28/24 12:15 Amiodarone HCl 200 mg DAILY PO 11/29/24 10:00 11/29/24 10:02 200 MG Apixaban 5 mg BID PO 11/28/24 22:00 11/29/24 10:02 5 MG Tamsulosin HCl 0.4 mg HS PO 11/28/24 22:00 11/28/24 22:10 0.4 MG Patient Own Medication 1 tab DAILY PO 11/29/24 10:00 Vancomycin HCl 0 ml @ 0 mls/hr UD IV 11/28/24 12:30 Cefepime HCl 50 ml @ 12.5 mls/hr Q12HR IV 11/28/24 22:00 11/29/24 10:03 12.5 MLS/HR Laboratory Results Laboratory Tests 11/29/24 05:49 Chemistry Test 11/29/24 05:49 Albumin 3.5 g/dL (3.2-4.8) Calcium Level 9.6 mg/dL (8.7-10.4) Total Protein 6.2 g/dL (5.7-8.2) LFT Test 11/29/24 05:49 Alanine Aminotransferase (ALT) < 9 U/L (7-40) Alkaline Phosphatase 72 U/L (46-116) Aspartate Amino Transferase (AST) 10 U/L (13-40) L Total Bilirubin 0.3 mg/dL (0.2-1.0) Urinalysis Test 11/28/24 09:07 Urine Color Colorless (Yellow) Urine Clarity Turbid (Clear) H Urine pH 5.0 (5.0-9.0) Urine Specific [place] 1.011 (1.001-1.035) Urine Protein 1+ (Negative) H Urine Ketones Negative (Negative) Urine Blood 3+ /uL (Negative) H Urine Nitrite Negative (Negative) Urine Bilirubin Negative (Negative) Urine Urobilinogen Normal mg/dL (Negative) Urine Leukocyte Esterase 3+ /uL (Negative) Urine RBC 243 /hpf (0 - 3) Urine Microscopic WBC 127 /HPF (0-3) H Urine Squamous Epithelial Cells None seen /hpf (<5) Urine Bacteria Few /hpf (None Seen) H Urine Glucose 4+ mg/dL (Normal) H Microbiology Microbiology Date/Time Source Procedure Growth Status 11/28/24 09:07 Urine - Catheterized Urine Culture - Preliminary Resulted 11/28/24 08:07 Blood Blood Culture - Preliminary Resulted Labs and/or images reviewed: Labs reviewed by me, Image(s) reviewed by me Assessment/Plan Assessment/Plan Impression: -sepsis secondary to complicated cystitis -complicated cystitis -history of prostate cancer -acute hypoxic respiratory failure -obesity -atrial fibrillation with rapid ventricular rate -primary hypertension -questionable RV failure, probably secondary to previous CA -hematuria, anemia, pernicious drop in hematocrit -CKD stage IIIB Plan: -CT scan of chest, abdomen, pelvis without contrast -check PSA -stop vancomycin, continue cefepime -blood and urine cultures -start IV hydration -continue rate control with amiodarone -continue anticoagulation with Eliquis. Continue to monitor H&H for worsening anemia -repeat labs in a.m. Total time spent with patient discussing and formulating plan of care: 35 minutes. This medical document was created using an electronic medical record system with [employer] dictation system. Although this document has been carefully reviewed, there may still be some phonetic and typographical errors. These areas are purely typographical due to imperfections of the software programs, and do not reflect any compromise in the patient's medical care. Plan discussed with: Patient, Other (RN) My Orders Orders - JESSICA HINES [employer]ACH[employer] Procedure Category Date Status Time Chest Without Contrast CT 11/29/24 Verified 11:31 Ct Ab Pel Wo Con-No CT 11/29/24 Verified Oral Or Iv 11:31 Psa Total+% Free LAB 11/30/24 Verified 04:00 Vitamin D 25-Hydroxy LAB 11/30/24 Verified D2 + D3 06:00 Vitamin B12 LAB 11/30/24 Verified 06:00 Basic Metabolic Panel LAB 11/30/24 Verified 04:00 Complete Blood Count LAB 11/30/24 Verified 04:00 NS PHA 11/29/24 Verified 11:45 Date of Service: November 29, 2024 Billing Provider: JESSICA HINES NP Common Visit Codes: [id number] INP/OBS CARE(HIGH) JESSICA HINES NP November 29, 2024 11:53
[2024-11-29] MEDS: dilTIAZem 25 MG/5 ML VIAL IV ONE (12:50)
[2024-11-29] MEDS: METOPROLOL TARTRATE 1MG/1ML-5ML VIAL IV ONE (12:54)
[2024-11-29] MEDS ORDERED: AMIODARONE BOLUS KIT 100 ML IV ONE (13:00)
[2024-11-29] MEDS: PHENYLEPHRINE IV 250 ML IV ONE (13:06)
[2024-11-29] MEDS: AMIODARONE BOLUS KIT 100 ML IV ONE ×2 (13:06→13:13)
[2024-11-29] MEDS ORDERED: AMIODARONE 360mg/200mL PREMIX 200 ML IV ONE (13:15)
[2024-11-29] MEDS: AMIODARONE 360mg/200mL PREMIX 200 ML IV ONE ×2 (13:18→13:43)
--- NOTE | 2024-11-29 13:37 | RESUS ---
CODE ASSIST ASSESSSMENT Initial Information Code Assist Date: November 29, 2024 Code Assist Time: 12:39 Location of Arrest: [facility] Room # 251b Provider Name WAX MOLDER Damian Santiago Time Notified: 12:39 Crash Cart Opened and Supplies: No Situation Staff concerned/worried, speci: HR >130, RR >28 Situation comment: Patient noted to have rhthym change on tele monitor displaying HR 145-150. EKG confirmed AFib RVR. Patient is awake and answering questions appropriately. Patient reports increased SOB and initial dizziness that has now subsided. Assessment Temperature (Fahrenheit): 98.9 Blood Pressure Systolic: 103 Blood Pressure Diastolic: 65 Respiratory Rate: 28 O2 Sat by Pulse Oximetry: 98 Bedside Blood Glucose: 241 Recommendations/Interventions Procedures: Accu check, CMP, CBC, EKG, Cardiac Monitoring, O2 Mask/NC Outcome Outcome: Transfer to ICU Follow up Report Follow up Report Verbal Orders received for ICU upgrade Start IV amio per protocol with bolus Start IV Phenylepherine per protocol Team Members Team Members WILBUR Haro RN Manager Jess Castellano RN Reanna Padilla November 29, 2024 13:37
[2024-11-29] MEDS: PHENYLEPHRINE IV 250 ML IV SCH (13:41)
[2024-11-29] MEDS: SODIUM CHLORIDE 0.9% 500 ML IV ONE (13:43)
--- NOTE | 2024-11-29 15:18 | DVH ---
Indication: Complicated cystitis, hematuria, prostate ca Technique: CT axial images of the chest, abdomen and pelvis are obtained without contrast. Coronal an d sagittal reformats were obtained. Radiation Dose Information: CTDI volume is 15.41 mGy. Dose-length product is 1048.54 mGy*cm Comparison: None FINDINGS: There is limited interpretation of the chest, abdomen and pelvis without administration of intravenou s contrast. Trachea patent. No pneumothorax. Bilateral atelectasis and scarring. Developing lower lobe airspace consolidation, cbgh-hymgfgr-xrab-right. Tiny bilateral pleural effusions, vmux-qoaihdi-gpwk-right. Heart normal in size. Aortic atherosclerotic disease. No supraclavicular or axillary lymphadenopathy. The adrenal glands, spleen and pancreas are unremarkable in shape. Liver unremarkable in shape. No CT evidence for cholelithiasis. The kidneys demonstrate no hydronephrosis. Nonobstructing left renal calculus measuring 3 mm. Moderate size hiatal hernia. Stomach partially distended. Small bowel loops are moderately distende d. Moderate volume stool in the colon. Normal appendix. Abdominal aortic atherosclerotic disease. Bladder wall thickening with surrounding stranding. Bladde r decompressed by Baker catheter. There is air in the anterior and superior aspect of the bladder wal l. Mild presacral edema. Bilateral fat containing inguinal hernias, syjlr-pombfgo-zsyh-left. Soft tissue edema and anasarca. Vgqm-jx-oovjlusa bilateral sacroiliac degenerative joint disease. There is no aggressive osseous proc ess. Moderate thoracolumbar degenerative disc disease. 4 mm retrolisthesis of L2 upon L3. Moderate jonh mbar facet hypertrophic changes. Old posterior right rib fractures.m Periumbilical hernia containing fat measuring 2.2 x 2.4 small meters. Small amount of fluid within t he hernia sac. IMPRESSION: 1. Bladder wall thickening with surrounding stranding. There is also air within the anterior and sup erior aspect of the bladder wall. These findings are concerning for cystitis/emphysematous cystitis. Recommend urology consultation for further management. 2. Bilateral lower lobe developing airspace consolidation and tiny bilateral pleural effusions. 3. Nonobstructing left renal calculus. 4. Atherosclerotic disease. 5. Other findings as described.
[2024-11-29] MEDS ORDERED: AMIODARONE 360mg/200mL PREMIX 200 ML IV SCH (19:15)
[2024-11-29] MEDS: AMIODARONE 360mg/200mL PREMIX 200 ML IV SCH (19:30)
[2024-11-29] MEDS: SODIUM CHLORIDE 0.9% 1,000 ML IV ONE (19:54)
[2024-11-30] VITALS (96 sets, daily range): BP systolic 81–115; BP diastolic 37–81; PULSE 90–118; RESP 12–34; TEMP 97.8–98.8; O2SAT 82–100
[2024-11-30 05:02] LABS: Basophils # (auto) 0.1 10 ^3/uL (0-0.2); Basophils % (auto) 0.6 % (0.0-2.0); Eosinophils # (auto) 0.2 10 ^3/uL (0-0.8); Hemoglobin 7.4 g/dL (13.5-17.5); Lymphocytes # (auto) 0.4 10 ^3/uL (0.4-5.4); Monocytes # (auto) 0.6 10 ^3/uL (0-1.3)
[2024-11-30 05:10] LABS: Eosinophils % (auto) 2.2 % (0.0-7.0); Hematocrit 22.3 % (41.0-53.0); Mean Corpuscular Hemoglobin 27.8 pg (28.0-32.0); Mean Corpuscular Hgb Conc. 33.2 g/dL (32.0-36.0); Mean Corpuscular Volume 83.8 fL (80.0-100.0); Monocytes % (auto) 5.6 % (0.0-12.0); Neutrophils # (auto) 8.8 10 ^3/uL (1.6-8.6); Neutrophils % (auto) 87.6 % (37.0-80.0); Platelet Count (auto) 173 10^3/uL (140-450); Red Blood Cells 2.66 10^6/uL (4.5-5.90); Red Cell Distribution Width 17.8 % (11.8-14.3)
[2024-11-30 05:15] LABS: Chloride 104 mmol/L (98-107)
[2024-11-30 05:16] LABS: Anion Gap 10 (5-15)
[2024-11-30 05:21] LABS: Blood Urea Nitrogen 22 mg/dL (9-23)
[2024-11-30 05:51] LABS: Calcium 8.3 mg/dL (8.7-10.4); Carbon Dioxide 20 mmol/L (20-31); Glucose 215 mg/dL (74-106); Sodium 134 mmol/L (136-145)
--- NOTE | 2024-11-30 07:41 | CODING ---
Date of Service: November 29, 2024 Billing Provider: JESSICA HINES NP Common Visit Codes: [id number] CARE 30-74 MIN JESSICA HINES NP November 30, 2024 07:41
--- NOTE | 2024-11-30 07:48 | DVHPN2 ---
Subjective Patient states that he feels better than yesterday. Reviewed: Care Plan, H&P, Labs, Medications Changes from previous H/P or p: No Changes General: Per HPI Eyes: No Pain, No Vision change, No Conjunctivae inflammation, No Eyelid inflammation, No Other, No Redness ENT: No Ear pain, No Ear discharge, No Nose pain, No Nose discharge, No Nose congestion, No Mouth pain, No Mouth swelling, No Throat pain, No Throat swelling, No Other Cardiovascular: No Chest Pain, No Palpitations, No Orthopnea, No Paroxysmal Noc. Dyspnea, No Edema, No Lt Headedness, No Other Respiratory: No Cough, No Dry, No Shortness of breath, No SOB with excertion, No Wheezing, No Hemoptysis, No Pleuritic Pain, No Sputum, No Other Gastrointestinal: No Nausea, No Vomiting, No Abdominal Pain, No Diarrhea, No Constipation, No Melena, No Hematochezia, No Other Genitourinary: No Dysuria, No Frequency, No Incontinence, No Hematuria; R etention, Other (penial pain) Musculoskeletal: No other, No neck pain, No shoulder pain, No arm pain, No back pain, No hand pain, No leg pain, No foot pain Skin: No Rash, No Lesions, No Jaundice, No Bruising, No Other Objective Vitals Vital Signs Date Time Temp Pulse Resp B/P (MAP) Pulse Ox O2 Delivery O2 Flow Rate FiO2 11/30/24 07:39 111 11/30/24 07:39 20 100 Nasal Cannula* 3 32 11/30/24 07:15 98/54 (69) 11/30/24 04:00 98.8 98.8 Intake/Output Intake and Output 11/30/24 07:00 Intake Total 2181.99 ml Output Total 1500 ml Balance 681.99 ml Intake Oral 300 ml IV Total 1881.99 ml Output Urine Total 1500 ml General Appearance: Alert, Oriented X3, Cooperative HEENT: Atraumatic, PERRLA Lungs: Clear to auscultation, Normal air movement Cardiovascular: Normal S1, Normal S2 Musculoskeletal: Normal sensory function, Normal motor function Skin: Dry, Intact Psych/Mental Status: Mental status NL, Mood NL Medications Current Medications Medications Dose Ordered Sig/Mustapha Route Start Time Stop Time Status Last Admin Dose Admin Acetaminophen/ Hydrocodone Bitart 1 tab Q4HP PRN PO 11/28/24 12:15 11/29/24 10:39 1 TAB Ondansetron HCl 4 mg Q4HP PRN IV 11/28/24 12:15 Docusate Sodium 100 mg BIDPRN PRN PO 11/28/24 12:15 Acetaminophen 650 mg Q6HP PRN PO 11/28/24 12:15 Morphine Sulfate 2 mg Q4HPRN PRN IV 11/28/24 12:15 Nitroglycerin 0.4 mg Q5MINP PRN SL 11/28/24 12:15 Morphine Sulfate 2 mg Q30M PRN IV 11/28/24 12:15 Diagnostic Test (Pha) 1 strip ACHS 11/28/24 17:00 11/30/24 06:38 1 STRIP Insulin Human Regular HS SC 11/28/24 22:00 11/29/24 22:00 3 UNITS Insulin Human Regular AC SC 11/28/24 17:00 11/30/24 06:39 2 UNITS Dextrose 50 ml UD PRN IV 11/28/24 12:15 Amiodarone HCl 200 mg DAILY PO 11/29/24 10:00 11/29/24 10:02 200 MG Apixaban 5 mg BID PO 11/28/24 22:00 11/29/24 21:59 5 MG Tamsulosin HCl 0.4 mg HS PO 11/28/24 22:00 11/29/24 21:59 0.4 MG Patient Own Medication 1 tab DAILY PO 11/29/24 10:00 Cefepime HCl 50 ml @ 12.5 mls/hr Q12HR IV 11/28/24 22:00 11/29/24 21:59 12.5 MLS/HR Phenylephrine HCl 250 ml @ 30 mls/hr Q8H20M IV 11/29/24 13:15 11/29/24 19:00 48.75 MLS/HR Laboratory Results Laboratory Tests 11/30/24 04:44 Chemistry Test 11/30/24 04:44 Calcium Level 8.3 mg/dL (8.7-10.4) L Urinalysis Test 11/28/24 09:07 Urine Color Colorless (Yellow) Urine Clarity Turbid (Clear) H Urine pH 5.0 (5.0-9.0) Urine Specific [place] 1.011 (1.001-1.035) Urine Protein 1+ (Negative) H Urine Ketones Negative (Negative) Urine Blood 3+ /uL (Negative) H Urine Nitrite Negative (Negative) Urine Bilirubin Negative (Negative) Urine Urobilinogen Normal mg/dL (Negative) Urine Leukocyte Esterase 3+ /uL (Negative) Urine RBC 243 /hpf (0 - 3) Urine Microscopic WBC 127 /HPF (0-3) H Urine Squamous Epithelial Cells None seen /hpf (<5) Urine Bacteria Few /hpf (None Seen) H Urine Glucose 4+ mg/dL (Normal) H Microbiology Microbiology Date/Time Source Procedure Growth Status 11/28/24 09:07 Urine - Catheterized Urine Culture - Preliminary Resulted 11/28/24 08:07 Blood Blood Culture - Preliminary Resulted Labs and/or images reviewed: Labs reviewed by me, Image(s) reviewed by me Assessment/Plan Assessment/Plan Impression: -sepsis secondary to complicated cystitis -complicated cystitis -history of prostate cancer -acute hypoxic respiratory failure -obesity -atrial fibrillation with rapid ventricular rate -primary hypertension -questionable RV failure, probably secondary to previous SC -hematuria, anemia, pernicious drop in hematocrit -CKD stage IIIB Plan: -events: Patient in ICU now. Off vasopressor therapy. Continues to be in AFib with RVR, improved rate. Clinically states he feels better. White blood cell count now normal. Renal function improving. CT of chest, abdomen, pelvis reviewed. -PSA pending -continue amiodarone drip per protocol. Stop after full 24 hour infusion -PT consultation -stop vancomycin, continue cefepime -blood and urine cultures -start IV hydration -continue rate control with amiodarone -continue anticoagulation with Eliquis. Continue to monitor H&H for worsening anemia -repeat labs in a.m. Total time spent with patient discussing and formulating plan of care: 35 minutes. This medical document was created using an electronic medical record system with [employer] dictation system. Although this document has been carefully reviewed, there may still be some phonetic and typographical errors. These areas are purely typographical due to imperfections of the software programs, and do not reflect any compromise in the patient's medical care. Plan discussed with: Patient, Other (RN) My Orders Orders - JESSICA HINES NP Procedure Category Date Status Time Psa Total+% Free LAB 11/30/24 In Process 04:00 Vitamin D 25-Hydroxy LAB 11/30/24 In Process D2 + D3 06:00 Chst Ab Pel Wo Con-No CT 11/29/24 Resulted Iv/Oral 11:31 Electrocardigram EKG 11/29/24 Logged 12:48 Transfer Orders XFER 11/29/24 Transmitted 13:05 Phenylephrine Iv PHA 11/29/24 In Process (Phenylephrine/Ns) 13:15 Amiodarone PHA 11/29/24 In Process 360mg/200ml Premix 19:30 * Wound Consult CONS 11/29/24 Transmitted Levalbuterol Hcl PHA 11/30/24 Transmitted (Xopenex Medneb) 12:00 Ipratropium Medneb PHA 11/30/24 Transmitted (Atrovent Medneb) 12:00 Basic Metabolic Panel LAB 12/01/24 Verified 04:00 Complete Blood Count LAB 12/01/24 Verified 04:00 Date of Service: November 30, 2024 Billing Provider: JESSICA HINES NP Common Visit Codes: [id number] DISCH DAY >30min JESSICA HINES NP November 30, 2024 07:48
[2024-11-30] MEDS: SODIUM CHLORIDE 0.9% 1,000 ML IV SCH (08:00)
--- NOTE | 2024-11-30 08:00 | ECG ---
[facility] Test Date: 2024-11-29 Test Time: 12:49:15 Pat Name: YESENIA BARRAZA Department: Respiratoy Room: 0261D Gender: M [employer]: CJ : 1945 Requested By: JESSICA HINES Order Number: [id number] Reading MD: Ryan Keating Measurements Intervals [place] Rate: 152 P: 0 IN: 0 QRS: 256 QRSD: 146 T: 63 QT: 328 QTc: 522 Interpretive Statements Extreme tachycardia with wide complex, no further rhythm analysis attempted Electronically Signed On 12-05-2024 11:56:12 PDT by Ryan Keating Please click the below link to view image of tracing.
[2024-11-30] MEDS: LEVALBUTEROL HCL 1.25 MG/3 ML NEB NEB SCH (11:13)
[2024-11-30] MEDS: IPRATROPIUM BROM 0.5 MG/2.5ML INH SOL NEB SCH (11:13)
--- NOTE | 2024-11-30 13:45 | MEDREC ---
[facility] Intervention Section I [facility] Intervention: Deescalate AB based on CS (The Final Blood and Urine culture showed Citrobacter koseri which is susceptible to Ceftriaxone. Please consider de-escalating Cefepime to Ceftriaxone 2 grams daily for bacteremia) TASHI SMIMONS November 30, 2024 13:45
[2024-12-01] VITALS (109 sets, daily range): BP systolic 89–146; BP diastolic 49–107; PULSE 80–141; RESP 14–35; TEMP 97.9–99.5; O2SAT 86–100
[2024-12-01 05:26] LABS: Basophils # (auto) 0 10 ^3/uL (0-0.2); Lymphocytes # (auto) 0.4 10 ^3/uL (0.4-5.4); Monocytes # (auto) 0.5 10 ^3/uL (0-1.3); Neutrophils % (auto) 82.8 % (37.0-80.0)
[2024-12-01 05:28] LABS: Basophils % (auto) 0.5 % (0.0-2.0); Eosinophils # (auto) 0.3 10 ^3/uL (0-0.8); Eosinophils % (auto) 3.6 % (0.0-7.0); Hematocrit 21.1 % (41.0-53.0); Lymphocytes % (auto) 5.7 % (10.0-50.0); Mean Corpuscular Hemoglobin 27.7 pg (28.0-32.0); Mean Corpuscular Hgb Conc. 33.1 g/dL (32.0-36.0); Mean Corpuscular Volume 83.7 fL (80.0-100.0); Monocytes % (auto) 7.4 % (0.0-12.0); Neutrophils # (auto) 5.7 10 ^3/uL (1.6-8.6); Nucleated Red Blood Cells % 0.1 %; Platelet Count (auto) 166 10^3/uL (140-450); Red Blood Cells 2.52 10^6/uL (4.5-5.90); Red Cell Distribution Width 18.1 % (11.8-14.3); White Blood Cell 6.9 10^3/uL (4.4-10.8)
[2024-12-01 05:40] LABS: Potassium 4.3 mmol/L (3.5-5.1); Sodium 137 mmol/L (136-145)
[2024-12-01 05:41] LABS: Anion Gap 10 (5-15); Carbon Dioxide 20 mmol/L (20-31)
[2024-12-01 05:45] LABS: Calcium 7.9 mg/dL (8.7-10.4); Chloride 107 mmol/L (98-107)
[2024-12-01 05:47] LABS: BUN/Creatinine Ratio 14.2 (10.0-20.0); Blood Urea Nitrogen 20 mg/dL (9-23)
[2024-12-01 05:50] LABS: Glucose 169 mg/dL (74-106)
[2024-12-01 11:07] LABS: PSA Free <0.02 ng/mL; Prostate Specific Antigen 0.2 ng/mL (0.0-4.0)
[2024-12-01 11:43] LABS: % Iron Saturation 7.7 % (20-55)
--- NOTE | 2024-12-01 14:29 | DVHPN2 ---
Subjective rate controlled. no BM. HB trend down, pt reported dark stool and was supposed to get colonoscopy. FOBT, iron pannel, transfuse PRBC, PT. patient can be downgraded to tele. switch amio drip to oral Reviewed: Care Plan, H&P, Labs, Medications Changes from previous H/P or p: No Changes General: Per HPI Eyes: No Pain, No Vision change, No Conjunctivae inflammation, No Eyelid inflammation, No Other, No Redness ENT: No Ear pain, No Ear discharge, No Nose pain, No Nose discharge, No Nose congestion, No Mouth pain, No Mouth swelling, No Throat pain, No Throat swelling, No Other Cardiovascular: No Chest Pain, No Palpitations, No Orthopnea, No Paroxysmal Noc. Dyspnea, No Edema, No Lt Headedness, No Other Respiratory: No Cough, No Dry, No Shortness of breath, No SOB with excertion, No Wheezing, No Hemoptysis, No Pleuritic Pain, No Sputum, No Other Gastrointestinal: No Nausea, No Vomiting, No Abdominal Pain, No Diarrhea, No Constipation, No Melena, No Hematochezia, No Other Genitourinary: No Dysuria, No Frequency, No Incontinence, No Hematuria; R etention, Other (penial pain) Musculoskeletal: No other, No neck pain, No shoulder pain, No arm pain, No back pain, No hand pain, No leg pain, No foot pain Skin: No Rash, No Lesions, No Jaundice, No Bruising, No Other Objective Vitals Vital Signs Date Time Temp Pulse Resp B/P (MAP) Pulse Ox O2 Delivery O2 Flow Rate FiO2 12/01/24 14:02 80 18 100 12/01/24 13:59 Nasal Cannula* 2 28 12/01/24 13:45 103/63 (76) 12/01/24 13:25 98.1 98.1 Intake/Output Intake and Output 12/01/24 07:00 Intake Total 3567.34 ml Output Total 1650 ml Balance 1917.34 ml Intake Oral 1080 ml IV Total 2487.34 ml Output Urine Total 1650 ml General Appearance: Alert, Oriented X3, Cooperative HEENT: Atraumatic, PERRLA Lungs: Clear to auscultation, Normal air movement Cardiovascular: Normal S1, Normal S2 Musculoskeletal: Normal sensory function, Normal motor function Skin: Dry, Intact Psych/Mental Status: Mental status NL, Mood NL Medications Current Medications Medications Dose Ordered Sig/Mustapha Route Start Time Stop Time Status Last Admin Dose Admin Acetaminophen/ Hydrocodone Bitart 1 tab Q4HP PRN PO 11/28/24 12:15 11/29/24 10:39 1 TAB Ondansetron HCl 4 mg Q4HP PRN IV 11/28/24 12:15 Docusate Sodium 100 mg BIDPRN PRN PO 11/28/24 12:15 Acetaminophen 650 mg Q6HP PRN PO 11/28/24 12:15 Morphine Sulfate 2 mg Q4HPRN PRN IV 11/28/24 12:15 Nitroglycerin 0.4 mg Q5MINP PRN SL 11/28/24 12:15 Morphine Sulfate 2 mg Q30M PRN IV 11/28/24 12:15 Diagnostic Test (Pha) 1 strip ACHS 11/28/24 17:00 12/01/24 11:10 1 STRIP Insulin Human Regular HS SC 11/28/24 22:00 11/30/24 21:55 6 UNITS Insulin Human Regular AC SC 11/28/24 17:00 12/01/24 11:15 3 UNITS Dextrose 50 ml UD PRN IV 11/28/24 12:15 Amiodarone HCl 200 mg DAILY PO 11/29/24 10:00 12/01/24 08:14 200 MG Apixaban 5 mg BID PO 11/28/24 22:00 12/01/24 08:14 5 MG Tamsulosin HCl 0.4 mg HS PO 11/28/24 22:00 11/30/24 21:55 0.4 MG Patient Own Medication 1 tab DAILY PO 11/29/24 10:00 Cefepime HCl 50 ml @ 12.5 mls/hr Q12HR IV 11/28/24 22:00 12/01/24 08:14 12.5 MLS/HR Phenylephrine HCl 250 ml @ 30 mls/hr Q8H20M IV 11/29/24 13:15 11/29/24 19:00 48.75 MLS/HR Levalbuterol HCl 0.625 mg Q6HR NEB 11/30/24 12:00 12/01/24 12:58 0.625 MG Ipratropium Ages [place] 0.5 mg Q6HR NEB 11/30/24 12:00 12/01/24 12:58 0.5 MG Laboratory Results Laboratory Tests 12/01/24 05:08 Chemistry Test 12/01/24 05:08 Calcium Level 7.9 mg/dL (8.7-10.4) L Urinalysis Test 11/28/24 09:07 Urine Color Colorless (Yellow) Urine Clarity Turbid (Clear) H Urine pH 5.0 (5.0-9.0) Urine Specific [place] 1.011 (1.001-1.035) Urine Protein 1+ (Negative) H Urine Ketones Negative (Negative) Urine Blood 3+ /uL (Negative) H Urine Nitrite Negative (Negative) Urine Bilirubin Negative (Negative) Urine Urobilinogen Normal mg/dL (Negative) Urine Leukocyte Esterase 3+ /uL (Negative) Urine RBC 243 /hpf (0 - 3) Urine Microscopic WBC 127 /HPF (0-3) H Urine Squamous Epithelial Cells None seen /hpf (<5) Urine Bacteria Few /hpf (None Seen) H Urine Glucose 4+ mg/dL (Normal) H Microbiology Microbiology Date/Time Source Procedure Growth Status 11/28/24 09:07 Urine - Catheterized Urine Culture - Final Citrobacter koseri Complete 11/28/24 08:07 Blood Blood Culture - Final Citrobacter koseri Complete Assessment/Plan Assessment/Plan Impression: -sepsis secondary to complicated cystitis -complicated cystitis -history of prostate cancer -acute hypoxic respiratory failure -obesity -atrial fibrillation with rapid ventricular rate -primary hypertension -questionable RV failure, probably secondary to previous CA -hematuria, anemia, pernicious drop in hematocrit -CKD stage IIIB Plan: -events: Off vasopressor therapy. Continues to be in AFib with RVR, improved rate. Clinically states he feels better. White blood cell count now normal. Renal function improving. CT of chest, abdomen, pelvis reviewed. -PSA pending -continue amiodarone drip per protocol. Stop after full 24 hour infusion -PT consultation -stop vancomycin, continue cefepime -blood and urine cultures -start IV hydration -continue rate control with amiodarone -continue anticoagulation with Eliquis. Continue to monitor H&H for worsening anemia FOBT, currently ok with eliquis, if fobt positive will dc until colonoscopy dc amio switch to PO amio -repeat labs in a.m. Total time spent with patient discussing and formulating plan of care: 35 minutes. Plan discussed with: Patient Date of Service: December 01, 2024 Billing Provider: ALIYAH VAZQUEZ MD Common Visit Codes: [id number] CARE 30-74 MIN ALIYAH VAZQUEZ MD December 01, 2024 14:29
[2024-12-01 18:15] LABS: Hematocrit 25.2 % (41.0-53.0); Hemoglobin 8.3 g/dL (13.5-17.5)
[2024-12-01] MEDS: MORPHINE SULFATE INJ 2 MG/ml SYRG IV PRN (20:45)
[2024-12-01] MEDS: NITROGLYCERIN 0.4 MG SL TAB SL PRN (20:47)
[2024-12-01] MEDS: AMIODARONE 360mg/200mL PREMIX 200 ML IV SCH (21:43)
[2024-12-01 22:08] LABS: Eosinophils # (auto) 0.2 10 ^3/uL (0-0.8); Lymphocytes # (auto) 0.4 10 ^3/uL (0.4-5.4); Neutrophils # (auto) 6.6 10 ^3/uL (1.6-8.6); Nucleated Red Blood Cells % 0.1 %
[2024-12-01 22:09] LABS: Basophils # (auto) 0 10 ^3/uL (0-0.2); Basophils % (auto) 0.4 % (0.0-2.0); Eosinophils % (auto) 2.9 % (0.0-7.0); Hematocrit 24.7 % (41.0-53.0); Hemoglobin 8.4 g/dL (13.5-17.5); Lymphocytes % (auto) 5.5 % (10.0-50.0); Mean Corpuscular Hemoglobin 28.1 pg (28.0-32.0); Mean Corpuscular Hgb Conc. 33.8 g/dL (32.0-36.0); Mean Corpuscular Volume 83.2 fL (80.0-100.0); Monocytes # (auto) 0.6 10 ^3/uL (0-1.3); Neutrophils % (auto) 83.2 % (37.0-80.0); Platelet Count (auto) 198 10^3/uL (140-450); Red Blood Cells 2.97 10^6/uL (4.5-5.90); White Blood Cell 7.9 10^3/uL (4.4-10.8)
[2024-12-01 22:13] LABS: Potassium 4.3 mmol/L (3.5-5.1); Sodium 137 mmol/L (136-145)
[2024-12-01 22:14] LABS: Anion Gap 9 (5-15)
[2024-12-01 22:15] LABS: Calcium 8.9 mg/dL (8.7-10.4)
[2024-12-01 22:19] LABS: BUN/Creatinine Ratio 13.2 (10.0-20.0); Blood Urea Nitrogen 20 mg/dL (9-23)
[2024-12-01 22:29] LABS: Carbon Dioxide 20 mmol/L (20-31); Chloride 108 mmol/L (98-107); Glucose 218 mg/dL (74-106)
--- NOTE | 2024-12-01 22:54 | DVHPN2 ---
Progress Note - Dictate Date Seen: December 01, 2024 Medical Necessity Reason Pt with a Central, PICC or Fol: Yes The following are medically ne: Curry Catheter Reason for curry catheter: Strict I&O Subjective History of Present Illness: A 79-year-old man with past medical history of prostate cancer, atrial fibrillation, CHF, hypertension, hyperlipidemia, diabetes, and ND who presented to ED on 11/28/24 due to penile pain. Patient had just gotten out of the shower, was putting on his underwear when he felt a pull and then a pop with his Curry catheter. He then had a burning pain in his penis and there was no urine draining from the catheter, thus presented to ED. ER changed out the catheter and drained 700 ml yellow urine. He did have about 50 ml of hematuria at first which cleared up quickly. Pt also reported chronic shortness of breath and bilateral lower extremity edema. He reports he tried to get home oxygen but did not qualify. Patient was admitted for further care, and pulmonary consultation is requested for evaluation and management of acute hypoxic respiratory failure. He is currently on 2 LPM [place] supplemental oxygen Review of Systems: 14-point review of systems negative unless otherwise noted above. Past Medical History: Prostate cancer, atrial fibrillation, CHF, hypertension, hyperlipidemia, diabetes, and ND Past Surgical History: CABG (2006) Medications: Reviewed. Allergies: No known drug allergies. Family History: No family history of premature CAD. No family history of lung disorders. Social History: Nonsmoker. No alcohol or illicit drug use. vital signs Vital Sign Date Time Temp Pulse Resp B/P (MAP) Pulse Ox O2 Delivery O2 Flow Rate FiO2 12/01/24 22:28 138 17 135/88 12/01/24 22:00 99 12/01/24 20:00 98.4 98.4 12/01/24 18:34 Nasal Cannula* 2 28 Total Intake and Output 11/30/24 11/30/24 12/01/24 15:00 23:00 07:00 Intake Total 1250.78 ml 1346.78 ml 969.78 ml Output Total 650 ml 1000 ml Balance 1250.78 ml 696.78 ml -30.22 ml medications Current Medications Medications Dose Ordered Sig/Mustapha Route Start Time Stop Time Status Last Admin Dose Admin Acetaminophen/ Hydrocodone Bitart 1 tab Q4HP PRN PO 11/28/24 12:15 11/29/24 10:39 1 TAB Ondansetron HCl 4 mg Q4HP PRN IV 11/28/24 12:15 Docusate Sodium 100 mg BIDPRN PRN PO 11/28/24 12:15 Acetaminophen 650 mg Q6HP PRN PO 11/28/24 12:15 Morphine Sulfate 2 mg Q4HPRN PRN IV 11/28/24 12:15 Nitroglycerin 0.4 mg Q5MINP PRN SL 11/28/24 12:15 12/01/24 20:47 0.4 MG Morphine Sulfate 2 mg Q30M PRN IV 11/28/24 12:15 12/01/24 21:58 2 MG Diagnostic Test (Pha) 1 strip ACHS 11/28/24 17:00 12/01/24 21:46 1 STRIP Insulin Human Regular HS SC 11/28/24 22:00 12/01/24 21:47 4 UNITS Insulin Human Regular AC SC 11/28/24 17:00 12/01/24 17:09 3 UNITS Dextrose 50 ml UD PRN IV 11/28/24 12:15 Apixaban 5 mg BID PO 11/28/24 22:00 12/01/24 21:45 5 MG Tamsulosin HCl 0.4 mg HS PO 11/28/24 22:00 12/01/24 21:45 0.4 MG Patient Own Medication 1 tab DAILY PO 11/29/24 10:00 Cefepime HCl 50 ml @ 12.5 mls/hr Q12HR IV 11/28/24 22:00 12/01/24 21:45 12.5 MLS/HR Phenylephrine HCl 250 ml @ 30 mls/hr Q8H20M IV 11/29/24 13:15 11/29/24 19:00 48.75 MLS/HR Levalbuterol HCl 0.625 mg Q6HR NEB 11/30/24 12:00 12/01/24 18:34 0.625 MG Ipratropium [place] 0.5 mg Q6HR NEB 11/30/24 12:00 12/01/24 18:34 0.5 MG objective Gen.: Patient lying in bed in no apparent distress. On supplemental oxygen. Head: Normocephalic, atraumatic. Eyes: EOMI/PERRLA. Ears: Normal hearing. Normal anatomy. Neck/trachea: Trachea midline, supple. Nose: Normal external anatomy. Mouth: Moist mucous membranes. Chest: Decreased air entry bilaterally. No wheezing or rhonchi. Cardiovascular: Positive S1, positive S2. Regular rate and rhythm. Abdomen: Positive bowel sounds in all 4 quadrants. Soft, non-tender, non- distended. : Deferred. Rectal: Deferred. Skin: Warm, dry. Intact. Extremities: 2+ radial pulses bilaterally. No lower extremity edema. Neuro: Awake, alert, oriented x3. No gross motor or sensory deficits. Cranial nerves II through XII intact. Gait not assessed. laboratory and microbiology Laboratory Tests 12/01/24 21:57 Test 12/01/24 21:57 Range/Units Serum Glucose 218 H 74-106 mg/dL Assessment/Plan Impression: Acute hypoxic respiratory failure Dependence on supplemental oxygen Sepsis 2/2 cystitis Atrial fibrillation with rapid ventricular response Congestive heart failure, diastolic Obesity Anemia Plan: Supplemental oxygen 2 LPM [place] Titrate to keep O2 sats above 92%. Taper O2 as tolerated. Continue bronchodilators. Continue antibiotics Amiodarone PO Cardiology recs appreciated s/p 1 unit PRBC transfusion Monitor hemoglobin Eliquis BID Accu-Cheks, ISS. Monitor renal function. Monitor electrolytes. Supplement as necessary. Monitor ins and outs. DVT prophylaxis - Eliquis. Prognosis: Poor given patient's multiple co-morbidities. Rest of plan per hospitalist and other consultants. Thank you for allowing me to participate in this patient's care. Further recommendations will depend on the patient's clinical course. Please do not hesitate to contact me if you have any questions or concerns. This medical document was created using an electronic medical record system with [email or web address] dictation system. Although these documentations are being carefully reviewed, there may still be some phonetic and typographical changes. The errors are purely typographical, due to imperfection on the software program, and do not reflect any compromise in the patient's medical care. Plan discussed with: Patient, Other (DAYA Brown) LOKESH HERMAN MD December 01, 2024 22:54
[2024-12-02] VITALS (101 sets, daily range): BP systolic 89–138; BP diastolic 42–83; PULSE 80–120; RESP 16–35; TEMP 97.6–99.3; O2SAT 93–100
[2024-12-02] MEDS ORDERED: AMIODARONE 360mg/200mL PREMIX 200 ML IV SCH (03:15)
--- NOTE | 2024-12-02 17:48 | DVHPN2 ---
Subjective back to rvr overnight, wide qtc. dc amio drip, restart oral amio. can use diltiazem if RVR (last time bp was adequate). uptitrate rate control Reviewed: Care Plan, H&P, Labs, Medications Changes from previous H/P or p: No Changes General: Per HPI Eyes: No Pain, No Vision change, No Conjunctivae inflammation, No Eyelid inflammation, No Other, No Redness ENT: No Ear pain, No Ear discharge, No Nose pain, No Nose discharge, No Nose congestion, No Mouth pain, No Mouth swelling, No Throat pain, No Throat swelling, No Other Cardiovascular: No Chest Pain, No Palpitations, No Orthopnea, No Paroxysmal Noc. Dyspnea, No Edema, No Lt Headedness, No Other Respiratory: No Cough, No Dry, No Shortness of breath, No SOB with excertion, No Wheezing, No Hemoptysis, No Pleuritic Pain, No Sputum, No Other Gastrointestinal: No Nausea, No Vomiting, No Abdominal Pain, No Diarrhea, No Constipation, No Melena, No Hematochezia, No Other Genitourinary: No Dysuria, No Frequency, No Incontinence, No Hematuria; R etention, Other (penial pain) Musculoskeletal: No other, No neck pain, No shoulder pain, No arm pain, No back pain, No hand pain, No leg pain, No foot pain Skin: No Rash, No Lesions, No Jaundice, No Bruising, No Other Objective Vitals Vital Signs Date Time Temp Pulse Resp B/P (MAP) Pulse Ox O2 Delivery O2 Flow Rate FiO2 12/02/24 17:41 85 12/02/24 17:41 21 97 Nasal Cannula* 2 28 12/02/24 17:30 108/63 (78) 12/02/24 16:45 99.3 99.3 Intake/Output Intake and Output 12/02/24 07:00 Intake Total 1224.08 ml Output Total 2300 ml Balance -1075.92 ml Intake Oral 620 ml IV Total 304.08 ml Blood Product 300 ml Output Urine Total 2300 ml General Appearance: Alert, Oriented X3, Cooperative HEENT: Atraumatic, PERRLA Lungs: Clear to auscultation, Normal air movement Cardiovascular: Normal S1, Normal S2 Musculoskeletal: Normal sensory function, Normal motor function Skin: Dry, Intact Psych/Mental Status: Mental status NL, Mood NL Medications Current Medications Medications Dose Ordered Sig/Mustapha Route Start Time Stop Time Status Last Admin Dose Admin Acetaminophen/ Hydrocodone Bitart 1 tab Q4HP PRN PO 11/28/24 12:15 11/29/24 10:39 1 TAB Ondansetron HCl 4 mg Q4HP PRN IV 11/28/24 12:15 Docusate Sodium 100 mg BIDPRN PRN PO 11/28/24 12:15 Acetaminophen 650 mg Q6HP PRN PO 11/28/24 12:15 Morphine Sulfate 2 mg Q4HPRN PRN IV 11/28/24 12:15 Nitroglycerin 0.4 mg Q5MINP PRN SL 11/28/24 12:15 12/01/24 20:47 0.4 MG Morphine Sulfate 2 mg Q30M PRN IV 11/28/24 12:15 12/01/24 21:58 2 MG Diagnostic Test (Pha) 1 strip ACHS 11/28/24 17:00 12/02/24 16:42 1 STRIP Insulin Human Regular HS SC 11/28/24 22:00 12/01/24 21:47 4 UNITS Insulin Human Regular AC SC 11/28/24 17:00 12/02/24 16:42 2 UNITS Dextrose 50 ml UD PRN IV 11/28/24 12:15 Apixaban 5 mg BID PO 11/28/24 22:00 12/02/24 08:36 5 MG Tamsulosin HCl 0.4 mg HS PO 11/28/24 22:00 12/01/24 21:45 0.4 MG Patient Own Medication 1 tab DAILY PO 11/29/24 10:00 Cefepime HCl 50 ml @ 12.5 mls/hr Q12HR IV 11/28/24 22:00 12/02/24 07:34 12.5 MLS/HR Phenylephrine HCl 250 ml @ 30 mls/hr Q8H20M IV 11/29/24 13:15 11/29/24 19:00 48.75 MLS/HR Levalbuterol HCl 0.625 mg Q6HR NEB 11/30/24 12:00 12/02/24 13:39 0.625 MG Ipratropium [place] 0.5 mg Q6HR NEB 11/30/24 12:00 12/02/24 13:39 0.5 MG Amiodarone HCl 200 mg Q12HR PO 12/02/24 22:00 Laboratory Results Laboratory Tests 12/01/24 21:57 Chemistry Test 12/01/24 21:57 Calcium Level 8.9 mg/dL (8.7-10.4) Urinalysis Test 11/28/24 09:07 Urine Color Colorless (Yellow) Urine Clarity Turbid (Clear) H Urine pH 5.0 (5.0-9.0) Urine Specific [place] 1.011 (1.001-1.035) Urine Protein 1+ (Negative) H Urine Ketones Negative (Negative) Urine Blood 3+ /uL (Negative) H Urine Nitrite Negative (Negative) Urine Bilirubin Negative (Negative) Urine Urobilinogen Normal mg/dL (Negative) Urine Leukocyte Esterase 3+ /uL (Negative) Urine RBC 243 /hpf (0 - 3) Urine Microscopic WBC 127 /HPF (0-3) H Urine Squamous Epithelial Cells None seen /hpf (<5) Urine Bacteria Few /hpf (None Seen) H Urine Glucose 4+ mg/dL (Normal) H Microbiology Microbiology Date/Time Source Procedure Growth Status 11/28/24 09:07 Urine - Catheterized Urine Culture - Final Citrobacter koseri Complete 11/28/24 08:07 Blood Blood Culture - Final Citrobacter koseri Complete Assessment/Plan Assessment/Plan Impression: -sepsis secondary to complicated cystitis -complicated cystitis -history of prostate cancer -acute hypoxic respiratory failure -obesity -atrial fibrillation with rapid ventricular rate -primary hypertension -questionable RV failure, probably secondary to previous [place] -hematuria, anemia, pernicious drop in hematocrit -CKD stage IIIB Plan: -events: Off vasopressor therapy. Continues to be in AFib with RVR, improved rate. Clinically states he feels better. White blood cell count now normal. Renal function improving. CT of chest, abdomen, pelvis reviewed. -PSA pending -continue amiodarone drip per protocol. Stop after full 24 hour infusion -PT consultation -stop vancomycin, continue cefepime -blood and urine cultures -continue rate control with amiodarone -continue anticoagulation with Eliquis. Continue to monitor H&H for worsening anemia FOBT, currently ok with eliquis, if fobt positive will dc until colonoscopy dc amio switch to PO amio PRN diltiazem titrate rate control -repeat labs in a.m. c/w pt, extremely deconditioned Total time spent with patient discussing and formulating plan of care: 35 minutes. Plan discussed with: Patient My Orders Orders - ALIYAH VAZQUEZ MD Procedure Category Date Status Time Amiodarone Tablet PHA 12/02/24 In Process (Cordarone Tablet) 22:00 Date of Service: December 02, 2024 Billing Provider: ALIYAH VAZQUEZ MD Common Visit Codes: [id number] CARE 30-74 MIN ALIYAH VAZQUEZ MD December 02, 2024 17:48
[2024-12-02] MEDS: AMIODARONE HCL 200 MG TAB PO SCH (21:57)
--- NOTE | 2024-12-02 23:03 | DVHPN2 ---
Progress Note - Dictate Date Seen: December 02, 2024 Medical Necessity Reason Pt with a Central, PICC or Fol: Yes The following are medically ne: Curry Catheter Reason for curry catheter: Strict I&O Subjective Patient seen and examined at bedside. Remains on supplemental oxygen Overnight events reviewed. History of Present Illness: A 79-year-old man with past medical history of prostate cancer, atrial fibrillation, CHF, hypertension, hyperlipidemia, diabetes, and PR who presented to ED on 11/28/24 due to penile pain. Patient had just gotten out of the shower, was putting on his underwear when he felt a pull and then a pop with his Curry catheter. He then had a burning pain in his penis and there was no urine draining from the catheter, thus presented to ED. ER changed out the catheter and drained 700 ml yellow urine. He did have about 50 ml of hematuria at first which cleared up quickly. Pt also reported chronic shortness of breath and bilateral lower extremity edema. He reports he tried to get home oxygen but did not qualify. Patient was admitted for further care, and pulmonary consultation is requested for evaluation and management of acute hypoxic respiratory failure. Review of Systems: 14-point review of systems negative unless otherwise noted above. Past Medical History: Prostate cancer, atrial fibrillation, CHF, hypertension, hyperlipidemia, diabetes, and PR Past Surgical History: CABG (2006) Medications: Reviewed. Allergies: No known drug allergies. Family History: No family history of premature CAD. No family history of lung disorders. Social History: Nonsmoker. No alcohol or illicit drug use. vital signs Vital Sign Date Time Temp Pulse Resp B/P (MAP) Pulse Ox O2 Delivery O2 Flow Rate FiO2 12/02/24 23:00 87 25 124/66 (85) 98 12/02/24 22:00 Nasal Cannula* 2 28 12/02/24 20:00 99.2 99.2 Total Intake and Output 12/01/24 12/01/24 12/02/24 15:00 23:00 07:00 Intake Total 104.14 ml 816.66 ml 303.28 ml Output Total 1000 ml 1300 ml Balance 104.14 ml -183.34 ml -996.72 ml medications Current Medications Medications Dose Ordered Sig/Mustapha Route Start Time Stop Time Status Last Admin Dose Admin Acetaminophen/ Hydrocodone Bitart 1 tab Q4HP PRN PO 11/28/24 12:15 11/29/24 10:39 1 TAB Ondansetron HCl 4 mg Q4HP PRN IV 11/28/24 12:15 Acetaminophen 650 mg Q6HP PRN PO 11/28/24 12:15 Morphine Sulfate 2 mg Q4HPRN PRN IV 11/28/24 12:15 Nitroglycerin 0.4 mg Q5MINP PRN SL 11/28/24 12:15 12/01/24 20:47 0.4 MG Diagnostic Test (Pha) 1 strip ACHS 11/28/24 17:00 12/02/24 21:57 1 STRIP Insulin Human Regular HS SC 11/28/24 22:00 12/02/24 22:04 2 UNITS Insulin Human Regular AC SC 11/28/24 17:00 12/02/24 16:42 2 UNITS Dextrose 50 ml UD PRN IV 11/28/24 12:15 Apixaban 5 mg BID PO 11/28/24 22:00 12/02/24 21:57 5 MG Tamsulosin HCl 0.4 mg HS PO 11/28/24 22:00 12/02/24 21:56 0.4 MG Patient Own Medication 1 tab DAILY PO 11/29/24 10:00 Cefepime HCl 50 ml @ 12.5 mls/hr Q12HR IV 11/28/24 22:00 12/02/24 21:57 12.5 MLS/HR Levalbuterol HCl 0.625 mg Q6HR NEB 11/30/24 12:00 12/02/24 18:07 0.625 MG Ipratropium [place] 0.5 mg Q6HR NEB 11/30/24 12:00 12/02/24 18:07 0.5 MG Amiodarone HCl 200 mg Q12HR PO 12/02/24 22:00 12/02/24 21:57 200 MG objective Gen.: Patient lying in bed in no apparent distress. On supplemental oxygen. Head: Normocephalic, atraumatic. Eyes: EOMI/PERRLA. Ears: Normal hearing. Normal anatomy. Neck/trachea: Trachea midline, supple. Nose: Normal external anatomy. Mouth: Moist mucous membranes. Chest: Decreased air entry bilaterally. No wheezing or rhonchi. Cardiovascular: Positive S1, positive S2. Regular rate and rhythm. Abdomen: Positive bowel sounds in all 4 quadrants. Soft, non-tender, non- distended. : Deferred. Rectal: Deferred. Skin: Warm, dry. Intact. Extremities: 2+ radial pulses bilaterally. No lower extremity edema. Neuro: Awake, alert, oriented x3. No gross motor or sensory deficits. Cranial nerves II through XII intact. Gait not assessed. laboratory and microbiology Laboratory Tests 12/01/24 21:57 Test 12/01/24 21:57 Range/Units Serum Glucose 218 H 74-106 mg/dL Assessment/Plan Impression: Acute hypoxic respiratory failure Dependence on supplemental oxygen Sepsis 2/2 cystitis Atrial fibrillation with rapid ventricular response Congestive heart failure, diastolic Obesity Anemia Events: Remains on supplemental oxygen, 2 LPM [place] Taper O2 as tolerated Amio drip for AFib with RVR -transitioned to amiodarone PO Eliquis BID Continue antibiotics Lovenox for DVT prophylaxis Labs and imaging reviewed. Rest of plan as noted below. Plan: Supplemental oxygen Titrate to keep O2 sats above 92%. Continue bronchodilators. Continue antibiotics Amiodarone PO Cardiology recs appreciated Monitor hemoglobin Eliquis BID Accu-Cheks, ISS. Monitor renal function. Monitor electrolytes. Supplement as necessary. Monitor ins and outs. DVT prophylaxis Prognosis: Poor given patient's multiple co-morbidities. Rest of plan per hospitalist and other consultants. Thank you for allowing me to participate in this patient's care. Further recommendations will depend on the patient's clinical course. Please do not hesitate to contact me if you have any questions or concerns. This medical document was created using an electronic medical record system with [employer] dictation system. Although these documentations are being carefully reviewed, there may still be some phonetic and typographical changes. The errors are purely typographical, due to imperfection on the software program, and do not reflect any compromise in the patient's medical care. Plan discussed with: Patient, Other (DAYA Brown) LOKESH HERMAN MD December 02, 2024 23:03
[2024-12-03] VITALS (89 sets, daily range): BP systolic 88–135; BP diastolic 44–76; PULSE 77–97; RESP 12–31; TEMP 98–100.1; O2SAT 95–100
[2024-12-03 05:50] LABS: Basophils # (auto) 0 10 ^3/uL (0-0.2); Eosinophils # (auto) 0.2 10 ^3/uL (0-0.8); Hemoglobin 8.4 g/dL (13.5-17.5); Lymphocytes # (auto) 0.3 10 ^3/uL (0.4-5.4); Monocytes # (auto) 0.7 10 ^3/uL (0-1.3); Nucleated Red Blood Cells % 0.2 %; Red Cell Distribution Width 17.5 % (11.8-14.3); White Blood Cell 5.7 10^3/uL (4.4-10.8)
[2024-12-03 05:56] LABS: Basophils % (auto) 0.6 % (0.0-2.0); Hematocrit 25.6 % (41.0-53.0); Lymphocytes % (auto) 5.4 % (10.0-50.0); Mean Corpuscular Hemoglobin 27.5 pg (28.0-32.0); Mean Corpuscular Hgb Conc. 32.7 g/dL (32.0-36.0); Mean Corpuscular Volume 84.1 fL (80.0-100.0); Monocytes % (auto) 12.7 % (0.0-12.0); Neutrophils # (auto) 4.5 10 ^3/uL (1.6-8.6); Neutrophils % (auto) 78.3 % (37.0-80.0); Platelet Count (auto) 213 10^3/uL (140-450); Red Blood Cells 3.05 10^6/uL (4.5-5.90)
[2024-12-03 05:59] LABS: Chloride 107 mmol/L (98-107); Potassium 4.1 mmol/L (3.5-5.1)
[2024-12-03 06:00] LABS: Anion Gap 10 (5-15); Calcium 9.1 mg/dL (8.7-10.4)
[2024-12-03 06:05] LABS: BUN/Creatinine Ratio 9.4 (10.0-20.0); Blood Urea Nitrogen 14 mg/dL (9-23); Carbon Dioxide 19 mmol/L (20-31); Glucose 142 mg/dL (74-106); Sodium 136 mmol/L (136-145)
[2024-12-03 06:07] LABS: Magnesium 1.4 mg/dL (1.6-2.6)
[2024-12-03 06:25] LABS: Phosphorus 3.3 mg/dL (2.4-5.1)
[2024-12-03] MEDS: guaiFENesin-DM 100/10mg/5ml SYR PO PRN (09:27)
[2024-12-03] MEDS: MAGNESIUM OXIDE 400 MG TAB PO SCH (09:27)
[2024-12-03] MEDS: ISOSORBIDE MONONITRATE ER 60 MG TAB PO SCH (09:28)
[2024-12-03] MEDS: dilTIAZem 120MG ER CAP PO SCH (09:28)
--- NOTE | 2024-12-03 09:42 | DVHPN2 ---
Subjective Patient states that he feels better than yesterday. Reviewed: Care Plan, H&P, Labs, Medications Changes from previous H/P or p: No Changes General: Per HPI Eyes: No Pain, No Vision change, No Conjunctivae inflammation, No Eyelid inflammation, No Other, No Redness ENT: No Ear pain, No Ear discharge, No Nose pain, No Nose discharge, No Nose congestion, No Mouth pain, No Mouth swelling, No Throat pain, No Throat swelling, No Other Cardiovascular: No Chest Pain, No Palpitations, No Orthopnea, No Paroxysmal Noc. Dyspnea, No Edema, No Lt Headedness, No Other Respiratory: No Cough, No Dry, No Shortness of breath, No SOB with excertion, No Wheezing, No Hemoptysis, No Pleuritic Pain, No Sputum, No Other Gastrointestinal: No Nausea, No Vomiting, No Abdominal Pain, No Diarrhea, No Constipation, No Melena, No Hematochezia, No Other Genitourinary: No Dysuria, No Frequency, No Incontinence, No Hematuria; R etention, Other (penial pain) Musculoskeletal: No other, No neck pain, No shoulder pain, No arm pain, No back pain, No hand pain, No leg pain, No foot pain Skin: No Rash, No Lesions, No Jaundice, No Bruising, No Other Objective Vitals Vital Signs Date Time Temp Pulse Resp B/P (MAP) Pulse Ox O2 Delivery O2 Flow Rate FiO2 12/03/24 09:28 112/64 12/03/24 09:28 84 12/03/24 08:02 22 98 2.0 28 12/03/24 08:00 99.2 99.2 12/03/24 08:00 Nasal Cannula* Intake/Output Intake and Output 12/03/24 07:00 Intake Total 1068.28 ml Output Total 2575 ml Balance -1506.72 ml Intake Oral 860 ml IV Total 208.28 ml Output Urine Total 2575 ml General Appearance: Alert, Oriented X3, Cooperative HEENT: Atraumatic, PERRLA Lungs: Clear to auscultation, Normal air movement Cardiovascular: Normal S1, Normal S2 Musculoskeletal: Normal sensory function, Normal motor function Skin: Dry, Intact Psych/Mental Status: Mental status NL, Mood NL Medications Current Medications Medications Dose Ordered Sig/[place]ha Route Start Time Stop Time Status Last Admin Dose Admin Acetaminophen/ Hydrocodone Bitart 1 tab Q4HP PRN PO 11/28/24 12:15 11/29/24 10:39 1 TAB Ondansetron HCl 4 mg Q4HP PRN IV 11/28/24 12:15 Acetaminophen 650 mg Q6HP PRN PO 11/28/24 12:15 Morphine Sulfate 2 mg Q4HPRN PRN IV 11/28/24 12:15 Nitroglycerin 0.4 mg Q5MINP PRN SL 11/28/24 12:15 12/01/24 20:47 0.4 MG Diagnostic Test (Pha) 1 strip ACHS 11/28/24 17:00 12/03/24 06:06 1 STRIP Insulin Human Regular HS SC 11/28/24 22:00 12/02/24 22:04 2 UNITS Insulin Human Regular AC SC 11/28/24 17:00 12/03/24 06:11 2 UNITS Dextrose 50 ml UD PRN IV 11/28/24 12:15 Apixaban 5 mg BID PO 11/28/24 22:00 12/03/24 08:30 5 MG Tamsulosin HCl 0.4 mg HS PO 11/28/24 22:00 12/02/24 21:56 0.4 MG Patient Own Medication 1 tab DAILY PO 11/29/24 10:00 Cefepime HCl 50 ml @ 12.5 mls/hr Q12HR IV 11/28/24 22:00 12/03/24 08:30 12.5 MLS/HR Levalbuterol HCl 0.625 mg Q6HR NEB 11/30/24 12:00 12/03/24 05:37 0.625 MG Ipratropium [place] 0.5 mg Q6HR NEB 11/30/24 12:00 12/03/24 05:37 0.5 MG Amiodarone HCl 200 mg Q12HR PO 12/02/24 22:00 12/03/24 08:30 200 MG Diltiazem HCl 120 mg DAILY PO 12/03/24 10:00 12/03/24 09:28 120 MG Magnesium Oxide 800 mg DAILY PO 12/03/24 10:00 12/03/24 09:27 800 MG Guaifenesin/ Dextromethorphan 10 ml Q4HP PRN PO 12/03/24 09:15 12/03/24 09:27 10 ML Isosorbide Mononitrate 30 mg DAILY PO 12/03/24 10:00 12/03/24 09:28 30 MG Laboratory Results Laboratory Tests 12/03/24 05:25 Chemistry Test 12/03/24 05:25 Calcium Level 9.1 mg/dL (8.7-10.4) Magnesium Level 1.4 mg/dL (1.6-2.6) L Phosphorus Level 3.3 mg/dL (2.4-5.1) Urinalysis Test 11/28/24 09:07 Urine Color Colorless (Yellow) Urine Clarity Turbid (Clear) H Urine pH 5.0 (5.0-9.0) Urine Specific [place] 1.011 (1.001-1.035) Urine Protein 1+ (Negative) H Urine Ketones Negative (Negative) Urine Blood 3+ /uL (Negative) H Urine Nitrite Negative (Negative) Urine Bilirubin Negative (Negative) Urine Urobilinogen Normal mg/dL (Negative) Urine Leukocyte Esterase 3+ /uL (Negative) Urine RBC 243 /hpf (0 - 3) Urine Microscopic WBC 127 /HPF (0-3) H Urine Squamous Epithelial Cells None seen /hpf (<5) Urine Bacteria Few /hpf (None Seen) H Urine Glucose 4+ mg/dL (Normal) H Microbiology Microbiology Date/Time Source Procedure Growth Status 11/28/24 09:07 Urine - Catheterized Urine Culture - Final Citrobacter koseri Complete 11/28/24 08:07 Blood Blood Culture - Final Citrobacter koseri Complete Labs and/or images reviewed: Labs reviewed by me, Image(s) reviewed by me Assessment/Plan Assessment/Plan Impression: -sepsis secondary to complicated cystitis -complicated cystitis -history of prostate cancer -acute hypoxic respiratory failure -obesity -atrial fibrillation with rapid ventricular rate -primary hypertension -questionable RV failure, probably secondary to previous [place] -hematuria, anemia, pernicious drop in hematocrit -CKD stage IIIB -acute coronary syndrome Plan: -events: AFib now controlled. Patient reporting chest pressure. Also reports has a significant history of CABG, post CABG stents, with recurrent occlusions as well as collateral circulation development. -cardiology consultation -start low-dose Imdur -magnesium replacement -add Cardizem extended release for rate control -PT consultation -continue cefepime -blood and urine cultures -start IV hydration -continue rate control with amiodarone -continue anticoagulation with Eliquis. Continue to monitor H&H for worsening anemia -repeat labs in a.m. Total time spent with patient discussing and formulating plan of care: 35 minutes. This medical document was created using an electronic medical record system with [employer] dictation system. Although this document has been carefully reviewed, there may still be some phonetic and typographical errors. These areas are purely typographical due to imperfections of the software programs, and do not reflect any compromise in the patient's medical care. Plan discussed with: Patient, Other (RN) My Orders Orders - JESSICA HINES NP Procedure Category Date Status Time Diltiazem Er Capsule PHA 12/03/24 In Process (Cardizem Er Capsul 10:00 Magnesium Oxide PHA 12/03/24 In Process Tablet (Mag-Ox Tablet) 10:00 Guaifenesin-Dextromet PHA 12/03/24 In Process Liquid (Robitussin 09:15 Isosorbide PHA 12/03/24 In Process Mononitrate Tablet 10:00 Chest Xray 1 View XY 12/03/24 Verified 09:32 * Cardiology Consult CONS 12/03/24 Verified 09:32 Date of Service: December 03, 2024 Billing Provider: JESSICA HINES NP Common Visit Codes: [id number] INP/OBS CARE(HIGH) JESSICA HINES NP December 03, 2024 09:42
--- NOTE | 2024-12-03 12:24 | DVH ---
CHEST RADIOGRAPH Indication: pna Technique: Single frontal view of the chest was obtained Comparison: XY CHEST PORTABLE on DOS: 11/28/24, XY CHEST PORTABLE on DOS: 12/06/23, CHEST PORTABLE on DO S: 07/04/22, CXRP on DOS: 07/04/22 FINDINGS: Lines and Tubes: None Lungs: No focal consolidation. Pleura: No effusion. No pneumothorax. Cardiomediastinal contours: Unremarkable Bones: Median sternotomy. IMPRESSION: No acute cardiopulmonary disease.
--- NOTE | 2024-12-03 13:24 | DVHINCON2 ---
VASYL WORTHINGTON [facility] 12/03/24 1324: Date Seen: December 03, 2024 Referring Physician WILBUR Santiago Reason for Consultation CAD with history of CABG, coronary stents, current ACS History of Present Illness This is a 79-year-old man who presented to the emergency room via EMS with a chief complaint of shortness of breath. The patient initially presented with complaints of shortness of breath associated with bilateral lower extremity edema. 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 he also developed complaints of chest pain described as substernal, tightness like, radiating to his left upper extremity, and intermittent in nature. Has been medicated with NTG SL and morphine IV with mild relief of symptoms. Reports undergoing a recent cardiac catheterization and coronary angiogram at [facility] on 06/08/2024. Reports that at that time he was told his grafts and drug eluding stents were closing with no intervention needed as he had some collateral flow. 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 Significant medical history includes severe coronary artery disease status post five-vessel CABG (2006) status post multiple PTCAs including 6 BASIA, paroxysmal atrial fibrillation on Eliquis/amiodarone/digoxin therapy, history of left atrial appendage thrombus, dyslipidemia, type 2 diabetes mellitus, history of prostate cancer with radiation therapy latest on 07/29/2024, chronic kidney disease, and obesity. Past Medical History Past medical history reviewed. No other significant than mentioned above. Past Surgical History Five-vessel CABG, 2006 Multiple PTCAs including six BASIA Family History: Cancer G8 SISTER Family history: Cardiovascular disease G8 MOTHER G8 FATHER Family history: Diabetes mellitus G8 MOTHER Family History Family history reviewed. Social History Denies the use of illicit drugs, alcohol, or tobacco use. Allergies: Coded Allergies: Atorvastatin (Unverified Allergy, Unknown, 03/11/15) Clindamycin (Verified Allergy, Unknown, 07/05/22) Niacin (Unverified Allergy, Unknown, 03/11/15) Home Meds Active Scripts Amiodarone Hcl (Amiodarone Hcl) 200 Mg Tab, 1 TAB PO DAILY, #30 TAB 5 Refills Prov:CHRISTOPHER LYNN MD 12/10/23 Amiodarone Hcl (Amiodarone Hcl) 200 Mg Tab, 1 TAB PO DAILY, #30 TAB 5 Refills Prov:CHRISTOPHER LYNN MD 12/10/23 Apixaban Base (ELIQUIS) 5 Mg Tab, 5 MG PO BID for 30 Days, #60 TAB Prov:MARY KAY SAUL MD 07/10/22 Digoxin (Digoxin) 125 Mcg Tab, 125 MCG PO DAILY for 30 Days, #30 TAB Prov:MARY KAY SAUL MD 07/10/22 Tamsulosin Hcl (Tamsulosin Hcl) 0.4 Mg Cap, 0.4 MG PO HS for 30 Days, CAP Prov:MARY KAY SAUL MD 07/10/22 Reported Medications Rosuvastatin Calcium (Crestor) 40 Mg Tab, 1 TAB PO DAILY, #30 TAB 5 Refills 03/11/15 Home Meds Home medications reviewed. Current Medications Current Medications Medications (Trade) Dose Ordered Sig/Mustapha Route PRN Reason Start Time Stop Time Status Last Admin Amiodarone HCl (Cordarone Tablet) 200 mg Q12HR PO 12/02/24 22:00 12/03/24 08:30 Diltiazem HCl (Cardizem ER Capsule) 120 mg DAILY PO 12/03/24 10:00 12/03/24 09:28 Magnesium Oxide (Mag-Ox Tablet) 800 mg DAILY PO 12/03/24 10:00 12/03/24 09:27 Guaifenesin/ Dextromethorphan (Robitussin-Dm Liquid) 10 ml Q4HP PRN PO FOR COUGH 12/03/24 09:15 12/03/24 09:27 Isosorbide Mononitrate (Imdur Er Tablet) 30 mg DAILY PO 12/03/24 10:00 12/03/24 09:28 Apixaban (Eliquis) 2.5 mg BID PO 12/03/24 22:00 Review of Systems Constitutional: No symptom reported Ears, Nose, & Throat: No symptom reported Eyes: No symptom reported Neurological: No symptoms reported Pulmonary/Respiratory: SOB Cardiovascular: Chest pain Gastrointestinal: No symptom reported Genitourinary: No symptom reported Musculoskeletal: No symptom reported Skin: No symptom reported Psychiatric: No symptom reported Endocrine: No symptom reported Hemotologic/Lymphatic: No symptom reported Vital Signs Vital Signs Date Time Temp Pulse Resp B/P (MAP) Pulse Ox O2 Delivery O2 Flow Rate FiO2 12/03/24 12:00 84 30 112/64 (80) 99 12/03/24 11:47 Nasal Cannula* 2 28 12/03/24 11:45 98.0 98.0 Physical Exam General Appearance: Cooperative. Lethargic. Pale. Obese. In no acute distress Head Exam: Normal inspection Neck Exam: Normal inspection. Non-tender. Normal alignment Pulmonary/Respiratory: Chest non-tender. Clear bilateral breath sounds Cardiovascular/Chest: Irregularly irregular rate and rhythm. AFib, controlled rate. No murmurs. No JVD. Peripheral Pulses: 2+ Radial (R). 2+ Radial (L). 2+ Pedal (R). 2+ Pedal (L) Abdominal Exam: Normal bowel sounds. Soft. Ankle Exam: Negative ankle edema Lower extremities: Negative lower extremity edema Neuro/Mental Status: A&O x4. Coherent Thoughts/Psych: Normal thought pattern. Appropriate mood and affect. Appearance: In no acute distress Skin Exam: Pale color. Warm. Dry. See wound care pictures Labs/Diagnostic Data Labs Test 12/03/24 11:22 12/03/24 05:25 12/01/24 05:08 11/30/24 04:44 Range/Units POC Glucose 186 H 70-106 mg/dl White Blood Count 5.7 # 4.4-10.8 10^3/uL Red Blood Count 3.05 L 4.5-5.90 10^6/uL Hemoglobin 8.4 L 13.5-17.5 g/dL Hematocrit 25.6 L 41.0-53.0 % Mean Corpuscular Volume 84.1 80.0-100.0 fL Mean Corpuscular Hemoglobin 27.5 L 28.0-32.0 pg Mean Corpuscular Hemoglobin Concent 32.7 32.0-36.0 g/dL Red Cell Distribution Width 17.5 H 11.8-14.3 % Platelet Count 213 140-450 10^3/uL Mean Platelet Volume 7.3 6.9-10.8 fL Neutrophils (%) (Auto) 78.3 37.0-80.0 % Lymphocytes (%) (Auto) 5.4 L 10.0-50.0 % Monocytes (%) (Auto) 12.7 H 0.0-12.0 % Eosinophils (%) (Auto) 3.0 0.0-7.0 % Basophils (%) (Auto) 0.6 0.0-2.0 % Neutrophils # (Auto) 4.5 1.6-8.6 10 ^3/uL Lymphocytes # (Auto) 0.3 L 0.4-5.4 10 ^3/uL Monocytes # (Auto) 0.7 0-1.3 10 ^3/uL Eosinophils # (Auto) 0.2 0-0.8 10 ^3/uL Basophils # (Auto) 0 0-0.2 10 ^3/uL Nucleated Red Blood Cells 0.2 % Sodium Level 136 136-145 mmol/L Potassium Level 4.1 3.5-5.1 mmol/L Chloride Level 107 98-107 mmol/L Carbon Dioxide Level 19 L 20-31 mmol/L Anion Gap 10 5-15 Blood Urea Nitrogen 14 9-23 mg/dL Creatinine 1.49 H 0.700-1.30 mg/dL Glomerular Filtration Rate Calc 48 >90 mL/min BUN/Creatinine Ratio 9.4 L 10.0-20.0 Serum Glucose 142 H 74-106 mg/dL Calcium Level 9.1 8.7-10.4 mg/dL Phosphorus Level 3.3 2.4-5.1 mg/dL Magnesium Level 1.4 L 1.6-2.6 mg/dL Iron Level 16 L 65-175 ug/dL Total Iron Binding Capacity 208 L 250-425 ug/dL Percent Iron Saturation 7.7 L 20-55 % Free Prostate Specific Antigen <0.02 N/A ng/mL Percent Free Prostate Specific Ag <10.0 . % Prostate Specific Antigen Total 0.2 0.0-4.0 ng/mL Vitamin B12 Level 580 211-911 pg/mL Test 11/29/24 05:49 11/28/24 16:30 11/28/24 14:36 11/28/24 10:53 Range/Units Total Bilirubin 0.3 0.2-1.0 mg/dL Aspartate Amino Transferase (AST) 10 L 13-40 U/L Alanine Aminotransferase (ALT) < 9 7-40 U/L Alkaline Phosphatase 72 46-116 U/L Total Protein 6.2 5.7-8.2 g/dL Albumin 3.5 3.2-4.8 g/dL Random Vancomycin Level 6.8 5-10 ug/mL Lactic Acid Level 2.4 *H 0.4-2.0 mmol/L Influenza Type A Antigen Negative Negative Influenza Type B Antigen Negative Negative SARS-CoV-2 Antigen (Rapid) Negative NEGATIVE Troponin I High Sensitivity 42 </=54 ng/L Test 11/28/24 09:07 11/28/24 08:07 Range/Units Urine Color Colorless Yellow Urine Clarity Turbid H Clear Urine pH 5.0 5.0-9.0 Urine Specific [place] 1.011 1.001-1.035 Urine Protein 1+ H Negative Urine Ketones Negative Negative Urine Blood 3+ H Negative /uL Urine Nitrite Negative Negative Urine Bilirubin Negative Negative Urine Urobilinogen Normal Negative mg/dL Urine Leukocyte Esterase 3+ Negative /uL Urine RBC 243 0 - 3 /hpf Urine Microscopic WBC 127 H 0-3 /HPF Urine Squamous Epithelial Cells None seen <5 /hpf Urine Bacteria Few H None Seen /hpf Urine Glucose 4+ H Normal mg/dL B-Type Natriuretic Peptide 256.09 0-100 pg/mL Microbiology Date/Time Source Procedure Growth Status 11/28/24 09:07 Urine - Catheterized Urine Culture - Final Citrobacter koseri Complete 11/28/24 08:07 Blood Blood Culture - Final Citrobacter koseri Complete Assessment Acute coronary syndrome Progressive coronary artery disease status post five-vessel CABG and multiple PTCAs including 6 BASIA (off antiplatelet therapy) Probable paroxysmal atrial fibrillation, stage III, controlled rate (on Eliquis, amiodarone, digoxin therapy) Sepsis with complicated cystitis HX of prostate cancer with radiation Acute anemia status post transfusion rule out GI bleed Dyslipidemia CKD stage IIIB Plan/Recommendation (Dr. Guzmán) Case discussed with Dr. Guzmán. A transthoracic echocardiogram revealed a LVEF of 55-60% with grade 2 diastolic dysfunction and a dilated RV with impaired systolic function. Obtain medical records from [facility] given recent cardiac catheterization and coronary angiogram completed on 06/08/2024. Reports progressive coronary artery disease including closing grafts and in stent restenosis to drug-eluding stents with collateral flow. The patient with acute anemia and blood transfusion is not a candidate for invasive cardiac procedures at this time. Eliquis dose reduce to 2.5 mg BID. Obtain a FOBT to rule out GI bleed. Resume single-antiplatelet therapy if not contraindicated. Continue lipid-lowering agent. Continue Cardizem, magnesium, and amiodarone therapy for rate control. Resume digoxin therapy in the setting of continuous rapid a-fib events. Monitor H&H closely and transfuse as necessary. Further orders per clinical course. Poor prognosis. Thank you for allowing us to participate in this patient's care. Please call if you have any questions or concerns. This medical document was created using an electronic medical record system with voice recognition software and computerized dictation system. Although this document has been carefully reviewed, there might still be some phonetic and typographical errors. Occasional wrong-word or ``sound-alike substitutions may have occurred due to the inherent limitations of voice recognition software. These areas are purely typographical due to imperfections of the software programs and do not reflect any compromise in the patient's medical care. Please read the chart carefully and recognize, using context, where these substitutions have occurred. Plan discussed with: Patient, Spouse, Other NYHA Physical activity limitations: NA Date of Service: December 03, 2024 Billing Provider: VASYL WORTHINGTON [facility] Cardiology Common Codes: [id number] INP/OBS CARE (High) JULIANE GUZMÁN MD 12/03/24 1356: Family History: Cancer G8 SISTER Family history: Cardiovascular disease G8 MOTHER G8 FATHER Family history: Diabetes mellitus G8 MOTHER Allergies: Coded Allergies: Atorvastatin (Unverified Allergy, Unknown, 03/11/15) Clindamycin (Verified Allergy, Unknown, 07/05/22) Niacin (Unverified Allergy, Unknown, 03/11/15) Home Meds Active Scripts Amiodarone Hcl (Amiodarone Hcl) 200 Mg Tab, 1 TAB PO DAILY, #30 TAB 5 Refills Prov:CHRISTOPHER LYNN MD 12/10/23 Amiodarone Hcl (Amiodarone Hcl) 200 Mg Tab, 1 TAB PO DAILY, #30 TAB 5 Refills Prov:CHRISTOPHER LYNN MD 12/10/23 Apixaban Base (ELIQUIS) 5 Mg Tab, 5 MG PO BID for 30 Days, #60 TAB Prov:MARY KAY SAUL MD 07/10/22 Digoxin (Digoxin) 125 Mcg Tab, 125 MCG PO DAILY for 30 Days, #30 TAB Prov:MARY KAY SAUL MD 07/10/22 Tamsulosin Hcl (Tamsulosin Hcl) 0.4 Mg Cap, 0.4 MG PO HS for 30 Days, CAP Prov:MARY KAY SAUL MD 07/10/22 Reported Medications Rosuvastatin Calcium (Crestor) 40 Mg Tab, 1 TAB PO DAILY, #30 TAB 5 Refills 03/11/15 Plan/Recommendation 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
[2024-12-03] MEDS: APIXABAN 5 MG TAB PO SCH (21:07)
[2024-12-04] VITALS (63 sets, daily range): BP systolic 88–123; BP diastolic 43–64; PULSE 65–86; RESP 13–30; TEMP 98.3–99.2; O2SAT 89–100
[2024-12-04 06:45] LABS: Hemoglobin 7.3 g/dL (13.5-17.5); White Blood Cell 5.9 10^3/uL (4.4-10.8)
[2024-12-04 06:47] LABS: Hematocrit 22.2 % (41.0-53.0); Mean Corpuscular Hemoglobin 27.5 pg (28.0-32.0); Mean Corpuscular Volume 83.3 fL (80.0-100.0); Platelet Count (auto) 229 10^3/uL (140-450); Red Blood Cells 2.67 10^6/uL (4.5-5.90); Red Cell Distribution Width 17.2 % (11.8-14.3)
[2024-12-04 07:01] LABS: Anion Gap 9 (5-15); Carbon Dioxide 21 mmol/L (20-31); Chloride 104 mmol/L (98-107); Potassium 4.1 mmol/L (3.5-5.1)
[2024-12-04 07:05] LABS: Band Neutrophils % (manual) 0; Basophils % (manual) 0 (0.0-2.0); Blast Cells 0; Promyelocytes % 0; Reactive Lymphocytes 0
[2024-12-04 07:07] LABS: BUN/Creatinine Ratio 9.8 (10.0-20.0); Blood Urea Nitrogen 15 mg/dL (9-23); Calcium 8.3 mg/dL (8.7-10.4); Glucose 142 mg/dL (74-106); Sodium 134 mmol/L (136-145)
[2024-12-04 07:09] LABS: Magnesium 1.5 mg/dL (1.6-2.6)
--- NOTE | 2024-12-04 08:54 | DVHPN2 ---
Subjective Patient states that he feels better than yesterday. Reviewed: Care Plan, H&P, Labs, Medications Changes from previous H/P or p: No Changes General: Per HPI Eyes: No Pain, No Vision change, No Conjunctivae inflammation, No Eyelid inflammation, No Other, No Redness ENT: No Ear pain, No Ear discharge, No Nose pain, No Nose discharge, No Nose congestion, No Mouth pain, No Mouth swelling, No Throat pain, No Throat swelling, No Other Cardiovascular: No Chest Pain, No Palpitations, No Orthopnea, No Paroxysmal Noc. Dyspnea, No Edema, No Lt Headedness, No Other Respiratory: No Cough, No Dry, No Shortness of breath, No SOB with excertion, No Wheezing, No Hemoptysis, No Pleuritic Pain, No Sputum, No Other Gastrointestinal: No Nausea, No Vomiting, No Abdominal Pain, No Diarrhea, No Constipation, No Melena, No Hematochezia, No Other Genitourinary: No Dysuria, No Frequency, No Incontinence, No Hematuria; R etention, Other (penial pain) Musculoskeletal: No other, No neck pain, No shoulder pain, No arm pain, No back pain, No hand pain, No leg pain, No foot pain Skin: No Rash, No Lesions, No Jaundice, No Bruising, No Other Objective Vitals Vital Signs Date Time Temp Pulse Resp B/P (MAP) Pulse Ox O2 Delivery O2 Flow Rate FiO2 12/04/24 07:40 19 98 Nasal Cannula* 2 28 12/04/24 07:40 75 12/04/24 07:30 111/63 (79) 12/04/24 04:00 98.7 98.7 Intake/Output Intake and Output 12/04/24 07:00 Intake Total 1220 ml Output Total 2150 ml Balance -930 ml Intake Oral 500 ml Tube Feeding 720 ml Output Urine Total 2150 ml General Appearance: Alert, Oriented X3, Cooperative HEENT: Atraumatic, PERRLA Lungs: Clear to auscultation, Normal air movement Cardiovascular: Normal S1, Normal S2 Genitourinary: No Apparent Abnormalities (Baker catheterization) Musculoskeletal: Normal sensory function, Normal motor function Skin: Dry, Intact Psych/Mental Status: Mental status NL, Mood NL Medications Current Medications Medications Dose Ordered Sig/Mustapha Route Start Time Stop Time Status Last Admin Dose Admin Acetaminophen/ Hydrocodone Bitart 1 tab Q4HP PRN PO 11/28/24 12:15 11/29/24 10:39 1 TAB Ondansetron HCl 4 mg Q4HP PRN IV 11/28/24 12:15 Acetaminophen 650 mg Q6HP PRN PO 11/28/24 12:15 Morphine Sulfate 2 mg Q4HPRN PRN IV 11/28/24 12:15 Nitroglycerin 0.4 mg Q5MINP PRN SL 11/28/24 12:15 12/01/24 20:47 0.4 MG Diagnostic Test (Pha) 1 strip ACHS 11/28/24 17:00 12/04/24 06:20 1 STRIP Insulin Human Regular HS SC 11/28/24 22:00 12/03/24 21:16 3 UNITS Insulin Human Regular AC SC 11/28/24 17:00 12/04/24 06:20 2 UNITS Dextrose 50 ml UD PRN IV 11/28/24 12:15 Tamsulosin HCl 0.4 mg HS PO 11/28/24 22:00 12/03/24 21:01 0.4 MG Patient Own Medication 1 tab DAILY PO 11/29/24 10:00 Cefepime HCl 50 ml @ 12.5 mls/hr Q12HR IV 11/28/24 22:00 12/03/24 21:02 12.5 MLS/HR Levalbuterol HCl 0.625 mg Q6HR NEB 11/30/24 12:00 12/04/24 06:13 0.625 MG Ipratropium [place] 0.5 mg Q6HR NEB 11/30/24 12:00 12/04/24 06:13 0.5 MG Amiodarone HCl 200 mg Q12HR PO 12/02/24 22:00 12/03/24 21:01 200 MG Diltiazem HCl 120 mg DAILY PO 12/03/24 10:00 12/03/24 09:28 120 MG Magnesium Oxide 800 mg DAILY PO 12/03/24 10:00 12/03/24 09:27 800 MG Guaifenesin/ Dextromethorphan 10 ml Q4HP PRN PO 12/03/24 09:15 12/04/24 05:25 10 ML Isosorbide Mononitrate 30 mg DAILY PO 12/03/24 10:00 12/03/24 09:28 30 MG Apixaban 2.5 mg BID PO 12/03/24 22:00 12/03/24 21:07 2.5 MG Laboratory Results Laboratory Tests 12/04/24 05:17 Chemistry Test 12/04/24 05:17 Calcium Level 8.3 mg/dL (8.7-10.4) L Magnesium Level 1.5 mg/dL (1.6-2.6) L Urinalysis Test 11/28/24 09:07 Urine Color Colorless (Yellow) Urine Clarity Turbid (Clear) H Urine pH 5.0 (5.0-9.0) Urine Specific [place] 1.011 (1.001-1.035) Urine Protein 1+ (Negative) H Urine Ketones Negative (Negative) Urine Blood 3+ /uL (Negative) H Urine Nitrite Negative (Negative) Urine Bilirubin Negative (Negative) Urine Urobilinogen Normal mg/dL (Negative) Urine Leukocyte Esterase 3+ /uL (Negative) Urine RBC 243 /hpf (0 - 3) Urine Microscopic WBC 127 /HPF (0-3) H Urine Squamous Epithelial Cells None seen /hpf (<5) Urine Bacteria Few /hpf (None Seen) H Urine Glucose 4+ mg/dL (Normal) H Microbiology Microbiology Date/Time Source Procedure Growth Status 11/28/24 09:07 Urine - Catheterized Urine Culture - Final Citrobacter koseri Complete 11/28/24 08:07 Blood Blood Culture - Final Citrobacter koseri Complete Labs and/or images reviewed: Labs reviewed by me, Image(s) reviewed by me Assessment/Plan Assessment/Plan Impression: -sepsis secondary to complicated cystitis -complicated cystitis -history of prostate cancer -acute hypoxic respiratory failure -obesity -atrial fibrillation with rapid ventricular rate -primary hypertension -questionable RV failure, probably secondary to previous PR -hematuria, anemia, pernicious drop in hematocrit -CKD stage IIIB -acute coronary syndrome Plan: -events: Patient continues to have subjective dyspnea. Severe deconditioning noted. Baseline activity level is poor according to . Blood pressure stable with Cardizem as well as Imdur. Proceed with transferring to telemetry. -weaned off of O2, room air ABG. Pulmonary consultation -cardiology consultation : Recommendations reviewed -continue current rate control with Cardizem -PT consultation -deescalate antibiotics to ciprofloxacin p.o. -urine culture reviewed -continue anticoagulation Eliquis. FOBT is currently pending. Continue Protonix. Start iron supplementation -repeat labs in a.m. Total time spent with patient discussing and formulating plan of care: 35 minutes. This medical document was created using an electronic medical record system with [employer] dictation system. Although this document has been carefully reviewed, there may still be some phonetic and typographical errors. These areas are purely typographical due to imperfections of the software programs, and do not reflect any compromise in the patient's medical care. Plan discussed with: Patient, Other (RN) My Orders Orders - JESSICA HINES NP Procedure Category Date Status Time Magnesium Oxide PHA 12/03/24 In Process Tablet (Mag-Ox Tablet) 10:00 Guaifenesin-Dextromet PHA 12/03/24 In Process Liquid (Robitussin 09:15 Isosorbide PHA 12/03/24 In Process Mononitrate Tablet 10:00 Chest Xray 1 View XY 12/03/24 Resulted 09:32 * Cardiology Consult CONS 12/03/24 Transmitted 09:32 Complete Blood Count LAB 12/04/24 In Process 04:00 Manual Differential LAB 12/04/24 In Process 05:17 Abg W/ Co-Ox RT 12/04/24 Verified 08:47 *Consult CONS 12/04/24 Verified / 08:47 Pantoprazole Tablet PHA 12/04/24 Verified (Protonix Tablet) 09:00 Ferrous Sulfate Tablet PHA 12/04/24 Verified 18:00 Date of Service: December 04, 2024 Billing Provider: JESSICA HINES NP Common Visit Codes: [id number] INP/OBS CARE(HIGH) JESSICA HINES NP December 04, 2024 08:54
[2024-12-04] MEDS: PANTOPRAZOLE 40 MG TAB PO SCH (08:56)
[2024-12-04 09:08] LABS: Anisocytosis Slight; Eosinophils % (manual) 3 (0-7); Lymphocytes % (manual) 6 (10.0-50.0); Metamyelocytes % 1; Monocytes % (manual) 12 (0-12); Myelocytes % 1; Platelet Estimate Adequate
[2024-12-04 09:18] LABS: Base Excess -1.9 mmol/L (-2.0-3.0)
[2024-12-04] MEDS: APIXABAN 2.5 MG TAB PO SCH (09:44)
--- NOTE | 2024-12-04 10:01 | ECG ---
[facility] Test Date: 2024-12-01 Test Time: 20:52:39 Pat Name: YESENIA BARRAZA Department: Room: 0261D A Gender: M Change Analyst: CLAUDIA : 1945 Requested By: ALIYAH VAZQUEZ Order Number: [id number] Reading MD: Ryan Keating Measurements Intervals [place] Rate: 141 P: 0 OK: 0 QRS: 257 QRSD: 153 T: 43 QT: 344 QTc: 527 Interpretive Statements Junctional tachycardia Nonspecific IVCD with LAD Electronically Signed On 12-05-2024 11:57:22 PDT by Ryan Keating Please click the below link to view image of tracing.
--- NOTE | 2024-12-04 10:58 | DVHPN2 ---
Consult Progress Note Date Seen: December 04, 2024 Subjective Review of Systems: CVS:Normal, RESPIRATORY:Normal, NEURO:Normal Objective vital signs Vital Sign Date Time Temp Pulse Resp B/P (MAP) Pulse Ox O2 Delivery O2 Flow Rate FiO2 12/04/24 10:00 76 30 103/53 (70) 96 12/04/24 09:41 Room Air 0.0 12/04/24 09:41 21 12/04/24 08:00 99.2 99.2 Total Intake and Output 12/03/24 12/03/24 12/04/24 15:00 23:00 07:00 Intake Total 500 ml 720 ml Output Total 1150 ml 1000 ml Balance -650 ml -280 ml medications Current Medications Medications Dose Ordered Sig/Mustapha Route Start Time Stop Time Status Last Admin Dose Admin Acetaminophen/ Hydrocodone Bitart 1 tab Q4HP PRN PO 11/28/24 12:15 11/29/24 10:39 1 TAB Ondansetron HCl 4 mg Q4HP PRN IV 11/28/24 12:15 Acetaminophen 650 mg Q6HP PRN PO 11/28/24 12:15 Morphine Sulfate 2 mg Q4HPRN PRN IV 11/28/24 12:15 Nitroglycerin 0.4 mg Q5MINP PRN SL 11/28/24 12:15 12/01/24 20:47 0.4 MG Diagnostic Test (Pha) 1 strip ACHS 11/28/24 17:00 12/04/24 06:20 1 STRIP Insulin Human Regular HS SC 11/28/24 22:00 12/03/24 21:16 3 UNITS Insulin Human Regular AC SC 11/28/24 17:00 12/04/24 06:20 2 UNITS Dextrose 50 ml UD PRN IV 11/28/24 12:15 Tamsulosin HCl 0.4 mg HS PO 11/28/24 22:00 12/03/24 21:01 0.4 MG Patient Own Medication 1 tab DAILY PO 11/29/24 10:00 Levalbuterol HCl 0.625 mg Q6HR NEB 11/30/24 12:00 12/04/24 06:13 0.625 MG Ipratropium [place] 0.5 mg Q6HR NEB 11/30/24 12:00 12/04/24 06:13 0.5 MG Amiodarone HCl 200 mg Q12HR PO 12/02/24 22:00 12/04/24 09:01 200 MG Diltiazem HCl 120 mg DAILY PO 12/03/24 10:00 12/04/24 09:11 120 MG Magnesium Oxide 800 mg DAILY PO 12/03/24 10:00 12/04/24 08:56 800 MG Guaifenesin/ Dextromethorphan 10 ml Q4HP PRN PO 12/03/24 09:15 12/04/24 05:25 10 ML Isosorbide Mononitrate 30 mg DAILY PO 12/03/24 10:00 12/04/24 08:57 30 MG Pantoprazole Sodium 40 mg DAILY@0600 PO 12/04/24 08:52 12/04/24 08:56 40 MG Ferrous Sulfate 325 mg BIDWM PO 12/04/24 18:00 Apixaban 2.5 mg BID PO 12/04/24 10:00 12/04/24 09:44 2.5 MG Examination: GENERAL:Abnormal (Pale), LUNGS:Normal, CVS:Normal (A-fib controlled rate. No further tachyarrhythmias on monitor), NEURO:Normal laboratory and microbiology Laboratory Tests 12/04/24 05:17 Test 12/04/24 05:17 Range/Units Serum Glucose 142 H 74-106 mg/dL Problem List/Assessment/Plan Problem List/Assessment/Plan Acute coronary syndrome in the setting of progressive CAD and acute anemia Progressive coronary artery disease status post five-vessel CABG and multiple PTCAs including 6 BASIA (off antiplatelet therapy) Probable paroxysmal atrial fibrillation, stage III, controlled rate (on Eliquis, amiodarone, digoxin therapy) Sepsis with complicated cystitis HX of prostate cancer with radiation Acute anemia status post transfusion rule out GI bleed Dyslipidemia CKD stage IIIB Plan/Recommendation (Dr. Chung) A transthoracic echocardiogram revealed a LVEF of 55-60% with grade 2 diastolic dysfunction and a dilated RV with impaired systolic function. Obtain medical records from [facility] given recent cardiac catheterization and coronary angiogram completed on 06/08/2024. Reports progressive coronary artery disease including closing of grafts and in stent restenosis to drug-eluding stents with collateral flow. We recommend conservative management given acute anemia requiring blood transfusion. Not a candidate for invasive cardiac procedures at this time. Eliquis dose reduce to 2.5 mg BID. Obtain a FOBT to rule out GI bleed. Eventually resume single-antiplatelet therapy if not contraindicated. Continue lipid-lowering agent. Continue Cardizem, magnesium, and amiodarone therapy for rate control. Monitor H&H closely and transfuse as necessary for a goal Hgb level > 8.0. Further orders per clinical course. Poor prognosis. Thank you for allowing us to participate in this patient's care. Please call if you have any questions or concerns. Critical care time: 30 min. This medical document was created using an electronic medical record system with voice recognition software and computerized dictation system. Although this document has been carefully reviewed, there might still be some phonetic and typographical errors. Occasional wrong-word or ``sound-alike substitutions may have occurred due to the inherent limitations of voice recognition software. These areas are purely typographical due to imperfections of the software programs and do not reflect any compromise in the patient's medical care. Please read the chart carefully and recognize, using context, where these substitutions have occurred. Plan discussed with: Patient, Other Date of Service: December 04, 2024 Billing Provider: VASYL WORTHINGTON Cardiology Common Codes: [id number] CARE 30-74 MIN VASYL WORTHINGTON December 04, 2024 10:58
[2024-12-04] MEDS: CEFPODOXIME PROXETIL 200 MG TAB PO SCH (11:43)
[2024-12-04] MEDS: MAGNESIUM SULFATE 1GM/100ML 100 ML IV ONE (12:05)
[2024-12-04] MEDS: FERROUS SULFATE 325mg EC TAB PO SCH (16:59)
[2024-12-04 18:18] LABS: Hematocrit 17.3 % (41.0-53.0); Hemoglobin 8.4 g/dL (13.5-17.5)
--- NOTE | 2024-12-04 20:26 | DVHPN2 ---
Progress Note - Dictate Date Seen: December 04, 2024 Medical Necessity Reason Pt with a Central, PICC or Fol: Yes The following are medically ne: Curry Catheter Reason for curry catheter: Strict I&O Subjective Patient seen and examined at bedside. Remains on supplemental oxygen Overnight events reviewed. History of Present Illness: A 79-year-old man with past medical history of prostate cancer, atrial fibrillation, CHF, hypertension, hyperlipidemia, diabetes, and DC who presented to ED on 11/28/24 due to penile pain. Patient had just gotten out of the shower, was putting on his underwear when he felt a pull and then a pop with his Curry catheter. He then had a burning pain in his penis and there was no urine draining from the catheter, thus presented to ED. ER changed out the catheter and drained 700 ml yellow urine. He did have about 50 ml of hematuria at first which cleared up quickly. Pt also reported chronic shortness of breath and bilateral lower extremity edema. He reports he tried to get home oxygen but did not qualify. Patient was admitted for further care, and pulmonary consultation is requested for evaluation and management of acute hypoxic respiratory failure. Review of Systems: 14-point review of systems negative unless otherwise noted above. Past Medical History: Prostate cancer, atrial fibrillation, CHF, hypertension, hyperlipidemia, diabetes, and DC Past Surgical History: CABG (2006) Medications: Reviewed. Allergies: No known drug allergies. Family History: No family history of premature CAD. No family history of lung disorders. Social History: Nonsmoker. No alcohol or illicit drug use. vital signs Vital Sign Date Time Temp Pulse Resp B/P (MAP) Pulse Ox O2 Delivery O2 Flow Rate FiO2 12/04/24 18:58 76 18 100 12/04/24 18:48 Room Air 12/04/24 18:48 0 21 12/04/24 18:30 115/58 (77) 12/04/24 16:00 99.0 99.0 Total Intake and Output 12/03/24 12/03/24 12/04/24 15:00 23:00 07:00 Intake Total 500 ml 720 ml Output Total 1150 ml 1000 ml Balance -650 ml -280 ml medications Current Medications Medications Dose Ordered Sig/Mustapha Route Start Time Stop Time Status Last Admin Dose Admin Acetaminophen/ Hydrocodone Bitart 1 tab Q4HP PRN PO 11/28/24 12:15 11/29/24 10:39 1 TAB Ondansetron HCl 4 mg Q4HP PRN IV 11/28/24 12:15 Acetaminophen 650 mg Q6HP PRN PO 11/28/24 12:15 Morphine Sulfate 2 mg Q4HPRN PRN IV 11/28/24 12:15 Nitroglycerin 0.4 mg Q5MINP PRN SL 11/28/24 12:15 12/01/24 20:47 0.4 MG Diagnostic Test (Pha) 1 strip ACHS 11/28/24 17:00 12/04/24 16:57 1 STRIP Insulin Human Regular HS SC 11/28/24 22:00 12/03/24 21:16 3 UNITS Insulin Human Regular AC SC 11/28/24 17:00 12/04/24 16:57 2 UNITS Dextrose 50 ml UD PRN IV 11/28/24 12:15 Tamsulosin HCl 0.4 mg HS PO 11/28/24 22:00 12/03/24 21:01 0.4 MG Patient Own Medication 1 tab DAILY PO 11/29/24 10:00 Levalbuterol HCl 0.625 mg Q6HR NEB 11/30/24 12:00 12/04/24 18:48 0.625 MG Ipratropium [place] 0.5 mg Q6HR NEB 11/30/24 12:00 12/04/24 18:48 0.5 MG Amiodarone HCl 200 mg Q12HR PO 12/02/24 22:00 12/04/24 09:01 200 MG Diltiazem HCl 120 mg DAILY PO 12/03/24 10:00 12/04/24 09:11 120 MG Magnesium Oxide 800 mg DAILY PO 12/03/24 10:00 12/04/24 08:56 800 MG Guaifenesin/ Dextromethorphan 10 ml Q4HP PRN PO 12/03/24 09:15 12/04/24 05:25 10 ML Isosorbide Mononitrate 30 mg DAILY PO 12/03/24 10:00 12/04/24 08:57 30 MG Pantoprazole Sodium 40 mg DAILY@0600 PO 12/04/24 08:52 12/04/24 08:56 40 MG Ferrous Sulfate 325 mg BIDWM PO 12/04/24 18:00 12/04/24 16:59 325 MG Apixaban 2.5 mg BID PO 12/04/24 10:00 12/04/24 09:44 2.5 MG Cefpodoxime Proxetil 200 mg Q12H PO 12/04/24 11:00 12/04/24 11:43 200 MG objective Gen.: Patient lying in bed in no apparent distress. On supplemental oxygen. Head: Normocephalic, atraumatic. Eyes: EOMI/PERRLA. Ears: Normal hearing. Normal anatomy. Neck/trachea: Trachea midline, supple. Nose: Normal external anatomy. Mouth: Moist mucous membranes. Chest: Decreased air entry bilaterally. No wheezing or rhonchi. Cardiovascular: Positive S1, positive S2. Regular rate and rhythm. Abdomen: Positive bowel sounds in all 4 quadrants. Soft, non-tender, non- distended. : Deferred. Rectal: Deferred. Skin: Warm, dry. Intact. Extremities: 2+ radial pulses bilaterally. No lower extremity edema. Neuro: Awake, alert, oriented x3. No gross motor or sensory deficits. Cranial nerves II through XII intact. Gait not assessed. laboratory and microbiology Laboratory Tests 12/04/24 18:10 12/04/24 05:17 Test 12/04/24 05:17 Range/Units Serum Glucose 142 H 74-106 mg/dL Assessment/Plan Impression: Acute hypoxic respiratory failure Dependence on supplemental oxygen Sepsis 2/2 cystitis Atrial fibrillation with rapid ventricular response Congestive heart failure, diastolic Obesity Anemia Events: Remains on supplemental oxygen, 2 LPM NC Taper O2 as tolerated Now on room air. CXR no acute opacities. Amio drip for AFib with RVR -transitioned to amiodarone PO Eliquis BID Hgb decreased to 7.3 g/dL Transfused 1 unit of pRBC. Continue antibiotics Amiodarone drip Lovenox for DVT prophylaxis Cardiology recommendations appreciated. Monitor renal function. Creat 1.53 Labs and imaging reviewed. Rest of plan as noted below. Plan: Supplemental oxygen Titrate to keep O2 sats above 92%. Continue bronchodilators. Continue antibiotics Cardiology recs appreciated Monitor hemoglobin Eliquis BID Accu-Cheks, ISS. Monitor renal function. Monitor electrolytes. Supplement as necessary. Monitor ins and outs. DVT prophylaxis Prognosis: Poor given patient's multiple co-morbidities. Rest of plan per hospitalist and other consultants. Thank you for allowing me to participate in this patient's care. Further recommendations will depend on the patient's clinical course. Please do not hesitate to contact me if you have any questions or concerns. This medical document was created using an electronic medical record system with [facility] ([employer] dictation system. Although these documentations are being carefully reviewed, there may still be some phonetic and typographical changes. The errors are purely typographical, due to imperfection on the software program, and do not reflect any compromise in the patient's medical care. Plan discussed with: Other (DAYA Brown) LOKESH HERMAN MD December 04, 2024 20:26
[2024-12-04 23:06] LABS: Vitamin D 25-Hydroxy 19 ng/mL (.); Vitamin D-2 25-Hydroxy <1.0 ng/mL (.); Vitamin D-3 25-Hydroxy 19 ng/mL (.)
[2024-12-05] VITALS (46 sets, daily range): BP systolic 85–125; BP diastolic 31–69; PULSE 69–90; RESP 13–39; TEMP 97.7–99.3; O2SAT 87–100
--- NOTE | 2024-12-05 05:10 | DVH ---
EXAM: XR Chest, 1 View CLINICAL INDICATION: Interval changes TECHNIQUE: Frontal view of the chest. COMPARISON: XY CHEST XRAY 1 VIEW on DOS: 12/03/24, XY CHEST PORTABLE on DOS: 11/28/24, XY CHEST PORTAB LE on DOS: 12/06/23, CHEST PORTABLE on DOS: 07/04/22, CXRP on DOS: 07/04/22 FINDINGS: LUNGS AND PLEURAL SPACES: See below. HEART: Cardiomegaly with mild congestion. MEDIASTINUM: Unremarkable. Normal mediastinal contour. BONES/JOINTS: Unremarkable. No acute fracture. OTHER FINDINGS: . IMPRESSION: Cardiomegaly with mild congestion.
[2024-12-05 05:30] LABS: Hemoglobin 8.6 g/dL (13.5-17.5)
[2024-12-05 05:33] LABS: Chloride 106 mmol/L (98-107); Potassium 4.2 mmol/L (3.5-5.1); Sodium 137 mmol/L (136-145)
[2024-12-05 05:34] LABS: Anion Gap 10 (5-15); Carbon Dioxide 21 mmol/L (20-31)
[2024-12-05 05:36] LABS: Hematocrit 25.8 % (41.0-53.0); Mean Corpuscular Hemoglobin 27.3 pg (28.0-32.0); Mean Corpuscular Hgb Conc. 33.4 g/dL (32.0-36.0); Mean Corpuscular Volume 81.7 fL (80.0-100.0); Platelet Count (auto) 266 10^3/uL (140-450); Red Blood Cells 3.16 10^6/uL (4.5-5.90); Red Cell Distribution Width 17.5 % (11.8-14.3); White Blood Cell 5.6 10^3/uL (4.4-10.8)
[2024-12-05 05:39] LABS: BUN/Creatinine Ratio 10.7 (10.0-20.0); Blood Urea Nitrogen 16 mg/dL (9-23)
[2024-12-05 05:40] LABS: Magnesium 1.9 mg/dL (1.6-2.6)
[2024-12-05 05:56] LABS: Band Neutrophils % (manual) 0; Basophils % (manual) 0 (0.0-2.0); Blast Cells 0; Metamyelocytes % 0; Myelocytes % 0; Promyelocytes % 0; Reactive Lymphocytes 0
[2024-12-05 05:59] LABS: Glucose 147 mg/dL (74-106)
[2024-12-05 06:57] LABS: Eosinophils % (manual) 2 (0-7); Lymphocytes % (manual) 11 (10.0-50.0); Monocytes % (manual) 4 (0-12)
[2024-12-05 06:58] LABS: Anisocytosis Slight; Platelet Estimate Adequate
--- NOTE | 2024-12-05 09:03 | DVHPN2 ---
Subjective Patient states that he feels better than yesterday. Reviewed: Care Plan, H&P, Labs, Medications Changes from previous H/P or p: No Changes General: Per HPI Eyes: No Pain, No Vision change, No Conjunctivae inflammation, No Eyelid inflammation, No Other, No Redness ENT: No Ear pain, No Ear discharge, No Nose pain, No Nose discharge, No Nose congestion, No Mouth pain, No Mouth swelling, No Throat pain, No Throat swelling, No Other Cardiovascular: No Chest Pain, No Palpitations, No Orthopnea, No Paroxysmal Noc. Dyspnea, No Edema, No Lt Headedness, No Other Respiratory: No Cough, No Dry, No Shortness of breath, No SOB with excertion, No Wheezing, No Hemoptysis, No Pleuritic Pain, No Sputum, No Other Gastrointestinal: No Nausea, No Vomiting, No Abdominal Pain, No Diarrhea, No Constipation, No Melena, No Hematochezia, No Other Genitourinary: No Dysuria, No Frequency, No Incontinence, No Hematuria; R etention, Other (penial pain) Musculoskeletal: No other, No neck pain, No shoulder pain, No arm pain, No back pain, No hand pain, No leg pain, No foot pain Skin: No Rash, No Lesions, No Jaundice, No Bruising, No Other Objective Vitals Vital Signs Date Time Temp Pulse Resp B/P (MAP) Pulse Ox O2 Delivery O2 Flow Rate FiO2 12/05/24 07:00 76 20 104/66 (79) 96 12/05/24 06:00 Room Air* 0 21 12/05/24 04:00 99.3 99.3 Intake/Output Intake and Output 12/05/24 07:00 Intake Total 1776 ml Output Total 2900 ml Balance -1124 ml Intake Oral 1476 ml Blood Product 300 ml Output Urine Total 2900 ml General Appearance: Alert, Oriented X3, Cooperative, No acute distress HEENT: Atraumatic, PERRLA Lungs: Clear to auscultation, Normal air movement Cardiovascular: Normal S1, Normal S2 Genitourinary: No Apparent Abnormalities (Baker catheterization) Musculoskeletal: Normal sensory function, Normal motor function Skin: Dry, Intact Psych/Mental Status: Mental status NL, Mood NL Medications Current Medications Medications Dose Ordered Sig/Mustapha Route Start Time Stop Time Status Last Admin Dose Admin Acetaminophen/ Hydrocodone Bitart 1 tab Q4HP PRN PO 5/7/25 12:15 11/29/24 10:39 1 TAB Ondansetron HCl 4 mg Q4HP PRN IV 11/28/24 12:15 Acetaminophen 650 mg Q6HP PRN PO 11/28/24 12:15 Morphine Sulfate 2 mg Q4HPRN PRN IV 11/28/24 12:15 Nitroglycerin 0.4 mg Q5MINP PRN SL 11/28/24 12:15 12/01/24 20:47 0.4 MG Diagnostic Test (Pha) 1 strip ACHS 11/28/24 17:00 12/05/24 06:18 1 STRIP Insulin Human Regular HS SC 11/28/24 22:00 12/04/24 21:49 3 UNITS Insulin Human Regular AC SC 11/28/24 17:00 12/05/24 06:19 2 UNITS Dextrose 50 ml UD PRN IV 11/28/24 12:15 Tamsulosin HCl 0.4 mg HS PO 11/28/24 22:00 12/04/24 21:46 0.4 MG Patient Own Medication 1 tab DAILY PO 11/29/24 10:00 Levalbuterol HCl 0.625 mg Q6HR NEB 11/30/24 12:00 12/05/24 06:21 0.625 MG Ipratropium [place] 0.5 mg Q6HR NEB 11/30/24 12:00 12/05/24 06:21 0.5 MG Amiodarone HCl 200 mg Q12HR PO 12/02/24 22:00 12/04/24 21:46 200 MG Diltiazem HCl 120 mg DAILY PO 12/03/24 10:00 12/04/24 09:11 120 MG Magnesium Oxide 800 mg DAILY PO 12/03/24 10:00 12/04/24 08:56 800 MG Guaifenesin/ Dextromethorphan 10 ml Q4HP PRN PO 12/03/24 09:15 12/05/24 05:38 10 ML Isosorbide Mononitrate 30 mg DAILY PO 12/03/24 10:00 12/04/24 08:57 30 MG Pantoprazole Sodium 40 mg DAILY@0600 PO 12/04/24 08:52 12/05/24 05:39 40 MG Ferrous Sulfate 325 mg BIDWM PO 12/04/24 18:00 12/05/24 08:49 325 MG Apixaban 2.5 mg BID PO 12/04/24 10:00 12/04/24 21:46 2.5 MG Cefpodoxime Proxetil 200 mg Q12H PO 12/04/24 11:00 12/04/24 21:47 200 MG Cholecalciferol 2,000 unit DAILY PO 12/05/24 10:00 Laboratory Results Laboratory Tests 12/05/24 04:49 Chemistry Test 12/05/24 04:49 Calcium Level 9.0 mg/dL (8.7-10.4) Magnesium Level 1.9 mg/dL (1.6-2.6) Urinalysis Test 11/28/24 09:07 Urine Color Colorless (Yellow) Urine Clarity Turbid (Clear) H Urine pH 5.0 (5.0-9.0) Urine Specific [place] 1.011 (1.001-1.035) Urine Protein 1+ (Negative) H Urine Ketones Negative (Negative) Urine Blood 3+ /uL (Negative) H Urine Nitrite Negative (Negative) Urine Bilirubin Negative (Negative) Urine Urobilinogen Normal mg/dL (Negative) Urine Leukocyte Esterase 3+ /uL (Negative) Urine RBC 243 /hpf (0 - 3) Urine Microscopic WBC 127 /HPF (0-3) H Urine Squamous Epithelial Cells None seen /hpf (<5) Urine Bacteria Few /hpf (None Seen) H Urine Glucose 4+ mg/dL (Normal) H Blood Gas Results Test 12/04/24 09:10 Arterial Blood pH 7.475 (7.350-7.450) FiO2 % 21.0 Microbiology Microbiology Date/Time Source Procedure Growth Status 11/28/24 09:07 Urine - Catheterized Urine Culture - Final Citrobacter koseri Complete 11/28/24 08:07 Blood Blood Culture - Final Citrobacter koseri Complete Labs and/or images reviewed: Labs reviewed by me, Image(s) reviewed by me Assessment/Plan Assessment/Plan Impression: -sepsis secondary to complicated cystitis -complicated cystitis -history of prostate cancer -acute hypoxic respiratory failure -obesity -atrial fibrillation with rapid ventricular rate -primary hypertension -questionable RV failure, probably secondary to previous MA -hematuria, anemia, pernicious drop in hematocrit -CKD stage IIIB -acute coronary syndrome Plan: -events: Patient reports that his shortness of breath has improved. Continues to have cough. Continues to be in AFib with controlled rate. H&H stable after 1 unit PRBC. Continue iron supplementation. Discussed with the patient the idea being transferred to rehabilitation facility. He is declining at this time. -cardiology consultation : Recommendations reviewed -continue current rate control with Cardizem -aggressive PT recommended. -continue p.o. antibiotics -urine culture reviewed -continue anticoagulation Eliquis. FOBT is currently pending. Continue Protonix. Total time spent with patient discussing and formulating plan of care: 35 minutes. This medical document was created using an electronic medical record system with [employer] dictation system. Although this document has been carefully reviewed, there may still be some phonetic and typographical errors. These areas are purely typographical due to imperfections of the software programs, and do not reflect any compromise in the patient's medical care. Plan discussed with: Patient, Other (RN) My Orders Orders - JESSICA HINES NP Procedure Category Date Status Time Cefpodoxime Proxetil PHA 12/04/24 In Process (Vantin) 11:00 Cholecalciferol PHA 12/05/24 In Process Tablet (Vitamin D3 10:00 Date of Service: December 05, 2024 Billing Provider: JESSICA HINES NP Common Visit Codes: [id number] INP/OBS CARE(HIGH) JESSICA HINES NP December 05, 2024 09:03
--- NOTE | 2024-12-05 10:16 | DVHPN2 ---
Consult Progress Note Date Seen: December 05, 2024 Subjective Review of Systems: CVS:Normal, RESPIRATORY:Abnormal, NEURO:Normal Other Systems: C/o mild SOB and cough. Denies chest pain Objective vital signs Vital Sign Date Time Temp Pulse Resp B/P (MAP) Pulse Ox O2 Delivery O2 Flow Rate FiO2 12/05/24 08:00 74 12/05/24 08:00 21 91 Room Air* 0 21 12/05/24 07:00 104/66 (79) 12/05/24 04:00 99.3 99.3 Total Intake and Output 12/04/24 12/04/24 12/05/24 15:00 23:00 07:00 Intake Total 1276 ml 500 ml Output Total 1000 ml 1900 ml Balance 276 ml -1400 ml medications Current Medications Medications Dose Ordered Sig/Mustapha Route Start Time Stop Time Status Last Admin Dose Admin Acetaminophen/ Hydrocodone Bitart 1 tab Q4HP PRN PO 11/28/24 12:15 11/29/24 10:39 1 TAB Ondansetron HCl 4 mg Q4HP PRN IV 11/28/24 12:15 Acetaminophen 650 mg Q6HP PRN PO 11/28/24 12:15 Morphine Sulfate 2 mg Q4HPRN PRN IV 11/28/24 12:15 Nitroglycerin 0.4 mg Q5MINP PRN SL 11/28/24 12:15 12/01/24 20:47 0.4 MG Diagnostic Test (Pha) 1 strip ACHS 11/28/24 17:00 12/05/24 06:18 1 STRIP Insulin Human Regular HS SC 11/28/24 22:00 12/04/24 21:49 3 UNITS Insulin Human Regular AC SC 11/28/24 17:00 12/05/24 06:19 2 UNITS Dextrose 50 ml UD PRN IV 11/28/24 12:15 Tamsulosin HCl 0.4 mg HS PO 11/28/24 22:00 12/04/24 21:46 0.4 MG Patient Own Medication 1 tab DAILY PO 11/29/24 10:00 Levalbuterol HCl 0.625 mg Q6HR NEB 11/30/24 12:00 12/05/24 06:21 0.625 MG Ipratropium [place] 0.5 mg Q6HR NEB 11/30/24 12:00 12/05/24 06:21 0.5 MG Amiodarone HCl 200 mg Q12HR PO 12/02/24 22:00 12/04/24 21:46 200 MG Diltiazem HCl 120 mg DAILY PO 12/03/24 10:00 12/04/24 09:11 120 MG Magnesium Oxide 800 mg DAILY PO 12/03/24 10:00 12/04/24 08:56 800 MG Guaifenesin/ Dextromethorphan 10 ml Q4HP PRN PO 12/03/24 09:15 12/05/24 05:38 10 ML Isosorbide Mononitrate 30 mg DAILY PO 12/03/24 10:00 12/04/24 08:57 30 MG Pantoprazole Sodium 40 mg DAILY@0600 PO 12/04/24 08:52 12/05/24 05:39 40 MG Ferrous Sulfate 325 mg BIDWM PO 12/04/24 18:00 12/05/24 08:49 325 MG Apixaban 2.5 mg BID PO 12/04/24 10:00 12/04/24 21:46 2.5 MG Cefpodoxime Proxetil 200 mg Q12H PO 12/04/24 11:00 12/04/24 21:47 200 MG Cholecalciferol 2,000 unit DAILY PO 12/05/24 10:00 Furosemide 20 mg DAILY IV 12/05/24 10:00 Examination: LUNGS:Abnormal (Bilateral crackles), CVS:Normal (A-fib controlled rate), NEURO:Normal laboratory and microbiology Laboratory Tests 12/05/24 04:49 Test 12/05/24 04:49 Range/Units Serum Glucose 147 H 74-106 mg/dL Problem List/Assessment/Plan Problem List/Assessment/Plan Acute coronary syndrome in the setting of progressive CAD and acute anemia Progressive coronary artery disease status post five-vessel CABG and multiple PTCAs including 6 BASIA (off antiplatelet therapy) Probable paroxysmal atrial fibrillation, stage III, controlled rate (on Eliquis, amiodarone, digoxin therapy) Sepsis with complicated cystitis HX of prostate cancer with radiation Acute anemia status post transfusion rule out GI bleed Dyslipidemia CKD stage IIIB Plan/Recommendation (Dr. Keating) A transthoracic echocardiogram revealed a LVEF of 55-60% with grade 2 diastolic dysfunction and a dilated RV with impaired systolic function. Obtain medical records from [facility] given recent cardiac catheterization and coronary angiogram completed on 06/08/2024. Reports progressive coronary artery disease including closing of grafts and in stent restenosis to drug-eluding stents with reported collateral flow. We recommend conservative management given acute anemia requiring blood transfusion. Not a candidate for invasive cardiac procedures at this time. Eliquis dose reduce to 2.5 mg BID. Obtain a FOBT to rule out GI bleed. Eventually resume single-antiplatelet therapy if not contraindicated. Continue lipid-lowering agent. Continue Cardizem, magnesium, and amiodarone therapy for rate control. Monitor H&H closely and transfuse as necessary for a goal Hgb level > 8.0. Initiate preload reduction. Further orders per primary care team. Poor prognosis. Kindly notify cardiology once medical records obtained or in the setting of further tachyarrhythmias. Thank you for allowing us to participate in this patient's care. Critical care time: 30 min. This medical document was created using an electronic medical record system with voice recognition software and computerized dictation system. Although this document has been carefully reviewed, there might still be some phonetic and typographical errors. Occasional wrong-word or ``sound-alike substitutions may have occurred due to the inherent limitations of voice recognition software. These areas are purely typographical due to imperfections of the software programs and do not reflect any compromise in the patient's medical care. Please read the chart carefully and recognize, using context, where these substitutions have occurred. Plan discussed with: Patient, Spouse, Other Date of Service: December 05, 2024 Billing Provider: VASYL WORTHINGTON Cardiology Common Codes: [id number] CARE 30-74 MIN VASYL WORTHINGTON December 05, 2024 10:16
[2024-12-05] MEDS: CHOLECALCIFEROL (VITD3) 1,000UNIT=25mCg TAB PO SCH (10:31)
[2024-12-05] MEDS: FUROSEMIDE 20 MG/2 ML VIAL IV SCH (10:33)
--- NOTE | 2024-12-05 21:50 | DVHPN2 ---
Progress Note - Dictate Date Seen: December 05, 2024 Medical Necessity Reason Pt with a Central, PICC or Fol: Yes The following are medically ne: Curry Catheter Reason for curry catheter: Strict I&O Subjective Patient seen and examined at bedside. Breathing comfortably on room air Overnight events reviewed. History of Present Illness: A 79-year-old man with past medical history of prostate cancer, atrial fibrillation, CHF, hypertension, hyperlipidemia, diabetes, and CT who presented to ED on 11/28/24 due to penile pain. Patient had just gotten out of the shower, was putting on his underwear when he felt a pull and then a pop with his Curry catheter. He then had a burning pain in his penis and there was no urine draining from the catheter, thus presented to ED. ER changed out the catheter and drained 700 ml yellow urine. He did have about 50 ml of hematuria at first which cleared up quickly. Pt also reported chronic shortness of breath and bilateral lower extremity edema. He reports he tried to get home oxygen but did not qualify. Patient was admitted for further care, and pulmonary consultation is requested for evaluation and management of acute hypoxic respiratory failure. Review of Systems: 14-point review of systems negative unless otherwise noted above. Past Medical History: Prostate cancer, atrial fibrillation, CHF, hypertension, hyperlipidemia, diabetes, and CT Past Surgical History: CABG (2006) Medications: Reviewed. Allergies: No known drug allergies. Family History: No family history of premature CAD. No family history of lung disorders. Social History: Nonsmoker. No alcohol or illicit drug use. vital signs Vital Sign Date Time Temp Pulse Resp B/P (MAP) Pulse Ox O2 Delivery O2 Flow Rate FiO2 12/05/24 20:00 99.0 77 24 95/46 (62) 94 99.0 12/05/24 20:00 Room Air* 0 21 Total Intake and Output 12/04/24 12/04/24 12/05/24 15:00 23:00 07:00 Intake Total 1276 ml 500 ml Output Total 1000 ml 1900 ml Balance 276 ml -1400 ml medications Current Medications Medications Dose Ordered Sig/Mustapha Route Start Time Stop Time Status Last Admin Dose Admin Acetaminophen/ Hydrocodone Bitart 1 tab Q4HP PRN PO 11/28/24 12:15 11/29/24 10:39 1 TAB Ondansetron HCl 4 mg Q4HP PRN IV 11/28/24 12:15 Acetaminophen 650 mg Q6HP PRN PO 11/28/24 12:15 Morphine Sulfate 2 mg Q4HPRN PRN IV 11/28/24 12:15 Nitroglycerin 0.4 mg Q5MINP PRN SL 11/28/24 12:15 12/01/24 20:47 0.4 MG Diagnostic Test (Pha) 1 strip ACHS 11/28/24 17:00 12/05/24 16:53 1 STRIP Insulin Human Regular HS SC 11/28/24 22:00 12/04/24 21:49 3 UNITS Insulin Human Regular AC SC 11/28/24 17:00 12/05/24 17:00 2 UNITS Dextrose 50 ml UD PRN IV 11/28/24 12:15 Tamsulosin HCl 0.4 mg HS PO 11/28/24 22:00 12/04/24 21:46 0.4 MG Patient Own Medication 1 tab DAILY PO 11/29/24 10:00 Levalbuterol HCl 0.625 mg Q6HR NEB 11/30/24 12:00 12/05/24 18:09 0.625 MG Ipratropium [place] 0.5 mg Q6HR NEB 11/30/24 12:00 12/05/24 18:09 0.5 MG Amiodarone HCl 200 mg Q12HR PO 12/02/24 22:00 12/05/24 10:30 200 MG Diltiazem HCl 120 mg DAILY PO 12/03/24 10:00 12/04/24 09:11 120 MG Magnesium Oxide 800 mg DAILY PO 12/03/24 10:00 12/05/24 10:25 800 MG Guaifenesin/ Dextromethorphan 10 ml Q4HP PRN PO 12/03/24 09:15 12/05/24 19:44 10 ML Isosorbide Mononitrate 30 mg DAILY PO 12/03/24 10:00 12/05/24 10:24 30 MG Pantoprazole Sodium 40 mg DAILY@0600 PO 12/04/24 08:52 12/05/24 05:39 40 MG Ferrous Sulfate 325 mg BIDWM PO 12/04/24 18:00 12/05/24 17:06 325 MG Apixaban 2.5 mg BID PO 12/04/24 10:00 12/05/24 10:27 2.5 MG Cefpodoxime Proxetil 200 mg Q12H PO 12/04/24 11:00 12/05/24 12:28 200 MG Cholecalciferol 2,000 unit DAILY PO 12/05/24 10:00 12/05/24 10:31 2,000 UNIT Furosemide 20 mg DAILY IV 12/05/24 10:00 12/05/24 10:33 20 MG objective Gen.: Patient lying in bed in no apparent distress. Breathing on room air. Head: Normocephalic, atraumatic. Eyes: EOMI/PERRLA. Ears: Normal hearing. Normal anatomy. Neck/trachea: Trachea midline, supple. Nose: Normal external anatomy. Mouth: Moist mucous membranes. Chest: Decreased air entry bilaterally. No wheezing or rhonchi. Cardiovascular: Positive S1, positive S2. Regular rate and rhythm. Abdomen: Positive bowel sounds in all 4 quadrants. Soft, non-tender, non- distended. : Deferred. Rectal: Deferred. Skin: Warm, dry. Intact. Extremities: 2+ radial pulses bilaterally. No lower extremity edema. Neuro: Awake, alert, oriented x3. No gross motor or sensory deficits. Cranial nerves II through XII intact. Gait not assessed. laboratory and microbiology Laboratory Tests 12/05/24 04:49 Test 12/05/24 04:49 Range/Units Serum Glucose 147 H 74-106 mg/dL Assessment/Plan Impression: Acute hypoxic respiratory failure Sepsis 2/2 cystitis Atrial fibrillation with rapid ventricular response Congestive heart failure, diastolic Obesity Anemia Events: Breathing on room air No respiratory distress. Supplemental oxygen PRN Continue amiodarone PO Eliquis BID Cardiology recommendations appreciated. Monitor hemoglobin - currently 8.6 g/dL Transfused 1 unit of pRBC yesterday Iron supplementation Continue antibiotics Lovenox for DVT prophylaxis Monitor renal function. Creat 1.49 Patient is stable for downgrade from the pulmonary standpoint. Labs and imaging reviewed. Rest of plan as noted below. Plan: Supplemental oxygen PRN Titrate to keep O2 sats above 92%. Continue bronchodilators. Continue antibiotics Cardiology recs appreciated Monitor hemoglobin Eliquis BID Accu-Cheks, ISS. Monitor renal function. Monitor electrolytes. Supplement as necessary. Monitor ins and outs. DVT prophylaxis Prognosis: Poor given patient's multiple co-morbidities. Rest of plan per hospitalist and other consultants. Thank you for allowing me to participate in this patient's care. Further recommendations will depend on the patient's clinical course. Please do not hesitate to contact me if you have any questions or concerns. This medical document was created using an electronic medical record system with Webcom dictation system. Although these documentations are being carefully reviewed, there may still be some phonetic and typographical changes. The errors are purely typographical, due to imperfection on the software program, and do not reflect any compromise in the patient's medical care. Plan discussed with: Patient, Other (DAYA Campoverde) LOKESH HERMAN MD December 05, 2024 21:50
[2024-12-06] VITALS (27 sets, daily range): BP systolic 105–146; BP diastolic 56–84; PULSE 67–85; RESP 17–33; TEMP 97.7–98.5; O2SAT 92–100
[2024-12-06 08:30] LABS: Chloride 104 mmol/L (98-107); Potassium 3.9 mmol/L (3.5-5.1); Sodium 138 mmol/L (136-145)
[2024-12-06 08:31] LABS: Anion Gap 10 (5-15); Calcium 8.8 mg/dL (8.7-10.4); Carbon Dioxide 24 mmol/L (20-31)
[2024-12-06 08:36] LABS: BUN/Creatinine Ratio 11.8 (10.0-20.0); Blood Urea Nitrogen 18 mg/dL (9-23); Glucose 145 mg/dL (74-106)
[2024-12-06 08:43] LABS: Basophils # (auto) 0 10 ^3/uL (0-0.2); Eosinophils # (auto) 0.3 10 ^3/uL (0-0.8); Hematocrit 26.8 % (41.0-53.0); Hemoglobin 8.8 g/dL (13.5-17.5); Lymphocytes # (auto) 0.5 10 ^3/uL (0.4-5.4); Lymphocytes % (auto) 11.1 % (10.0-50.0); Mean Corpuscular Hgb Conc. 32.7 g/dL (32.0-36.0); Monocytes # (auto) 0.6 10 ^3/uL (0-1.3); Neutrophils # (auto) 3.5 10 ^3/uL (1.6-8.6); White Blood Cell 4.9 10^3/uL (4.4-10.8)
[2024-12-06 08:48] LABS: Basophils % (auto) 0.5 % (0.0-2.0); Eosinophils % (auto) 6.3 % (0.0-7.0); Mean Corpuscular Hemoglobin 26.8 pg (28.0-32.0); Mean Corpuscular Volume 81.8 fL (80.0-100.0); Monocytes % (auto) 11.4 % (0.0-12.0); Neutrophils % (auto) 70.7 % (37.0-80.0); Platelet Count (auto) 287 10^3/uL (140-450); Red Blood Cells 3.28 10^6/uL (4.5-5.90); Red Cell Distribution Width 17.6 % (11.8-14.3)
--- NOTE | 2024-12-06 09:21 | DVHPN2 ---
Subjective Patient states that he feels better than yesterday. Reviewed: Care Plan, H&P, Labs, Medications Changes from previous H/P or p: No Changes General: Per HPI Eyes: No Pain, No Vision change, No Conjunctivae inflammation, No Eyelid inflammation, No Other, No Redness ENT: No Ear pain, No Ear discharge, No Nose pain, No Nose discharge, No Nose congestion, No Mouth pain, No Mouth swelling, No Throat pain, No Throat swelling, No Other Cardiovascular: No Chest Pain, No Palpitations, No Orthopnea, No Paroxysmal Noc. Dyspnea, No Edema, No Lt Headedness, No Other Respiratory: No Cough, No Dry, No Shortness of breath, No SOB with excertion, No Wheezing, No Hemoptysis, No Pleuritic Pain, No Sputum, No Other Gastrointestinal: No Nausea, No Vomiting, No Abdominal Pain, No Diarrhea, No Constipation, No Melena, No Hematochezia, No Other Genitourinary: No Dysuria, No Frequency, No Incontinence, No Hematuria; R etention, Other (penial pain) Musculoskeletal: No other, No neck pain, No shoulder pain, No arm pain, No back pain, No hand pain, No leg pain, No foot pain Skin: No Rash, No Lesions, No Jaundice, No Bruising, No Other Objective Vitals Vital Signs Date Time Temp Pulse Resp B/P (MAP) Pulse Ox O2 Delivery O2 Flow Rate FiO2 12/06/24 08:00 98.2 75 25 133/75 (94) 92 98.2 12/06/24 06:50 Room Air* 0 21 Intake/Output Intake and Output 12/06/24 07:00 Intake Total 1750 ml Output Total 3570 ml Balance -1820 ml Intake Oral 1750 ml Output Urine Total 3570 ml General Appearance: Alert, Oriented X3, Cooperative, No acute distress HEENT: Atraumatic, PERRLA Lungs: Clear to auscultation, Normal air movement Cardiovascular: Normal S1, Normal S2 Genitourinary: No Apparent Abnormalities (Baker catheterization) Musculoskeletal: Normal sensory function, Normal motor function Skin: Dry, Intact Psych/Mental Status: Mental status NL, Mood NL Medications Current Medications Medications Dose Ordered Sig/Mustapha Route Start Time Stop Time Status Last Admin Dose Admin Acetaminophen/ Hydrocodone Bitart 1 tab Q4HP PRN PO 11/28/24 12:15 11/29/24 10:39 1 TAB Ondansetron HCl 4 mg Q4HP PRN IV 11/28/24 12:15 Acetaminophen 650 mg Q6HP PRN PO 11/28/24 12:15 Morphine Sulfate 2 mg Q4HPRN PRN IV 11/28/24 12:15 Nitroglycerin 0.4 mg Q5MINP PRN SL 11/28/24 12:15 12/01/24 20:47 0.4 MG Diagnostic Test (Pha) 1 strip ACHS 11/28/24 17:00 12/06/24 06:43 1 STRIP Insulin Human Regular HS SC 11/28/24 22:00 12/05/24 21:35 4 UNITS Insulin Human Regular AC SC 11/28/24 17:00 12/05/24 17:00 2 UNITS Dextrose 50 ml UD PRN IV 11/28/24 12:15 Tamsulosin HCl 0.4 mg HS PO 11/28/24 22:00 12/05/24 21:31 0.4 MG Patient Own Medication 1 tab DAILY PO 11/29/24 10:00 Levalbuterol HCl 0.625 mg Q6HR NEB 11/30/24 12:00 12/06/24 06:51 0.625 MG Ipratropium [place] 0.5 mg Q6HR NEB 11/30/24 12:00 12/06/24 06:50 0.5 MG Amiodarone HCl 200 mg Q12HR PO 12/02/24 22:00 12/05/24 21:31 200 MG Diltiazem HCl 120 mg DAILY PO 12/03/24 10:00 12/04/24 09:11 120 MG Magnesium Oxide 800 mg DAILY PO 12/03/24 10:00 12/05/24 10:25 800 MG Guaifenesin/ Dextromethorphan 10 ml Q4HP PRN PO 12/03/24 09:15 12/05/24 23:51 10 ML Isosorbide Mononitrate 30 mg DAILY PO 12/03/24 10:00 12/05/24 10:24 30 MG Pantoprazole Sodium 40 mg DAILY@0600 PO 12/04/24 08:52 12/06/24 06:01 40 MG Ferrous Sulfate 325 mg BIDWM PO 12/04/24 18:00 12/06/24 08:17 325 MG Apixaban 2.5 mg BID PO 12/04/24 10:00 12/05/24 21:31 2.5 MG Cefpodoxime Proxetil 200 mg Q12H PO 12/04/24 11:00 12/05/24 23:51 200 MG Cholecalciferol 2,000 unit DAILY PO 12/05/24 10:00 12/05/24 10:31 2,000 UNIT Furosemide 20 mg DAILY IV 12/05/24 10:00 12/05/24 10:33 20 MG Lactulose 30 ml Q6HR PO 12/06/24 12:00 Laboratory Results Laboratory Tests 12/06/24 08:10 Chemistry Test 12/06/24 08:10 Calcium Level 8.8 mg/dL (8.7-10.4) Urinalysis Test 11/28/24 09:07 Urine Color Colorless (Yellow) Urine Clarity Turbid (Clear) H Urine pH 5.0 (5.0-9.0) Urine Specific [place] 1.011 (1.001-1.035) Urine Protein 1+ (Negative) H Urine Ketones Negative (Negative) Urine Blood 3+ /uL (Negative) H Urine Nitrite Negative (Negative) Urine Bilirubin Negative (Negative) Urine Urobilinogen Normal mg/dL (Negative) Urine Leukocyte Esterase 3+ /uL (Negative) Urine RBC 243 /hpf (0 - 3) Urine Microscopic WBC 127 /HPF (0-3) H Urine Squamous Epithelial Cells None seen /hpf (<5) Urine Bacteria Few /hpf (None Seen) H Urine Glucose 4+ mg/dL (Normal) H Microbiology Microbiology Date/Time Source Procedure Growth Status 11/28/24 09:07 Urine - Catheterized Urine Culture - Final Citrobacter koseri Complete 11/28/24 08:07 Blood Blood Culture - Final Citrobacter koseri Complete Labs and/or images reviewed: Labs reviewed by me, Image(s) reviewed by me Assessment/Plan Assessment/Plan Impression: -sepsis secondary to complicated cystitis -complicated cystitis -history of prostate cancer -acute hypoxic respiratory failure -obesity -atrial fibrillation with rapid ventricular rate -primary hypertension -questionable RV failure, probably secondary to previous SC -hematuria, anemia, pernicious drop in hematocrit -CKD stage IIIB -acute coronary syndrome -constipation Plan: -events: Patient noted to ambulate approximately 4 ft. According to patient's , it was with significant assistance by Physical therapy. -cardiology consultation : Recommendations reviewed -start bowel regimen -aggressive PT recommended. -continue p.o. antibiotics -urine culture reviewed -continue anticoagulation Eliquis. FOBT is currently pending. Continue Protonix. Total time spent with patient discussing and formulating plan of care: 35 minutes. This medical document was created using an electronic medical record system with Podio dictation system. Although this document has been carefully reviewed, there may still be some phonetic and typographical errors. These areas are purely typographical due to imperfections of the software programs, and do not reflect any compromise in the patient's medical care. Plan discussed with: Patient, Other (RN) My Orders Orders - JESSICA HINES NP Procedure Category Date Status Time Lactulose Oral PHA 12/06/24 In Process 12:00 Date of Service: December 06, 2024 Billing Provider: JESSICA HINES NP Common Visit Codes: [id number] INP/OBS CARE(HIGH) JESSICA HINES NP December 06, 2024 09:21
[2024-12-06] MEDS: LACTULOSE 20Gm/30ML SOLN PO SCH (12:40)
--- NOTE | 2024-12-06 22:59 | DVHPN2 ---
Progress Note - Dictate Date Seen: December 06, 2024 Medical Necessity Reason Pt with a Central, PICC or Fol: Yes The following are medically ne: Curry Catheter Reason for curry catheter: Strict I&O Subjective Patient seen and examined at bedside. Breathing comfortably on room air Overnight events reviewed. History of Present Illness: A 79-year-old man with past medical history of prostate cancer, atrial fibrillation, CHF, hypertension, hyperlipidemia, diabetes, and [place] who presented to ED on 11/28/24 due to penile pain. Patient had just gotten out of the shower, was putting on his underwear when he felt a pull and then a pop with his Curry catheter. He then had a burning pain in his penis and there was no urine draining from the catheter, thus presented to ED. ER changed out the catheter and drained 700 ml yellow urine. He did have about 50 ml of hematuria at first which cleared up quickly. Pt also reported chronic shortness of breath and bilateral lower extremity edema. He reports he tried to get home oxygen but did not qualify. Patient was admitted for further care, and pulmonary consultation is requested for evaluation and management of acute hypoxic respiratory failure. Review of Systems: 14-point review of systems negative unless otherwise noted above. Past Medical History: Prostate cancer, atrial fibrillation, CHF, hypertension, hyperlipidemia, diabetes, and [place] Past Surgical History: CABG (2006) Medications: Reviewed. Allergies: No known drug allergies. Family History: No family history of premature CAD. No family history of lung disorders. Social History: Nonsmoker. No alcohol or illicit drug use. vital signs Vital Sign Date Time Temp Pulse Resp B/P (MAP) Pulse Ox O2 Delivery O2 Flow Rate FiO2 12/06/24 21:00 98.4 70 18 124/72 (89) 94 98.4 12/06/24 19:01 Room Air 12/06/24 19:01 0 21 Total Intake and Output 12/05/24 12/05/24 12/06/24 15:00 23:00 07:00 Intake Total 300 ml 1200 ml 250 ml Output Total 2220 ml 1350 ml Balance 300 ml -1020 ml -1100 ml medications Current Medications Medications Dose Ordered Sig/Mustapha Route Start Time Stop Time Status Last Admin Dose Admin Acetaminophen/ Hydrocodone Bitart 1 tab Q4HP PRN PO 11/28/24 12:15 11/29/24 10:39 1 TAB Ondansetron HCl 4 mg Q4HP PRN IV 11/28/24 12:15 Acetaminophen 650 mg Q6HP PRN PO 11/28/24 12:15 Morphine Sulfate 2 mg Q4HPRN PRN IV 11/28/24 12:15 Nitroglycerin 0.4 mg Q5MINP PRN SL 11/28/24 12:15 12/01/24 20:47 0.4 MG Diagnostic Test (Pha) 1 strip ACHS 11/28/24 17:00 12/06/24 21:40 1 STRIP Insulin Human Regular HS SC 11/28/24 22:00 12/06/24 21:41 2 UNITS Insulin Human Regular AC SC 11/28/24 17:00 12/06/24 12:53 3 UNITS Dextrose 50 ml UD PRN IV 11/28/24 12:15 Tamsulosin HCl 0.4 mg HS PO 11/28/24 22:00 12/06/24 21:42 0.4 MG Patient Own Medication 1 tab DAILY PO 11/29/24 10:00 Levalbuterol HCl 0.625 mg Q6HR NEB 11/30/24 12:00 12/06/24 19:01 0.625 MG Ipratropium [place] 0.5 mg Q6HR NEB 11/30/24 12:00 12/06/24 19:01 0.5 MG Amiodarone HCl 200 mg Q12HR PO 12/02/24 22:00 12/06/24 21:42 200 MG Diltiazem HCl 120 mg DAILY PO 12/03/24 10:00 12/06/24 11:56 120 MG Magnesium Oxide 800 mg DAILY PO 12/03/24 10:00 12/06/24 11:52 800 MG Guaifenesin/ Dextromethorphan 10 ml Q4HP PRN PO 12/03/24 09:15 12/06/24 22:12 10 ML Isosorbide Mononitrate 30 mg DAILY PO 12/03/24 10:00 12/06/24 11:54 30 MG Pantoprazole Sodium 40 mg DAILY@0600 PO 12/04/24 08:52 12/06/24 06:01 40 MG Ferrous Sulfate 325 mg BIDWM PO 12/04/24 18:00 12/06/24 18:22 325 MG Apixaban 2.5 mg BID PO 12/04/24 10:00 12/06/24 21:42 2.5 MG Cefpodoxime Proxetil 200 mg Q12H PO 12/04/24 11:00 12/06/24 22:12 200 MG Cholecalciferol 2,000 unit DAILY PO 12/05/24 10:00 12/06/24 11:52 2,000 UNIT Furosemide 20 mg DAILY IV 12/05/24 10:00 12/06/24 11:52 20 MG Lactulose 30 ml Q6HR PO 12/06/24 12:00 12/06/24 12:40 30 ML objective Gen.: Patient lying in bed in no apparent distress. Breathing on room air. Head: Normocephalic, atraumatic. Eyes: EOMI/PERRLA. Ears: Normal hearing. Normal anatomy. Neck/trachea: Trachea midline, supple. Nose: Normal external anatomy. Mouth: Moist mucous membranes. Chest: Decreased air entry bilaterally. No wheezing or rhonchi. Cardiovascular: Positive S1, positive S2. Regular rate and rhythm. Abdomen: Positive bowel sounds in all 4 quadrants. Soft, non-tender, non- distended. : Deferred. Rectal: Deferred. Skin: Warm, dry. Intact. Extremities: 2+ radial pulses bilaterally. No lower extremity edema. Neuro: Awake, alert, oriented x3. No gross motor or sensory deficits. Cranial nerves II through XII intact. Gait not assessed. laboratory and microbiology Laboratory Tests 12/06/24 08:10 Test 12/06/24 08:10 Range/Units Serum Glucose 145 H 74-106 mg/dL Assessment/Plan Impression: Acute hypoxic respiratory failure Sepsis 2/2 cystitis Atrial fibrillation with rapid ventricular response Congestive heart failure, diastolic Obesity Anemia Events: Breathing on room air No respiratory distress. Supplemental oxygen PRN No new complaints. Continue amiodarone PO Eliquis BID Cardiology recommendations appreciated. Complete antibiotic course Monitor hemoglobin - stable at 8.8 g/dL Iron supplementation Patient is stable for downgrade from the pulmonary standpoint. Labs and imaging reviewed. Rest of plan as noted below. Plan: Supplemental oxygen PRN Titrate to keep O2 sats above 92%. Continue bronchodilators. Continue antibiotics Cardiology recs appreciated Monitor hemoglobin Eliquis BID Accu-Cheks, ISS. Monitor renal function. Monitor electrolytes. Supplement as necessary. Monitor ins and outs. DVT prophylaxis Prognosis: Poor given patient's multiple co-morbidities. Rest of plan per hospitalist and other consultants. Thank you DrRoyer for allowing me to participate in this patient's care. Further recommendations will depend on the patient's clinical course. Please do not hesitate to contact me if you have any questions or concerns. This medical document was created using an electronic medical record system with CC video dictation system. Although these documentations are being carefully reviewed, there may still be some phonetic and typographical changes. The errors are purely typographical, due to imperfection on the software program, and do not reflect any compromise in the patient's medical care. Plan discussed with: Patient, Other (DAYA Marquez) LOKESH HERMAN MD December 06, 2024 22:59
[2024-12-07] VITALS (16 sets, daily range): BP systolic 97–119; BP diastolic 60–71; PULSE 67–83; RESP 12–20; TEMP 97.2–98.3; O2SAT 93–100
[2024-12-07] MEDS ORDERED: POLYETHYLENE GLYCOL 17 GM PWDR PO PRN (10:00)
[2024-12-07] MEDS ORDERED: BISACODYL 10 MG RECT SUPP PR PRN (10:00)
--- NOTE | 2024-12-07 10:08 | DVHPN2 ---
Subjective Patient reports having severe dyspnea and weakness after activity Reviewed: Care Plan, H&P, Labs, Medications Changes from previous H/P or p: No Changes General: Per HPI Eyes: No Pain, No Vision change, No Conjunctivae inflammation, No Eyelid inflammation, No Other, No Redness ENT: No Ear pain, No Ear discharge, No Nose pain, No Nose discharge, No Nose congestion, No Mouth pain, No Mouth swelling, No Throat pain, No Throat swelling, No Other Cardiovascular: No Chest Pain, No Palpitations, No Orthopnea, No Paroxysmal Noc. Dyspnea, No Edema, No Lt Headedness, No Other Respiratory: No Cough, No Dry, No Shortness of breath, No SOB with excertion, No Wheezing, No Hemoptysis, No Pleuritic Pain, No Sputum, No Other Gastrointestinal: No Nausea, No Vomiting, No Abdominal Pain, No Diarrhea, No Constipation, No Melena, No Hematochezia, No Other Genitourinary: No Dysuria, No Frequency, No Incontinence, No Hematuria; R etention, Other (penial pain) Musculoskeletal: No other, No neck pain, No shoulder pain, No arm pain, No back pain, No hand pain, No leg pain, No foot pain Skin: No Rash, No Lesions, No Jaundice, No Bruising, No Other Objective Vitals Vital Signs Date Time Temp Pulse Resp B/P (MAP) Pulse Ox O2 Delivery O2 Flow Rate FiO2 12/07/24 09:36 105/64 12/07/24 09:35 67 12/07/24 07:28 16 100 12/07/24 07:22 Room Air* 0 21 12/07/24 05:00 98.2 98.2 Intake/Output Intake and Output 12/07/24 07:00 Intake Total 530 ml Output Total 1900 ml Balance -1370 ml Intake Oral 530 ml Output Urine Total 1900 ml General Appearance: Alert, Oriented X3, Cooperative, No acute distress HEENT: Atraumatic, PERRLA Lungs: Clear to auscultation, Normal air movement Cardiovascular: Normal S1, Normal S2 Genitourinary: No Apparent Abnormalities (Baker catheterization) Musculoskeletal: Normal sensory function, Normal motor function Skin: Dry, Intact Psych/Mental Status: Mental status NL, Mood NL Medications Current Medications Medications Dose Ordered Sig/Mustapha Route Start Time Stop Time Status Last Admin Dose Admin Acetaminophen/ Hydrocodone Bitart 1 tab Q4HP PRN PO 11/28/24 12:15 11/29/24 10:39 1 TAB Ondansetron HCl 4 mg Q4HP PRN IV 11/28/24 12:15 Acetaminophen 650 mg Q6HP PRN PO 11/28/24 12:15 Morphine Sulfate 2 mg Q4HPRN PRN IV 11/28/24 12:15 Nitroglycerin 0.4 mg Q5MINP PRN SL 11/28/24 12:15 12/01/24 20:47 0.4 MG Diagnostic Test (Pha) 1 strip ACHS 11/28/24 17:00 12/07/24 06:31 1 STRIP Insulin Human Regular HS SC 11/28/24 22:00 12/06/24 21:41 2 UNITS Insulin Human Regular AC SC 11/28/24 17:00 12/07/24 06:30 3 UNITS Dextrose 50 ml UD PRN IV 11/28/24 12:15 Tamsulosin HCl 0.4 mg HS PO 11/28/24 22:00 12/06/24 21:42 0.4 MG Patient Own Medication 1 tab DAILY PO 11/29/24 10:00 Levalbuterol HCl 0.625 mg Q6HR NEB 11/30/24 12:00 12/07/24 07:21 0.625 MG Ipratropium [place] 0.5 mg Q6HR NEB 11/30/24 12:00 12/07/24 07:22 0.5 MG Amiodarone HCl 200 mg Q12HR PO 12/02/24 22:00 12/07/24 09:34 200 MG Diltiazem HCl 120 mg DAILY PO 12/03/24 10:00 12/07/24 09:35 120 MG Magnesium Oxide 800 mg DAILY PO 12/03/24 10:00 12/07/24 09:33 800 MG Guaifenesin/ Dextromethorphan 10 ml Q4HP PRN PO 12/03/24 09:15 12/06/24 22:12 10 ML Isosorbide Mononitrate 30 mg DAILY PO 12/03/24 10:00 12/07/24 09:36 30 MG Pantoprazole Sodium 40 mg DAILY@0600 PO 12/04/24 08:52 12/07/24 05:53 40 MG Ferrous Sulfate 325 mg BIDWM PO 12/04/24 18:00 12/07/24 09:34 325 MG Apixaban 2.5 mg BID PO 12/04/24 10:00 12/06/24 21:42 2.5 MG Cefpodoxime Proxetil 200 mg Q12H PO 12/04/24 11:00 12/07/24 09:34 200 MG Cholecalciferol 2,000 unit DAILY PO 12/05/24 10:00 12/07/24 09:36 2,000 UNIT Furosemide 20 mg DAILY IV 12/05/24 10:00 12/07/24 09:34 20 MG Lactulose 30 ml Q6HR PO 12/06/24 12:00 12/07/24 05:53 30 ML Polyethylene Glycol 17 gm DAILYPRN PRN PO 12/07/24 10:00 UNV Bisacodyl 10 mg DAILYP PRN [place] 12/07/24 10:00 UNV Laboratory Results Laboratory Tests 12/06/24 08:10 Urinalysis Test 11/28/24 09:07 Urine Color Colorless (Yellow) Urine Clarity Turbid (Clear) H Urine pH 5.0 (5.0-9.0) Urine Specific [place] 1.011 (1.001-1.035) Urine Protein 1+ (Negative) H Urine Ketones Negative (Negative) Urine Blood 3+ /uL (Negative) H Urine Nitrite Negative (Negative) Urine Bilirubin Negative (Negative) Urine Urobilinogen Normal mg/dL (Negative) Urine Leukocyte Esterase 3+ /uL (Negative) Urine RBC 243 /hpf (0 - 3) Urine Microscopic WBC 127 /HPF (0-3) H Urine Squamous Epithelial Cells None seen /hpf (<5) Urine Bacteria Few /hpf (None Seen) H Urine Glucose 4+ mg/dL (Normal) H Microbiology Microbiology Date/Time Source Procedure Growth Status 11/28/24 09:07 Urine - Catheterized Urine Culture - Final Citrobacter koseri Complete 11/28/24 08:07 Blood Blood Culture - Final Citrobacter koseri Complete Labs and/or images reviewed: Labs reviewed by me, Image(s) reviewed by me Assessment/Plan Assessment/Plan Impression: -sepsis secondary to complicated cystitis -complicated cystitis -history of prostate cancer -acute hypoxic respiratory failure -obesity -atrial fibrillation with rapid ventricular rate -primary hypertension -questionable RV failure, probably secondary to previous [place] -hematuria, anemia, pernicious drop in hematocrit -CKD stage IIIB -acute coronary syndrome -constipation Plan: -events: Patent witnessed statin severe dyspnea after transitioning from bedside commode bed. Patient now agreeable to transfer to intermediate facility for physical therapy. Records from [place] system regarding previous coronary angiogram still pending. Discussion made with the patient regarding underlying symptoms, could be questionably cardiac related given no pulmonary etiology found. FOBT pending. -social service consultation for transfer to intermediate facility. -cardiology consultation : Recommendations reviewed -Continue bowel regimen, add MiraLax, as well as Dulcolax suppository. -aggressive PT recommended. -continue p.o. antibiotics -urine culture reviewed -continue anticoagulation Eliquis. FOBT is currently pending. Continue Protonix. Total time spent with patient discussing and formulating plan of care: 35 minutes. This medical document was created using an electronic medical record system with [employer] dictation system. Although this document has been carefully reviewed, there may still be some phonetic and typographical errors. These areas are purely typographical due to imperfections of the software programs, and do not reflect any compromise in the patient's medical care. Plan discussed with: Patient, Other (RN) My Orders Orders - JESSICA HINES NP Procedure Category Date Status Time * Marketing Development Manager CONS 12/07/24 Transmitted Consult Polyethylene Glycol PHA 12/07/24 Logged 17g Powder (Miralax 10:00 Polyethylene Glycol PHA 12/07/24 Logged 17g Powder (Miralax 10:00 Bisacodyl Suppository PHA 12/07/24 Logged (Dulcolax Supposit 10:00 Date of Service: December 07, 2024 Billing Provider: JESSICA HINES NP Common Visit Codes: [id number] INP/OBS CARE(HIGH) JESSICA HINES NP December 07, 2024 10:08
[2024-12-07] MEDS: POLYETHYLENE GLYCOL 17 GM PWDR PO ONE (11:26)
--- NOTE | 2024-12-07 20:59 | DVHPN2 ---
Progress Note - Dictate Date Seen: December 07, 2024 Medical Necessity Reason Pt with a Central, PICC or Fol: Yes The following are medically ne: Curry Catheter Reason for curry catheter: Strict I&O Subjective Patient seen and examined at bedside. Breathing comfortably on room air Overnight events reviewed. History of Present Illness: A 79-year-old man with past medical history of prostate cancer, atrial fibrillation, CHF, hypertension, hyperlipidemia, diabetes, and [place] who presented to ED on 11/28/24 due to penile pain. Patient had just gotten out of the shower, was putting on his underwear when he felt a pull and then a pop with his Curry catheter. He then had a burning pain in his penis and there was no urine draining from the catheter, thus presented to ED. ER changed out the catheter and drained 700 ml yellow urine. He did have about 50 ml of hematuria at first which cleared up quickly. Pt also reported chronic shortness of breath and bilateral lower extremity edema. He reports he tried to get home oxygen but did not qualify. Patient was admitted for further care, and pulmonary consultation is requested for evaluation and management of acute hypoxic respiratory failure. Review of Systems: 14-point review of systems negative unless otherwise noted above. Past Medical History: Prostate cancer, atrial fibrillation, CHF, hypertension, hyperlipidemia, diabetes, and [place] Past Surgical History: CABG (2006) Medications: Reviewed. Allergies: No known drug allergies. Family History: No family history of premature CAD. No family history of lung disorders. Social History: Nonsmoker. No alcohol or illicit drug use. vital signs Vital Sign Date Time Temp Pulse Resp B/P (MAP) Pulse Ox O2 Delivery O2 Flow Rate FiO2 12/07/24 18:46 68 18 100 12/07/24 18:40 Room Air* 0 21 12/07/24 17:00 97.9 103/62 (76) 97.9 Total Intake and Output 12/06/24 12/06/24 12/07/24 15:00 23:00 07:00 Intake Total 280 ml 250 ml Output Total 1500 ml 400 ml Balance -1220 ml -150 ml medications Current Medications Medications Dose Ordered Sig/[place]apha Route Start Time Stop Time Status Last Admin Dose Admin Acetaminophen/ Hydrocodone Bitart 1 tab Q4HP PRN PO 11/28/24 12:15 11/29/24 10:39 1 TAB Ondansetron HCl 4 mg Q4HP PRN IV 11/28/24 12:15 Acetaminophen 650 mg Q6HP PRN PO 11/28/24 12:15 Morphine Sulfate 2 mg Q4HPRN PRN IV 11/28/24 12:15 Nitroglycerin 0.4 mg Q5MINP PRN SL 11/28/24 12:15 12/01/24 20:47 0.4 MG Diagnostic Test (Pha) 1 strip ACHS 11/28/24 17:00 12/07/24 17:19 1 STRIP Insulin Human Regular HS SC 11/28/24 22:00 12/06/24 21:41 2 UNITS Insulin Human Regular AC SC 11/28/24 17:00 12/07/24 17:19 2 UNITS Dextrose 50 ml UD PRN IV 11/28/24 12:15 Tamsulosin HCl 0.4 mg HS PO 11/28/24 22:00 12/06/24 21:42 0.4 MG Patient Own Medication 1 tab DAILY PO 11/29/24 10:00 Levalbuterol HCl 0.625 mg Q6HR NEB 11/30/24 12:00 12/07/24 18:40 0.625 MG Ipratropium [place] 0.5 mg Q6HR NEB 11/30/24 12:00 12/07/24 18:40 0.5 MG Amiodarone HCl 200 mg Q12HR PO 12/02/24 22:00 12/07/24 09:34 200 MG Diltiazem HCl 120 mg DAILY PO 12/03/24 10:00 12/07/24 09:35 120 MG Magnesium Oxide 800 mg DAILY PO 12/03/24 10:00 12/07/24 09:33 800 MG Guaifenesin/ Dextromethorphan 10 ml Q4HP PRN PO 12/03/24 09:15 12/06/24 22:12 10 ML Isosorbide Mononitrate 30 mg DAILY PO 12/03/24 10:00 12/07/24 09:36 30 MG Pantoprazole Sodium 40 mg DAILY@0600 PO 12/04/24 08:52 12/07/24 05:53 40 MG Ferrous Sulfate 325 mg BIDWM PO 12/04/24 18:00 12/07/24 17:41 325 MG Apixaban 2.5 mg BID PO 12/04/24 10:00 12/06/24 21:42 2.5 MG Cefpodoxime Proxetil 200 mg Q12H PO 12/04/24 11:00 12/07/24 09:34 200 MG Cholecalciferol 2,000 unit DAILY PO 12/05/24 10:00 12/07/24 09:36 2,000 UNIT Furosemide 20 mg DAILY IV 12/05/24 10:00 12/07/24 09:34 20 MG Lactulose 30 ml Q6HR PO 12/06/24 12:00 12/07/24 05:53 30 ML Polyethylene Glycol 17 gm DAILYPRN PRN PO 12/07/24 10:00 Bisacodyl 10 mg DAILYP PRN [place] 12/07/24 10:00 objective Gen.: Patient lying in bed in no apparent distress. Breathing on room air. Head: Normocephalic, atraumatic. Eyes: EOMI/PERRLA. Ears: Normal hearing. Normal anatomy. Neck/trachea: Trachea midline, supple. Nose: Normal external anatomy. Mouth: Moist mucous membranes. Chest: Decreased air entry bilaterally. No wheezing or rhonchi. Cardiovascular: Positive S1, positive S2. Regular rate and rhythm. Abdomen: Positive bowel sounds in all 4 quadrants. Soft, non-tender, non- distended. : Deferred. Rectal: Deferred. Skin: Warm, dry. Intact. Extremities: 2+ radial pulses bilaterally. No lower extremity edema. Neuro: Awake, alert, oriented x3. No gross motor or sensory deficits. Cranial nerves II through XII intact. Gait not assessed. laboratory and microbiology Laboratory Tests 12/06/24 08:10 Test 12/06/24 08:10 Range/Units Serum Glucose 145 H 74-106 mg/dL Assessment/Plan Impression: Acute hypoxic respiratory failure Sepsis 2/2 cystitis Atrial fibrillation with rapid ventricular response Congestive heart failure, diastolic Obesity Anemia Events: Breathing on room air No respiratory distress. Supplemental oxygen PRN Held Eliquis Continue amiodarone PO Cardiology recommendations appreciated. Complete antibiotic course Monitor hemoglobin - dark stool noted Iron supplementation Monitor for GI hemorrhage Labs and imaging reviewed. Rest of plan as noted below. Plan: Supplemental oxygen PRN Titrate to keep O2 sats above 92%. Continue bronchodilators. Continue antibiotics Cardiology recs appreciated Monitor hemoglobin Eliquis BID Accu-Cheks, ISS. Monitor renal function. Monitor electrolytes. Supplement as necessary. Monitor ins and outs. DVT prophylaxis Prognosis: Poor given patient's multiple co-morbidities. Rest of plan per hospitalist and other consultants. Thank you for allowing me to participate in this patient's care. Further recommendations will depend on the patient's clinical course. Please do not hesitate to contact me if you have any questions or concerns. This medical document was created using an electronic medical record system with [employer] dictation system. Although these documentations are being carefully reviewed, there may still be some phonetic and typographical changes. The errors are purely typographical, due to imperfection on the software program, and do not reflect any compromise in the patient's medical care. Dietary Evaluation Review Comments: Continue currrent dietary regimen including Vit D and iron and MVI. supplementation, consider Renal diet with protein restriction of 60g, if GFR worsens. Expected Outcomes/Goals: controlled DM, Plan discussed with: Patient, Other (DAYA Cuevas) LOKESH HERMAN MD December 07, 2024 20:59
[2024-12-08] VITALS (17 sets, daily range): BP systolic 107–147; BP diastolic 57–80; PULSE 64–74; RESP 14–19; TEMP 97.8–98.3; O2SAT 94–100
--- NOTE | 2024-12-08 12:41 | DVHPN2 ---
Reviewed: Care Plan, H&P, Labs, Medications Changes from previous H/P or p: No Changes General: Per HPI Eyes: No Pain, No Vision change, No Conjunctivae inflammation, No Eyelid inflammation, No Other, No Redness ENT: No Ear pain, No Ear discharge, No Nose pain, No Nose discharge, No Nose congestion, No Mouth pain, No Mouth swelling, No Throat pain, No Throat swelling, No Other Cardiovascular: No Chest Pain, No Palpitations, No Orthopnea, No Paroxysmal Noc. Dyspnea, No Edema, No Lt Headedness, No Other Respiratory: No Cough, No Dry, No Shortness of breath, No SOB with excertion, No Wheezing, No Hemoptysis, No Pleuritic Pain, No Sputum, No Other Gastrointestinal: No Nausea, No Vomiting, No Abdominal Pain, No Diarrhea, No Constipation, No Melena, No Hematochezia, No Other Genitourinary: No Dysuria, No Frequency, No Incontinence, No Hematuria; R etention, Other (penial pain) Musculoskeletal: No other, No neck pain, No shoulder pain, No arm pain, No back pain, No hand pain, No leg pain, No foot pain Skin: No Rash, No Lesions, No Jaundice, No Bruising, No Other Objective Vitals Vital Signs Date Time Temp Pulse Resp B/P (MAP) Pulse Ox O2 Delivery O2 Flow Rate FiO2 12/08/24 12:26 68 12/08/24 10:00 95 Room Air 0.0 12/08/24 10:00 21 12/08/24 09:15 121/69 12/08/24 08:59 98.2 16 98.2 Intake/Output Intake and Output 12/08/24 07:00 Intake Total 850 ml Output Total 1503 ml Balance -653 ml Intake Oral 850 ml Output Urine Total 1500 ml Stool Total 3 ml # Bowel Movements 3 General Appearance: Alert, Oriented X3, Cooperative, No acute distress HEENT: Atraumatic, PERRLA Lungs: Clear to auscultation, Normal air movement Cardiovascular: Normal S1, Normal S2 Genitourinary: No Apparent Abnormalities (Baker catheterization) Musculoskeletal: Normal sensory function, Normal motor function Skin: Dry, Intact Psych/Mental Status: Mental status NL, Mood NL Medications Current Medications Medications Dose Ordered Sig/[place]ha Route Start Time Stop Time Status Last Admin Dose Admin Acetaminophen/ Hydrocodone Bitart 1 tab Q4HP PRN PO 11/28/24 12:15 11/29/24 10:39 1 TAB Ondansetron HCl 4 mg Q4HP PRN IV 11/28/24 12:15 Acetaminophen 650 mg Q6HP PRN PO 11/28/24 12:15 Morphine Sulfate 2 mg Q4HPRN PRN IV 11/28/24 12:15 Nitroglycerin 0.4 mg Q5MINP PRN [place] 11/28/24 12:15 12/01/24 20:47 0.4 MG Diagnostic Test (Pha) 1 strip ACHS 11/28/24 17:00 12/08/24 11:25 1 STRIP Insulin Human Regular HS SC 11/28/24 22:00 12/07/24 22:07 3 UNITS Insulin Human Regular AC SC 11/28/24 17:00 12/08/24 11:39 3 UNITS Dextrose 50 ml UD PRN IV 11/28/24 12:15 Tamsulosin HCl 0.4 mg HS PO 11/28/24 22:00 12/07/24 22:08 0.4 MG Patient Own Medication 1 tab DAILY PO 11/29/24 10:00 Levalbuterol HCl 0.625 mg Q6HR NEB 11/30/24 12:00 12/08/24 07:55 0.625 MG Ipratropium [place] 0.5 mg Q6HR NEB 11/30/24 12:00 12/08/24 07:55 0.5 MG Amiodarone HCl 200 mg Q12HR PO 12/02/24 22:00 12/08/24 09:13 200 MG Diltiazem HCl 120 mg DAILY PO 12/03/24 10:00 12/08/24 09:14 120 MG Magnesium Oxide 800 mg DAILY PO 12/03/24 10:00 12/08/24 09:14 800 MG Guaifenesin/ Dextromethorphan 10 ml Q4HP PRN PO 12/03/24 09:15 12/06/24 22:12 10 ML Isosorbide Mononitrate 30 mg DAILY PO 12/03/24 10:00 12/08/24 09:12 30 MG Pantoprazole Sodium 40 mg DAILY@0600 PO 12/04/24 08:52 12/08/24 06:31 40 MG Ferrous Sulfate 325 mg BIDWM PO 12/04/24 18:00 12/08/24 09:13 325 MG Apixaban 2.5 mg BID PO 12/04/24 10:00 12/06/24 21:42 2.5 MG Cefpodoxime Proxetil 200 mg Q12H PO 12/04/24 11:00 12/08/24 09:11 200 MG Cholecalciferol 2,000 unit DAILY PO 12/05/24 10:00 12/08/24 09:15 2,000 UNIT Furosemide 20 mg DAILY IV 12/05/24 10:00 12/07/24 09:34 20 MG Lactulose 30 ml Q6HR PO 12/06/24 12:00 12/07/24 05:53 30 ML Polyethylene Glycol 17 gm DAILYPRN PRN PO 12/07/24 10:00 Bisacodyl 10 mg DAILYP PRN [place] 12/07/24 10:00 Laboratory Results Laboratory Tests 12/06/24 08:10 Urinalysis Test 11/28/24 09:07 Urine Color Colorless (Yellow) Urine Clarity Turbid (Clear) H Urine pH 5.0 (5.0-9.0) Urine Specific [place] 1.011 (1.001-1.035) Urine Protein 1+ (Negative) H Urine Ketones Negative (Negative) Urine Blood 3+ /uL (Negative) H Urine Nitrite Negative (Negative) Urine Bilirubin Negative (Negative) Urine Urobilinogen Normal mg/dL (Negative) Urine Leukocyte Esterase 3+ /uL (Negative) Urine RBC 243 /hpf (0 - 3) Urine Microscopic WBC 127 /HPF (0-3) H Urine Squamous Epithelial Cells None seen /hpf (<5) Urine Bacteria Few /hpf (None Seen) H Urine Glucose 4+ mg/dL (Normal) H Microbiology Microbiology Date/Time Source Procedure Growth Status 11/28/24 09:07 Urine - Catheterized Urine Culture - Final Citrobacter koseri Complete 11/28/24 08:07 Blood Blood Culture - Final Citrobacter koseri Complete Labs and/or images reviewed: Labs reviewed by me, Image(s) reviewed by me Assessment/Plan Assessment/Plan Covering for nurse practitioner Damian Santiago -sepsis secondary to complicated cystitis , continue vantin -complicated cystitis -history of prostate cancer -acute hypoxic respiratory failure -obesity -atrial fibrillation with rapid ventricular rate -primary hypertension -questionable RV failure, probably secondary to previous [place] -hematuria, anemia, pernicious drop in hematocrit -CKD stage IIIB -acute coronary syndrome -constipation Plan discussed with: Patient Date of Service: December 08, 2024 Billing Provider: MONTY HAWKINS MD Common Visit Codes: [id number] INP/OBS CARE(HIGH) MONTY HAWKINS MD December 08, 2024 12:41
[2024-12-08] MEDS ORDERED: guaiFENesin-DM 100/10mg/5ml SYR PO PRN (15:15)
[2024-12-08] MEDS: guaiFENesin-DM 100/10mg/5ml SYR PO PRN (15:28)
--- NOTE | 2024-12-08 19:17 | DVHPN2 ---
Progress Note - Dictate Date Seen: December 08, 2024 Medical Necessity Reason Pt with a Central, PICC or Fol: Yes The following are medically ne: Curry Catheter Reason for curry catheter: Strict I&O Subjective Patient seen and examined at bedside. Breathing comfortably on room air Overnight events reviewed. History of Present Illness: A 79-year-old man with past medical history of prostate cancer, atrial fibrillation, CHF, hypertension, hyperlipidemia, diabetes, and [place] who presented to ED on 11/28/24 due to penile pain. Patient had just gotten out of the shower, was putting on his underwear when he felt a pull and then a pop with his Curry catheter. He then had a burning pain in his penis and there was no urine draining from the catheter, thus presented to ED. ER changed out the catheter and drained 700 ml yellow urine. He did have about 50 ml of hematuria at first which cleared up quickly. Pt also reported chronic shortness of breath and bilateral lower extremity edema. He reports he tried to get home oxygen but did not qualify. Patient was admitted for further care, and pulmonary consultation is requested for evaluation and management of acute hypoxic respiratory failure. Review of Systems: 14-point review of systems negative unless otherwise noted above. Past Medical History: Prostate cancer, atrial fibrillation, CHF, hypertension, hyperlipidemia, diabetes, and [place] Past Surgical History: CABG (2006) Medications: Reviewed. Allergies: No known drug allergies. Family History: No family history of premature CAD. No family history of lung disorders. Social History: Nonsmoker. No alcohol or illicit drug use. vital signs Vital Sign Date Time Temp Pulse Resp B/P (MAP) Pulse Ox O2 Delivery O2 Flow Rate FiO2 12/08/24 18:08 69 18 98 12/08/24 18:08 Room Air 12/08/24 18:08 0 21 21 12/08/24 16:23 98.2 132/78 (96) 98.2 Total Intake and Output 12/07/24 12/07/24 12/08/24 15:00 23:00 07:00 Intake Total 400 ml 450 ml Output Total 1053 ml 450 ml Balance -653 ml 0 ml medications Current Medications Medications Dose Ordered Sig/Mustapha Route Start Time Stop Time Status Last Admin Dose Admin Acetaminophen/ Hydrocodone Bitart 1 tab Q4HP PRN PO 11/28/24 12:15 11/29/24 10:39 1 TAB Ondansetron HCl 4 mg Q4HP PRN IV 11/28/24 12:15 Acetaminophen 650 mg Q6HP PRN PO 11/28/24 12:15 Morphine Sulfate 2 mg Q4HPRN PRN IV 11/28/24 12:15 Nitroglycerin 0.4 mg Q5MINP PRN SL 11/28/24 12:15 12/01/24 20:47 0.4 MG Diagnostic Test (Pha) 1 strip ACHS 11/28/24 17:00 12/08/24 17:27 1 STRIP Insulin Human Regular HS SC 11/28/24 22:00 12/07/24 22:07 3 UNITS Insulin Human Regular AC SC 11/28/24 17:00 12/08/24 17:27 2 UNITS Dextrose 50 ml UD PRN IV 11/28/24 12:15 Tamsulosin HCl 0.4 mg HS PO 11/28/24 22:00 12/07/24 22:08 0.4 MG Patient Own Medication 1 tab DAILY PO 11/29/24 10:00 Levalbuterol HCl 0.625 mg Q6HR NEB 11/30/24 12:00 12/08/24 18:08 0.625 MG Ipratropium [place] 0.5 mg Q6HR NEB 11/30/24 12:00 12/08/24 18:08 0.5 MG Amiodarone HCl 200 mg Q12HR PO 12/02/24 22:00 12/08/24 09:13 200 MG Diltiazem HCl 120 mg DAILY PO 12/03/24 10:00 12/08/24 09:14 120 MG Magnesium Oxide 800 mg DAILY PO 12/03/24 10:00 12/08/24 09:14 800 MG Isosorbide Mononitrate 30 mg DAILY PO 12/03/24 10:00 12/08/24 09:12 30 MG Pantoprazole Sodium 40 mg DAILY@0600 PO 12/04/24 08:52 12/08/24 06:31 40 MG Ferrous Sulfate 325 mg BIDWM PO 12/04/24 18:00 12/08/24 18:42 325 MG Apixaban 2.5 mg BID PO 12/04/24 10:00 12/06/24 21:42 2.5 MG Cefpodoxime Proxetil 200 mg Q12H PO 12/04/24 11:00 12/08/24 09:11 200 MG Cholecalciferol 2,000 unit DAILY PO 12/05/24 10:00 12/08/24 09:15 2,000 UNIT Furosemide 20 mg DAILY IV 12/05/24 10:00 12/07/24 09:34 20 MG Lactulose 30 ml Q6HR PO 12/06/24 12:00 12/07/24 05:53 30 ML Polyethylene Glycol 17 gm DAILYPRN PRN PO 12/07/24 10:00 Bisacodyl 10 mg DAILYP PRN TN 12/07/24 10:00 Guaifenesin/ Dextromethorphan 15 ml Q4HP PRN PO 12/08/24 15:15 Cancel Guaifenesin/ Dextromethorphan 15 ml Q4HP PRN PO 12/08/24 15:30 12/08/24 15:28 15 ML objective Gen.: Patient lying in bed in no apparent distress. Breathing on room air. Head: Normocephalic, atraumatic. Eyes: EOMI/PERRLA. Ears: Normal hearing. Normal anatomy. Neck/trachea: Trachea midline, supple. Nose: Normal external anatomy. Mouth: Moist mucous membranes. Chest: Decreased air entry bilaterally. No wheezing or rhonchi. Cardiovascular: Positive S1, positive S2. Regular rate and rhythm. Abdomen: Positive bowel sounds in all 4 quadrants. Soft, non-tender, non- distended. : Deferred. Rectal: Deferred. Skin: Warm, dry. Intact. Extremities: 2+ radial pulses bilaterally. No lower extremity edema. Neuro: Awake, alert, oriented x3. No gross motor or sensory deficits. Cranial nerves II through XII intact. Gait not assessed. laboratory and microbiology Laboratory Tests 12/06/24 08:10 Test 12/06/24 08:10 Range/Units Serum Glucose 145 H 74-106 mg/dL Assessment/Plan Impression: Acute hypoxic respiratory failure Sepsis 2/2 cystitis Atrial fibrillation with rapid ventricular response Congestive heart failure, diastolic Obesity Anemia Events: Breathing on room air No respiratory distress. Supplemental oxygen PRN No new complaints Plan for SNF placement Patient refusing PT. Complete antibiotic course Incentive spirometry Amiodarone PO Monitor hemoglobin Iron supplementation FOBT negative. Disposition per hospitalist. Labs and imaging reviewed. Rest of plan as noted below. Plan: Supplemental oxygen PRN Titrate to keep O2 sats above 92%. Continue bronchodilators. Continue antibiotics Cardiology recs appreciated Monitor hemoglobin Accu-Cheks, ISS. Monitor renal function. Monitor electrolytes. Supplement as necessary. Monitor ins and outs. DVT prophylaxis Prognosis: Poor given patient's multiple co-morbidities. Rest of plan per hospitalist and other consultants. Thank you for allowing me to participate in this patient's care. Further recommendations will depend on the patient's clinical course. Please do not hesitate to contact me if you have any questions or concerns. This medical document was created using an electronic medical record system with [employer]? dictation system. Although these documentations are being carefully reviewed, there may still be some phonetic and typographical changes. The errors are purely typographical, due to imperfection on the software program, and do not reflect any compromise in the patient's medical care. Dietary Evaluation Review Comments: Continue currrent dietary regimen including Vit D and iron and MVI. supplementation, consider Renal diet with protein restriction of 60g, if GFR worsens. Expected Outcomes/Goals: controlled DM, Plan discussed with: Patient, Other (DAYA Cuevas) LOKESH HERMAN MD December 08, 2024 19:17
[2024-12-09] VITALS (13 sets, daily range): BP systolic 112–135; BP diastolic 61–77; PULSE 65–70; RESP 14–20; TEMP 97.9–98.4; O2SAT 92–100
--- NOTE | 2024-12-09 08:40 | DVHDS2 ---
Discharge Summary Date of Admission November 28, 2024 at 12:13 Date of Discharge: December 09, 2024 Admitting Diagnosis Generalized weakness Wounds: None Labs/Diagnostic Data: Laboratory Results Test 12/09/24 05:40 12/07/24 09:50 12/06/24 08:10 12/05/24 04:49 POC Glucose 135 mg/dl (70-106) Stool Occult Blood Negative (Negative) Stool Occult Blood Sample #2 (Negative) Stool Occult Blood Sample #3 (Negative) White Blood Count 4.9 10^3/uL (4.4-10.8) Red Blood Count 3.28 10^6/uL (4.5-5.90) Hemoglobin 8.8 g/dL (13.5-17.5) Hematocrit 26.8 % (41.0-53.0) Mean Corpuscular Volume 81.8 fL (80.0-100.0) Mean Corpuscular Hemoglobin 26.8 pg (28.0-32.0) Mean Corpuscular Hemoglobin Concent 32.7 g/dL (32.0-36.0) Red Cell Distribution Width 17.6 % (11.8-14.3) Platelet Count 287 10^3/uL (140-450) Mean Platelet Volume 7.1 fL (6.9-10.8) Neutrophils (%) (Auto) 70.7 % (37.0-80.0) Lymphocytes (%) (Auto) 11.1 % (10.0-50.0) Monocytes (%) (Auto) 11.4 % (0.0-12.0) Eosinophils (%) (Auto) 6.3 % (0.0-7.0) Basophils (%) (Auto) 0.5 % (0.0-2.0) Neutrophils # (Auto) 3.5 10 ^3/uL (1.6-8.6) Lymphocytes # (Auto) 0.5 10 ^3/uL (0.4-5.4) Monocytes # (Auto) 0.6 10 ^3/uL (0-1.3) Eosinophils # (Auto) 0.3 10 ^3/uL (0-0.8) Basophils # (Auto) 0 10 ^3/uL (0-0.2) Nucleated Red Blood Cells 0.0 % Sodium Level 138 mmol/L (136-145) Potassium Level 3.9 mmol/L (3.5-5.1) Chloride Level 104 mmol/L (98-107) Carbon Dioxide Level 24 mmol/L (20-31) Anion Gap 10 (5-15) Blood Urea Nitrogen 18 mg/dL (9-23) Creatinine 1.52 mg/dL (0.700-1.30) Glomerular Filtration Rate Calc 47 mL/min (>90) BUN/Creatinine Ratio 11.8 (10.0-20.0) Serum Glucose 145 mg/dL (74-106) Calcium Level 8.8 mg/dL (8.7-10.4) Differential Total Cells Counted 100.0 (100) Neutrophils % (Manual) 83 (37.0-80.0) Band Neutrophils % (Manual) 0 Lymphocytes % (Manual) 11 (10.0-50.0) Monocytes % (Manual) 4 (0-12) Eosinophils % (Manual) 2 (0-7) Basophils % (Manual) 0 (0.0-2.0) Metamyelocytes % (manual) 0 Myelocytes % (Manual) 0 Promyelocytes % (Manual) 0 Blast Cells % (Manual) 0 Reactive Lymphocytes 0 Platelet Estimate Adequate Clumped Platelets Few Anisocytosis (manual) Slight Magnesium Level 1.9 mg/dL (1.6-2.6) Test 12/04/24 10:10 12/04/24 09:10 12/03/24 05:25 12/01/24 05:08 Blood Gas Specimen Type Arterial Blood Gas Sample Site Left radial Blood Gas Patient Temperature 37.0 Arterial Blood Date Drawn [id number] Arterial Blood pH 7.475 (7.350-7.450) Arterial Blood Partial Pressure CO2 29.3 mmHg (35.0-48.0) Arterial Blood Partial Pressure O2 64.1 mmHg (83.0-108.0) Arterial Blood HCO3 21.1 mmol/L (21.0-28.0) Arterial Blood Oxygen Saturation 91.7 % (94.0-98.0) Arterial Blood Base Excess -1.9 mmol/L (-2.0-3.0) Arterial Blood Oxyhemoglobin 90.9 % (94.0-98.0) Arterial Blood Carboxyhemoglobin 0.7 % (0.5-1.5) Arterial Blood Methemoglobin 0.2 % (0.0-1.5) Barrett Test Yes Blood Gas Total Hemoglobin 9.10 g/dL (13.5-17.5) Blood Gas Modality Room air Blood Gas Spontaneous Rate 20 FiO2 % 21.0 Phosphorus Level 3.3 mg/dL (2.4-5.1) Iron Level 16 ug/dL (65-175) Total Iron Binding Capacity 208 ug/dL (250-425) Percent Iron Saturation 7.7 % (20-55) Test 11/30/24 04:44 11/29/24 05:49 11/28/24 16:30 11/28/24 14:36 Free Prostate Specific Antigen <0.02 ng/mL (N/A) Percent Free Prostate Specific Ag <10.0 % (.) Prostate Specific Antigen Total 0.2 ng/mL (0.0-4.0) Vitamin B12 Level 580 pg/mL (211-911) Vitamin D 25-Hydroxy 19 ng/mL (.) 25-Hydroxy Vitamin D2 <1.0 ng/mL (.) 25-Hydroxy Vitamin D3 19 ng/mL (.) Total Bilirubin 0.3 mg/dL (0.2-1.0) Aspartate Amino Transferase (AST) 10 U/L (13-40) Alanine Aminotransferase (ALT) < 9 U/L (7-40) Alkaline Phosphatase 72 U/L (46-116) Total Protein 6.2 g/dL (5.7-8.2) Albumin 3.5 g/dL (3.2-4.8) Random Vancomycin Level 6.8 ug/mL (5-10) Lactic Acid Level 2.4 mmol/L (0.4-2.0) Influenza Type A Antigen Negative (Negative) Influenza Type B Antigen Negative (Negative) SARS-CoV-2 Antigen (Rapid) Negative (NEGATIVE) Test 11/28/24 10:53 11/28/24 09:07 11/28/24 08:07 Troponin I High Sensitivity 42 ng/L (</=54) Urine Color Colorless (Yellow) Urine Clarity Turbid (Clear) Urine pH 5.0 (5.0-9.0) Urine Specific [place] 1.011 (1.001-1.035) Urine Protein 1+ (Negative) Urine Ketones Negative (Negative) Urine Blood 3+ /uL (Negative) Urine Nitrite Negative (Negative) Urine Bilirubin Negative (Negative) Urine Urobilinogen Normal mg/dL (Negative) Urine Leukocyte Esterase 3+ /uL (Negative) Urine RBC 243 /hpf (0 - 3) Urine Microscopic WBC 127 /HPF (0-3) Urine Squamous Epithelial Cells None seen /hpf (<5) Urine Bacteria Few /hpf (None Seen) Urine Glucose 4+ mg/dL (Normal) B-Type Natriuretic Peptide 256.09 pg/mL (0-100) Other Laboratory Tests 12/06/24 08:10 Brief Hx & Hospital Course: Patient was originally seen by nurse practitioner Damian Santiago 79-year-old male with a history of hypertension atrial fibrillation CKD three acute coronary syndrome constipation history of prostate cancer came in for generalized weakness. Found to have complicated cystitis with Citrobacter treated with Ceftin 200 mg p.o. 2 times a day which he will continue in the shelter for two more weeks. Comorbid conditions treated appropriately. [facility] and [facility] for the urinary infection. The plan is acceptable to the patient and the at the bedside Patient has a history of five vessel CABG and multiple PTCAs also has a paroxysmal atrial fibrillation, patient received 2 units blood transfusion for severe anemia and stable Consults/Reason for consult Cardiology Dr. Whaley Operations or Procedures CT abdomen pelvis without contrast Condition at Discharge: Fair Final Diagnosis/Problems List -sepsis secondary to complicated cystitis on Ceftin 200 mg p.o. b.i.d. -complicated cystitis -history of prostate cancer -acute hypoxic respiratory failure -obesity -atrial fibrillation with rapid ventricular rate -primary hypertension -questionable RV failure, probably secondary to previous PA -acute anemia status post blood transfusion -CKD stage IIIB -acute coronary syndrome -constipation Discharge Disposition: [facility] Facility Discharge Instruct/Medications Diet: Cardiac 2g Na,low cholest Activity: Light activity Follow Up/Referral: Follow up with the shelter Medications: see list 35 (Time taken for discharge summary 35 minutes) Discharge Statement: "Patient was advised to return to the ER or call 911 if any headaches, dizziness, shortness of breath, chest pain, abdominal pain, bleeding, fevers, or worsening of medical condition. Patient was counseled about treatment plan, medications, possible side effects, patientverbalized understanding. All questions were answered to the best of my ability. This discharge took greater then 30 minutes in planning, reviewing documentation, counseling the patient, and discussing with other team members." ASSESSMENT ASSESSMENT Hospital Course Improved Assessment -sepsis secondary to complicated cystitis on Ceftin 200 mg p.o. b.i.d. -complicated cystitis -history of prostate cancer -acute hypoxic respiratory failure -obesity -atrial fibrillation with rapid ventricular rate -primary hypertension -questionable RV failure, probably secondary to previous PA -hematuria, anemia, pernicious drop in hematocrit -CKD stage IIIB -acute coronary syndrome -constipation Date of Service: December 09, 2024 Billing Provider: MONTY HAWKINS MD Common Visit Codes: 71940-TYD/OBS DISCH DAY >30min MONTY HAWKINS MD December 09, 2024 08:40
[2024-12-09 18:06] LABS: Vitamin B1, Whole Blood 68.8 nmol/L (66.5-200.0)
--- NOTE | 2024-12-09 22:49 | DVHPN2 ---
Progress Note - Dictate Date Seen: December 09, 2024 Medical Necessity Reason Pt with a Central, PICC or Fol: Yes The following are medically ne: Curry Catheter Reason for curry catheter: Strict I&O Subjective Patient seen and examined at bedside. Breathing comfortably on room air Overnight events reviewed. History of Present Illness: A 79-year-old man with past medical history of prostate cancer, atrial fibrillation, CHF, hypertension, hyperlipidemia, diabetes, and [place] who presented to ED on 11/28/24 due to penile pain. Patient had just gotten out of the shower, was putting on his underwear when he felt a pull and then a pop with his Curry catheter. He then had a burning pain in his penis and there was no urine draining from the catheter, thus presented to ED. ER changed out the catheter and drained 700 ml yellow urine. He did have about 50 ml of hematuria at first which cleared up quickly. Pt also reported chronic shortness of breath and bilateral lower extremity edema. He reports he tried to get home oxygen but did not qualify. Patient was admitted for further care, and pulmonary consultation is requested for evaluation and management of acute hypoxic respiratory failure. Review of Systems: 14-point review of systems negative unless otherwise noted above. Past Medical History: Prostate cancer, atrial fibrillation, CHF, hypertension, hyperlipidemia, diabetes, and [place] Past Surgical History: CABG (2006) Medications: Reviewed. Allergies: No known drug allergies. Family History: No family history of premature CAD. No family history of lung disorders. Social History: Nonsmoker. No alcohol or illicit drug use. vital signs Vital Sign Date Time Temp Pulse Resp B/P (MAP) Pulse Ox O2 Delivery O2 Flow Rate FiO2 12/09/24 16:00 98.2 69 18 112/61 (78) 92 98.2 12/09/24 10:00 Room Air* 0 21 Total Intake and Output 12/08/24 12/08/24 12/09/24 15:00 23:00 07:00 Intake Total 900 ml 600 ml Output Total 800 ml Balance 100 ml 600 ml medications Current Medications Medications Dose Ordered Sig/[place]ha Route Start Time Stop Time Status Last Admin Dose Admin Guaifenesin/ Dextromethorphan 15 ml Q4HP PRN PO 12/08/24 15:15 Cancel objective Gen.: Patient lying in bed in no apparent distress. Breathing on room air. Head: Normocephalic, atraumatic. Eyes: EOMI/PERRLA. Ears: Normal hearing. Normal anatomy. Neck/trachea: Trachea midline, supple. Nose: Normal external anatomy. Mouth: Moist mucous membranes. Chest: Decreased air entry bilaterally. No wheezing or rhonchi. Cardiovascular: Positive S1, positive S2. Regular rate and rhythm. Abdomen: Positive bowel sounds in all 4 quadrants. Soft, non-tender, non- distended. : Deferred. Rectal: Deferred. Skin: Warm, dry. Intact. Extremities: 2+ radial pulses bilaterally. No lower extremity edema. Neuro: Awake, alert, oriented x3. No gross motor or sensory deficits. Cranial nerves II through XII intact. Gait not assessed. laboratory and microbiology Laboratory Tests 12/06/24 08:10 Test 12/06/24 08:10 Range/Units Serum Glucose 145 H 74-106 mg/dL Assessment/Plan Impression: Acute hypoxic respiratory failure Sepsis 2/2 cystitis Atrial fibrillation with rapid ventricular response Congestive heart failure, diastolic Obesity Anemia Events: Breathing on room air No respiratory distress. Supplemental oxygen PRN No new complaints Plan for SNF placement Complete antibiotic course Incentive spirometry Amiodarone PO Monitor hemoglobin Iron supplementation FOBT negative. Disposition per hospitalist. Labs and imaging reviewed. Rest of plan as noted below. Plan: Supplemental oxygen PRN Titrate to keep O2 sats above 92%. Continue bronchodilators. Continue antibiotics Cardiology recs appreciated Monitor hemoglobin Accu-Cheks, ISS. Monitor renal function. Monitor electrolytes. Supplement as necessary. Monitor ins and outs. DVT prophylaxis Prognosis: Guarded given patient's multiple co-morbidities. Rest of plan per hospitalist and other consultants. Thank you for allowing me to participate in this patient's care. Further recommendations will depend on the patient's clinical course. Please do not hesitate to contact me if you have any questions or concerns. This medical document was created using an electronic medical record system with [employer] dictation system. Although these documentations are being carefully reviewed, there may still be some phonetic and typographical changes. The errors are purely typographical, due to imperfection on the software program, and do not reflect any compromise in the patient's medical care. Dietary Evaluation Review Comments: Continue currrent dietary regimen including Vit D and iron and MVI. supplementation, consider Renal diet with protein restriction of 60g, if GFR worsens. Expected Outcomes/Goals: controlled DM, Plan discussed with: Patient, Other (DAYA Cuevas) LOKESH HERMAN MD December 09, 2024 22:49
== END 2024-12-09 18:31 | DRG 871 ==
LOC: EDBD 07:12 → ER 07:15 → OVERFLOW 12:13 → TELE-EAST 17:52 → ICU CENTRL 11-29 15:34 → DOU IN ICU 12-03 20:37 → TELE-CENTR 12-06 17:49
PROVIDERS: ADMIT Nurse Practitioner Acute Care; ATTEND Nurse Practitioner Acute Care
PROC: 30233N1 Transfusion of Nonautologous Red Blood Cells into Peripheral Vein, Percutaneous Approach (ICD-10-PCS; principal; 2024-12-01)
DX: A41.9 Sepsis, unspecified organism (principal); J96.01 Acute respiratory failure with hypoxia; N17.0 Acute kidney failure with tubular necrosis; E87.20 Acidosis, unspecified; I13.0 Hypertensive heart and chronic kidney disease with heart failure and stage 1 through stage 4 chronic kidney disease, or unspecified chronic kidney disease; I24.9 Acute ischemic heart disease, unspecified; R71.0 Precipitous drop in hematocrit; I50.30 Unspecified diastolic (congestive) heart failure; E11.65 Type 2 diabetes mellitus with hyperglycemia; E66.9 Obesity, unspecified; Z68.29 Body mass index [BMI] 29.0-29.9, adult; E11.22 Type 2 diabetes mellitus with diabetic chronic kidney disease; N18.32 Chronic kidney disease, stage 3b; F17.200 Nicotine dependence, unspecified, uncomplicated; I48.0 Paroxysmal atrial fibrillation; N30.90 Cystitis, unspecified without hematuria; Z53.20 Procedure and treatment not carried out because of patient's decision for unspecified reasons; E78.5 Hyperlipidemia, unspecified; I25.10 Atherosclerotic heart disease of native coronary artery without angina pectoris; K59.00 Constipation, unspecified; Z95.1 Presence of aortocoronary bypass graft; Z85.46 Personal history of malignant neoplasm of prostate; Z88.8 Allergy status to other drugs, medicaments and biological substances
CPT/HCPCS: 36415; 36600; 71045; 71250; 74176; 80048; 80053; 80202; 81001; 82270; 82306; 82607; 82805; 82962; 83540; 83550; 83605; 83735; 83880; 84100; 84154; 84425; 84484; 85007; 85014; 85018; 85025; 85027; 86850; 86900; 86901; 86920; 87040; 87077; 87086; 87088; 87186; 87426; 87804; 93005; 93306; 94640; 97110; 97116; 97163; 97530; 99291; G0378; J0692; J1815